=== PATIENT | female | born 1950 | race Caucasian/White ===

== ENCOUNTER 2016-07-14 16:04 | Inpatient (IN) | payer MEDICARE, OTHER ==
[~2016-07-14] VITALS: Ht 152.4 cm; Wt 84.4 kg
--- NOTE | ~2016-07-14 | PR ---
[place], [place] PROGRESS NOTE NAME: DESMOND GRIFFIN UNIT #: [id number] ROOM: [facility] DOCTOR: AVELINO ORTIZ MD,ANGEL BIRTHDATE: [birth year] DOS: 07/17/2016 SUBJECTIVE: The patient was seen and examined on 07/17/2016. She has been sitting on the bed at this time complaining of shortness of breath, intermittent nonproductive cough with minimal sputum expectoration. Denies symptoms of chest pain. She stated that she has been noted yesterday without any further improvement. OBJECTIVE: VITAL SIGNS: Showed normal temperature, respiratory rate 18, heart rate of 90, blood pressure 142/69. Pulse oxygen saturation of the patient recorded on 4 liters nasal cannula 96% saturation. HEENT: Shows moderate obesity. NECK: Supple. CARDIOVASCULAR SYSTEM: S1, S2 audible. LUNGS: For the patient without any wheeze or crackles. ABDOMEN: Soft, nontender. LABORATORY DATA: Culture of the sputum for the patient noted light growth of yeast from the patient . CBC this morning, WBC count 21.1, hemoglobin 9.4, hematocrit 30.4, platelet count 66,000. CMP of the patient this morning, glucose 294, BUN 41, creatinine 1.87. Albumin 2.5. IMPRESSION: The patient with ongoing acute exacerbation of chronic obstructive pulmonary disease with acute tracheobronchitis, acute on chronic hypoxic respiratory failure, improving leukopenia for the patient as well. Anemia, thrombocytopenia, the patient has been resolving. PLAN OF TREATMENT: Continuation of the bronchodilators, oxygen supplementation, corticosteroids. Medical management of hyperglycemia with the steroids that has been noted increased with use of the corticosteroids. Fibrobronchoscopy was suggested and planned to be done in the morning. The patient accepted the procedure. This should help find out more accurate pulmonary infection and to help resolve the coughing. Other symptoms of the patient which has been present with maximum medical therapy. NPO past midnight status will be achieved for tomorrow morning since the patient was agreeable for the procedure. Other supportive treatment in the meantime continued. Continue with the other treatment plan of management. BiPAP for this patient if tolerated could be used. [place], [place] PROGRESS NOTE NAME: DESMOND GRIFFIN UNIT #: [id number] ROOM: [facility] DOCTOR: ANGEL PRETTY MD BIRTHDATE: [birth year] ANGEL YOU MD CM:PNTRANS [phone] ANGEL ORTIZ MD 07/17/16 1444 interface
--- NOTE | ~2016-07-14 | PR ---
[place], [place] PROGRESS NOTE NAME: [id number] UNIT #: [id number] ROOM: [facility] DOCTOR: AVELINO ORTIZ MD,ANGEL BIRTHDATE: [birth year] DOS: 07/18/2016 SUBJECTIVE: She has been kept n.p.o. past midnight and bronchoscopy done today. Noted severe coughing and shortness of breath intermittently which was noted worse at rest. The wheezing was also described intermittently. There were no symptoms of chest pain. She was continued on oxygen supplementation. OBJECTIVE: VITAL SIGNS: Normal temperature, respiratory rate 16, heart rate 99, blood pressure 139/57. Pulse oxygen saturation of the patient on 3 liters nasal cannula 94% saturation recorded. HEENT AND NECK: Neck with chronic obesity. Neck was supple. Head was atraumatic. CARDIOVASCULAR: S1, S2 audible. LUNGS: Noted without any crackles. Scattered wheezing. ABDOMEN: Soft, nontender. LABORATORY DATA: CBC this morning: WBC count increased to 28.9. Hemoglobin 9.2, hematocrit 30.0, and platelet count 90,000. CMP this morning, BUN 51, creatinine 1.45. Glucose was noted as 258. Albumin 2.8, total protein 5.8. Blood glucose yesterday noted 153. IMPRESSION: Ongoing acute exacerbation of chronic obstructive pulmonary disease in the patient with acute bacterial pneumonia, acute on chronic hypoxic respiratory failure, leukocytosis, history of metastatic lung cancer, and other problems. PLAN OF TREATMENT: Proceed with bronchoscopy. At this time, no immediate change in treatment needs to be done. The patient would be assessed. If any changes in the treatment, that should be done after the bronchoscopy. Continue other supportive therapy, plan of management, usual care and management. Usual medical management of therapies. ANGEL YOU MD CM:EDILIA [id number] ANGEL ORTIZ MD 07/18/16 1147 interface
--- NOTE | ~2016-07-14 | PR ---
[place], [place] PROGRESS NOTE NAME: DESMOND GRIFFIN UNIT #: [id number] ROOM: [facility] DOCTOR: ANGEL PRETTY MD BIRTHDATE: [birth year] DOS: 07/16/2016 SUBJECTIVE: She has reported reduction in symptoms of shortness of breath and cough. The coughing has been noted with intermittent sputum expectoration. Denies any chest pain, the edema of lower extremities noted somewhat decreased. OBJECTIVE: VITAL SIGNS: Normal temperature, respiratory rate 18, heart rate 94, blood pressure 141/70. This morning, pulse oxygen saturation on 4 liters nasal cannula 94% saturation. HEENT: Chronic obesity. NECK: Supple. CARDIOVASCULAR: S1, S2 audible. LUNGS: Moderately reduced breath sounds with questionable crackles without any wheezing. ABDOMEN: Soft and obese. EXTREMITIES: Remains unchanged from yesterday. LABORATORY DATA: The patient's CMP today, BUN 29, creatinine 1.77, glucose of 256. The culture of the sputum preliminary showing normal laila, final culture results were pending. The cultures were taken on 07/15/2016. CBC of this morning, WBC count 13.5, hemoglobin 9.3, hematocrit 38.3, platelet count 41,000. IMPRESSION: 1. The patient with resolution of the leukopenia with persistent anemia and thrombocytopenia with history of metastatic lung cancer. 2. Acute pneumonia for this patient with acute on chronic hypoxic respiratory failure as well. 3. Chronic obesity. 4. Congestive heart failure, possibility with diastolic dysfunction. PLAN OF TREATMENT: Continue antibiotics, monitoring leukocytosis. Continue oxygen supplementation shows that the BiPAP and IV Solu-Medrol for acute exacerbation of chronic obstructive pulmonary disease. Continue current plan of management with oxygen supplementation, bronchodilators, antibiotics, and other medical treatment as in progress. Supportive plan of management. [place], [place] PROGRESS NOTE NAME: DESMOND GRIFFIN UNIT #: [id number] ROOM: [facility] DOCTOR: ANGEL PRETTY MD BIRTHDATE: [birth year] ANGEL YOU MD CM:PNTRANS [id number] ANGEL ORTIZ MD 07/16/16 2154 interface
--- NOTE | ~2016-07-14 | PR ---
[place], [place] PROGRESS NOTE NAME: DESMOND GRIFFIN UNIT #: [id number] ROOM: 529 DOCTOR: SATYA MATTSON MD BIRTHDATE: [birth year] DOS: 07/23/2016 SUBJECTIVE: The patient is still short of breath though feels better. She is awake, alert and responsive. REVIEW OF SYSTEMS HEENT: No trouble swallowing. No double vision. No loss of vision. No pain. ENT AND RESPIRATORY: No wheeze. No change in voice. No cough. No shortness of breath. No coughing up blood. No epistaxis. CARDIOLOGIC: No chest pain. No dizziness. No irregular heartbeat. No leg edema. No palpitations. No shortness of breath. HEMATOLOGIC AND LYMPH: No past transfusion. No fatigue. No loss of appetite. No easy bruising. GASTROENTEROLOGIC: No change in bowel habits. No vomiting blood. No abdominal cramping. No nausea. No vomiting. No diarrhea. No constipation. No blood in stool. FEMALE REPRODUCTIVE: No dyspareunia. No pelvic pain. MUSCULOSKELETAL: No back pain. No muscle pain or weakness. No tingling/numbness. UROLOGIC: No pain with urination. No difficulty urinating. No frequent urination. NEUROLOGIC: No burning pain in feet. No trouble with coordination. No loss of consciousness. No headache. No tingling/numbness. No memory loss. PHYSICAL EXAMINATION: GENERAL: She is a pleasant woman, in no apparent distress. VITAL SIGNS: Blood pressure 166/72, respirations 20, pulse 85 and temperature 97.7. HEENT: Normocephalic, atraumatic NECK AND THYROID: Supple. No JVD, thyromegaly, or lymphadenopathy. HEART: Normal S1, S2. Regular rate and rhythm. LUNGS: Show bilateral expiratory wheeze. ABDOMEN: Soft. Nontender, nondistended. Bowel sounds present. EXTREMITIES: Normal ROM. No clubbing. No edema. LABORATORY DATA: Sodium 136, potassium 4.4, chloride 94, bicarbonate 31 and EGFR is 36. White count 12.9, hemoglobin 10.0, hematocrit 31.9, platelet count 233. Peripheral smear shows nucleated cells, myelocytes and metamyelocytes. ASSESSMENT: 1. Leukocytosis, reactive. 2. Anemia of neoplastic disorder. 3. Abnormal peripheral smear. 4. Exacerbation of chronic obstructive pulmonary disease. 5. Possible sepsis. PLAN: She will continue antibiotics and her breathing is being treated accordingly. She has got abnormal peripheral smear and we will just keep a close watch, this is probably stress-induced. I will follow the counts on outpatient; if she continues abnormal peripheral smear, then further [place], [place] PROGRESS NOTE NAME: DESMOND GRIFFIN UNIT #: [id number] ROOM: 529 DOCTOR: SATYA MATTSON MD BIRTHDATE: [birth year] intervention. In the meantime, chemo is on hold. If her hemoglobin and hematocrit drops, then further intervention. Discussed with the patient in detail. Ample time was given for the patient to ask me questions. VQ scan has been ordered. SATYA MATTSON MD CM:PNTRANS [id number] SATYA MATTSON MD 07/23/16 231 interface
--- NOTE | ~2016-07-14 | PR ---
[place], [place] PROGRESS NOTE NAME: DESMOND GRIFFIN UNIT #: [id number] ROOM: 529 DOCTOR: ANGEL PRETTY MD BIRTHDATE: [birth year] DOS: 07/22/2016 SUBJECTIVE: The patient was still complaining of symptoms of shortness of breath with exertion. The cough has been noted mild for this patient at this time. The wheezing has been noted intermittently. Denies symptoms of chest pain or any abdominal pain. OBJECTIVE: VITAL SIGNS: Shows normal temperature, respiratory rate 20, heart rate 77, and blood pressure 146/74. Pulse oxygen saturation on 4 liters nasal cannula 99% saturation recorded. HEENT: Shows no acute change. NECK: Supple. CARDIOVASCULAR SYSTEM: S1, S2 audible. LUNGS: Noted moderate decreased breath sounds without any wheezing or crackles. ABDOMEN: Noted soft, nontender. EXTREMITIES: Shows no edema. IMPRESSION: 1. The patient who has been currently noted with gradual reduction in resolution of acute exacerbation of chronic obstructive pulmonary disease, acute tracheobronchitis. 2. History of metastatic lung cancer. PLAN OF TREATMENT: No changes in the plan of management. Continue current therapy plan as in progress. Other supportive therapy, plan of care. Usual treatment. Supportive plan of management. ANGEL YOU MD CM:PNTRANS [id number] ANGEL ORTIZ MD 07/22/16 1527 interface
--- NOTE | ~2016-07-14 | PROC NOTE ---
[place], [place] PROCEDURE NOTE NAME: DESMOND GRIFFIN UNIT #: [id number] ROOM: 529 DOCTOR: AVELINO ORTIZ MD,ANGEL BIRTHDATE: [birth year] DOS: 07/18/2016 PROCEDURE: Bronchoscopy. PREOPERATIVE DIAGNOSES: The patient with coughing and wheezing, not resolving with current treatment with exacerbation of chronic obstructive pulmonary disease. POSTOPERATIVE DIAGNOSES: Removal of multiple plugs and mucus in endobronchial tree bilaterally without any finding of endobronchial lesions. PROCEDURE DESCRIPTION: Informed consent obtained for the patient. The patient was brought to the OR and placed in supine position. Conscious sedation was administered by the Anesthesia Department. After achieving appropriate sedation, airway introduced into the mouth. Bronchoscope advanced into the airway into laryngeal area. Epiglottis and vocal cord were seen. The vocal cord for the patient was seen moving symmetrically with movements. Bronchoscope advanced through the vocal cord. The patient's tracheal lumen showed moderate amount of thick mucus secretion with small purulent secretion suctioned out with the help of normal saline wash and sent for cultures. The sofía was noted sharp. Right upper, right middle, left upper, lingula, lower lobe bronchi were all examined bilaterally. All the secretions of the patient suctioned out with the help of normal saline wash for this patient causing impaction of the endobronchial mucus plugs of the patient bilaterally, sent for culture. Procedure was well tolerated by the patient without any complications. Postoperative findings will be discussed with the patient once the patient recovers the effects of acute sedation. Based on the current bronchoscopy, no change in treatment needs to be done. ANGEL YOU MD CM:PROCNOTE:PROCEDURE NOTE [id number] ANGEL ORTIZ MD
--- NOTE | ~2016-07-14 | PR ---
[place], [place] PROGRESS NOTE NAME: DESMOND GRIFFIN UNIT #: [id number] ROOM: 529 DOCTOR: SATYA MATTSON MD BIRTHDATE: [birth year] DOS: 07/21/2016 SUBJECTIVE: The patient is doing better, though still having difficulty breathing. REVIEW OF SYSTEMS: HEENT: No trouble swallowing. No double vision. No loss of vision. No pain. ENT AND RESPIRATORY: No wheeze. No change in voice. No cough. No shortness of breath. No coughing up blood. No epistaxis. CARDIOLOGIC: No chest pain. No dizziness. No irregular heartbeat. No leg edema. No palpitations. No shortness of breath. HEMATOLOGIC AND LYMPH: No past transfusion. No fatigue. No loss of appetite. No easy bruising. GASTROENTEROLOGIC: No change in bowel habits. No vomiting blood. No abdominal cramping. No nausea. No vomiting. No diarrhea. No constipation. No blood in stool. FEMALE REPRODUCTIVE: No dyspareunia. No pelvic pain. MUSCULOSKELETAL: No back pain. No muscle pain or weakness. No tingling/numbness. UROLOGIC: No pain with urination. No difficulty urinating. No frequent urination. NEUROLOGIC: No burning pain in feet. No trouble with coordination. No loss of consciousness. No headache. No tingling/numbness. No memory loss. PHYSICAL EXAMINATION: GENERAL: She is a pleasant woman in no apparent disorders. VITAL SIGNS: Stable. She is afebrile. HEENT: Normocephalic, atraumatic. NECK AND THYROID: Supple. No JVD, thyromegaly, or lymphadenopathy. HEART: Normal S1, S2. Regular rate and rhythm. LUNGS: Bilateral expiratory wheeze. ABDOMEN: Soft. Nontender, nondistended. Bowel sounds present. EXTREMITIES: Normal ROM. No clubbing. No edema. ASSESSMENT: 1. Exacerbation of chronic obstructive pulmonary disease. 2. Metastatic lung cancer. 3. Leukocytosis, reactive. 4. Anemia of neoplastic disorder. PLAN: We will wait for overall condition to improve. Continue the broad-spectrum antibiotics and the treatment exacerbation of chronic obstructive pulmonary disease. We will hold the chemo for now. We will keep a close watch on her hemoglobin and hematocrit. If it drops further, then further intervention. Discussed with the patient. [place], [place] PROGRESS NOTE NAME: DESMOND GRIFFIN UNIT #: [id number] ROOM: 529 DOCTOR: SATYA MATTSON MD BIRTHDATE: [birth year] SATYA MATTSON MD CM:PNVIVIANE 4 3 SATYA MATTSON MD 07/21/16944 interface
--- NOTE | ~2016-07-14 | PR ---
[place], [place] PROGRESS NOTE NAME: DESMOND GRIFFIN UNIT #: [id number] ROOM: 529 DOCTOR: ANGEL PRETTY MD BIRTHDATE: [birth year] DOS: 07/19/2016 PULMONARY FOLLOWUP NOTE SUBJECTIVE: The patient was seen and examined on 07/19/2016. She has bronchoscopy done yesterday with reduction in symptoms of cough, shortness of breath. The patient was still describing. There were no symptoms of chest pain. The wheezing has been described intermittently. She was transferred to medical floor. OBJECTIVE: VITAL SIGNS: Normal temperature, respiratory rate 20, heart rate 98, blood pressure 160/70. Pulse oxygen saturation of the patient noted on 4 liters nasal cannula 97% saturation. HEENT: Chronic obesity. NECK: Supple. CARDIOVASCULAR: S1, S2 audible. LUNGS: The patient was noted without any crackles. Scattered expiratory wheezing. ABDOMEN: Soft, obese, nontender. EXTREMITIES: Chronic obesity. LABORATORY DATA: CBC that was done this morning: The patient showed WBC count 22.8, hemoglobin 9.6, hematocrit 30.9, platelet count 124,000. The Gram stain of the bronchial washing on the patient, many white blood cells, moderate epithelial cells, few gram-positive cocci in pairs and a few gram-negative bacilli. IMPRESSION: 1. The patient with acute on chronic hypoxic respiratory failure with acute exacerbation of chronic obstructive pulmonary disease as well as suspected acute pneumonia. 2. Leukocytosis, which has been noted at this time with previous leukopenia. 3. Resolving thrombocytopenia, progressive. 4. 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 PLAN OF TREATMENT: Monitoring culture results. Continue bronchodilators and oxygen supplementation. The dose of Solu-Medrol will be decreased for the patient to b.i.d. dosing today. Other supportive therapy, plan and management to be continued as well. Usual care. Further treatment changes will be done based on the progression of the illness and the culture results. [place], [place] PROGRESS NOTE NAME: DESMOND GRIFFIN UNIT #: [id number] ROOM: 529 DOCTOR: ANGEL PRETTY MD BIRTHDATE: [birth year] ANGEL YOU MD CM:PNTRANS [id number] ANGEL ORTIZ MD 07/19/16 1542 interface
--- NOTE | ~2016-07-14 | PR ---
[place], [place] PROGRESS NOTE NAME: DESMOND GRIFFIN UNIT #: [id number] ROOM: 529 DOCTOR: ANGEL PRETTY MD BIRTHDATE: [birth year] DOS: 07/21/2016 SUBJECTIVE: She has been noted comfortable at this time, resting and sitting on the chair. Shortness of breath of the patient was still described for the patient as the main complaint for the patient with partial reduction. Coughing has been improving. There are no symptoms of chest pain, wheezing described by the patient. She has bronchoscopy done last week. OBJECTIVE: VITAL SIGNS: Showed normal temperature, respiratory rate 20, heart rate of 94, blood pressure 172/81. Pulse oxygen saturation for the patient recorded on 4 L nasal cannula 96%-97% saturation. HEENT: Examination shows no acute change. NECK: Supple. CARDIOVASCULAR: S1, S2 audible. LUNGS: Without any wheezing or crackles at the present time. ABDOMEN: Soft, nontender. EXTREMITIES: Show some mild edema. LABORATORY DATA: BMP today, BUN 52, creatinine 1.49, glucose 267, remaining electrolytes normal. CBC today, WBC count 11,000, hemoglobin 9.6, hematocrit 29.8, platelet count 159,000. IMPRESSION: 1. The patient with slow gradual reduction and improvement in the respiratory symptom noted with acute on chronic hypoxic respiratory failure, exacerbation of chronic obstructive pulmonary disease. 2. History of metastatic lung cancer as a squamous cell cancer. PLAN OF TREATMENT: No changes from the pulmonary standpoint at this time need to be done. Continue Solu-Medrol for this patient b.i.d. dosing, bronchodilators, oxygen supplementation, other plan of management. Leukocytosis has been resolving. [place], [place] PROGRESS NOTE NAME: DESMOND GRIFFIN UNIT #: [id number] ROOM: 529 DOCTOR: ANGEL PRETTY MD BIRTHDATE: [birth year] ANGEL YOU MD CM:PNTRANS [id number] ANGEL ORTIZ MD 07/21/16 1442 interface
--- NOTE | ~2016-07-14 | CON ---
[place], [place] REPORT OF CONSULTATION NAME: DESMOND GRIFFIN UNIT #: [id number] ROOM: [facility] DOCTOR: SATYA MATTSON MD BIRTHDATE: [birth year] DOS: 07/15/2016 HISTORY OF PRESENT ILLNESS: The patient is a pleasant woman with a history of metastatic lung cancer who called me yesterday that she is very short of breath ____ came to my office for blood work when she was noticed to have increasing short of breath with productive cough. Subsequently, she was advised to go to the Emergency Room for further evaluation. PAST MEDICAL HISTORY: Significant for metastatic lung cancer, chronic kidney disease, tsatk-[id number]-nayhtps respiratory failure, diabetes mellitus, diastolic CHF, essential hypertension, hypothyroidism, as well as O2 dependent COPD. PAST SURGICAL HISTORY: Appendectomy, oophorectomy, history of dilatation and curretage, history of tubal ligation. SOCIAL HISTORY: No drinking or drug use, stopped smoking recently. FAMILY HISTORY: Mother had [place] at 56. Father had bladder cancer and COPD. ALLERGIES: IVP DYE, IODINE, BACTRIM. MEDICATIONS: She is on albuterol, Xanax, Norvasc, aspirin, Wellbutrin, BuSpar, fish oil, Breo Ellipta, furosemide, gabapentin, insulin, levothyroxine sodium, lovastatin, oxygen 4 liters per minute, potassium chloride, Januvia, and sodium chloride. REVIEW OF SYSTEMS: CONSTITUTIONAL: No chills. No fatigue. No fever. No loss of appetite. No night sweats. No weakness. No weight loss. HEENT: No trouble swallowing. No loss of smell. No loss of hearing. No double vision. No pain. No discharge. ENT AND RESPIRATORY: She has been having increasing shortness of breath and wheezing. No sore throat. No change in voice. No hearing loss. No nose bleed. No cough. No trouble breathing through nose. No coughing up blood. No epistaxis. CARDIOVASCULAR: No chest pain. No dizziness. No irregular heartbeat. No leg edema. No pain in legs while walking. No palpitations. No shortness of breath. DERMATOLOGIC: No acne. No hives. No laceration. No mole. No rash. ENDOCRINE: No cold intolerance. No diabetes. No fatigue. No hot flashes. No polydipsia. No polyuria. No urinating frequently. No weight loss. HEMATOLOGIC AND LYMPH: No fatigue. No easy bruising. GASTROENTEROLOGIC: No change in bowel habits. No indigestion. No frequent bloating. No vomiting blood. No abdominal cramping. No nausea. No heartburn. No vomiting. No abdominal pain. No dysphagia. No diarrhea. No constipation. No blood in stool. FEMALE REPRODUCTIVE: No vaginal itching. No difficulty urinating. No heavy periods. No dyspareunia. No sexually active. No dysmenorrhea. No pelvic pain. No breast pain. No nipple discharge. No abnormal vaginal discharge. No hot flashes. [place], [place] REPORT OF CONSULTATION NAME: DESMOND GRIFFIN UNIT #: [id number] ROOM: [facility] DOCTOR: SATYA MATTSON MD BIRTHDATE: [birth year] MUSCULOSKELETAL: No back pain. No muscle pain or weakness. No neck pain. No tingling/numbness. No swelling/bruising. No osteoporosis treatment. OPHTHALMOLOGIC: No double vision. No diminished vision. No loss of vision. UROLOGIC: No dysuria. No frequent nighttime urination. No irregular periods. No pain with urination. No difficulty urinating. No blood in urine. No frequent urination. No urinary incontinence. NEUROLOGIC: No loss of sensation in specific body area. No vertigo. No burning pain in feet. No trouble with balance. No trouble with coordination. No loss of consciousness. No loss of feeling/power. No confusion. No headache. No tingling/numbness. PSYCHOLOGIC: No tinnitus. No headaches. No shortness of breath. No weight decrease. No nausea. No vomiting. No abdominal discomfort. No constipation. No diarrhea. No depression. No anxiety. PHYSICAL EXAMINATION: GENERAL: Pleasant woman, in no apparent distress, short of breath. VITAL SIGNS: Stable. She is afebrile. HEENT: Oral mucosa appears intact. The external ears are normal in appearance. Nares are patent without lesions, exudates, erythema, or inflammation. Tongue is symmetrical. Uvula is midline. NECK AND THYROID: Neck supple without palpable masses. Trachea is midline. No thyromegaly. No carotid bruit or JVD. BREASTS: Normal. Nipples unremarkable. No drainage. No lumps felt on either side. HEART: Normal S1, S2, without significant murmur, rub, or gallop. LUNGS: Bilateral expiratory wheeze and decrease air sounds bilaterally. ABDOMEN: No costovertebral angle tenderness. Soft. No organomegaly or masses. Nontender. No hernias present. Liver and spleen are not palpable. LYMPHATIC: No adenopathy noted in the cervical, supraclavicular, axillary, or inguinal regions. NEUROLOGIC: Nonfocal. Oriented to person, place, and time. MENTAL STATUS: Appropriate for mood and affect. PERIPHERAL PULSES: No varicosities. Femoral and pedal pulses are palpable. EXTREMITIES: Without cyanosis, clubbing, or edema. No gross anomalies. LABORATORY DATA: Sodium of 140, potassium 3.9, chloride 102, bicarbonate 28, EGFR is 30, AST is 26, ALT 51. White count of 4.7, hemoglobin 10.4, hematocrit 33.3, platelet count of 34,000. ASSESSMENT: 1. Metastatic lung cancer, undergoing chemotherapy. 2. Pancytopenia secondary to chemotherapy. 3. Anemia of neoplastic disorder. 4. Exacerbation of chronic obstructive pulmonary disease. PLAN: We will keep a close watch at this time. The patient is not bleeding or bruising but if the hemoglobin or platelet drop, then further intervention. Her white count is low ____. Thanks for consulting and letting me participate in the care of this interesting [place], [place] REPORT OF CONSULTATION NAME: DESMOND GRIFFIN UNIT #: [id number] ROOM: [facility] DOCTOR: SATYA MATTSON MD BIRTHDATE: [birth year] patient. SATYA MATTSON MD CM:CONSTR:REPORT OF CONSULTATION 07/15/16 1245 interface
--- NOTE | ~2016-07-14 | CON ---
[place], [place] REPORT OF CONSULTATION NAME: DESMOND GRIFFIN UNIT #: [id number] ROOM: [facility] DOCTOR: ANGEL PRETTY MD BIRTHDATE: [birth year] DOS: 07/15/2016 PULMONARY CONSULTATION EVALUATION AND MANAGEMENT REQUESTING PHYSICIAN: Hospitalist Services. REASON FOR CONSULTATION: Assess the patient for symptoms of acute shortness of breath and current abnormal respiratory symptom. 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 She was seen by Dr. Pinto in office yesterday, noted with increased hypoxia with usual oxygen supplementation with symptoms of increased shortness of breath. She was sent to the Emergency Room for further assessment. Shortness of breath has been occurring for the patient for the last few days as per the patient with minimal exertion. She was also noted with coughing, which has been noted productive with yellowish sputum expectoration. She denies any symptoms of acute chest pain. Denies symptoms of hemoptysis. The patient has been currently admitted to the hospital for the medical management of current problem. REVIEW OF SYSTEMS: CONSTITUTIONAL: She does complain of symptoms of fatigue and tiredness. Denies symptoms of fever or chills. EYES: Denies any burning, redness, or tenderness. EARS, NOSE, AND THROAT: No sore throat, hoarseness, otalgia, postnasal drainage. CARDIOVASCULAR: Denies anginal pain noted with increased edema of the lower extremities recently as well without any pain. EYES: Denies any burning, redness, or tenderness. EARS, NOSE, THROAT SYMPTOMS: No sore throat, hoarseness, otalgia, postnasal drainage or epistaxis. CARDIOVASCULAR: Edema of the lower extremities was noted gradually increased without any pain. There were no symptoms of palpitations or angina. GASTROINTESTINAL SYMPTOMS: Denies dysphagia, nausea, vomiting, diarrhea, abdominal pain, hematemesis, melena, or hematochezia. SKIN: Denies any abnormal lesions or rashes. MUSCULOSKELETAL: The patient denies acute joint pain, redness or tenderness, joint deformities. CENTRAL NERVOUS SYSTEM: The patient was noted without any dizziness, headache, or diplopia. Remaining systems were reviewed with the patient, they were noted all negative. Past medical history, past surgical history, social history, family history have been reviewed with the patient and remains unchanged after review with the patient since the consultation of 06/21/2016. Please review the documentation which is [facility] the [facility] for reference. [place], [place] REPORT OF CONSULTATION NAME: DESMOND GRIFFIN UNIT #: [id number] ROOM: [facility] DOCTOR: ANGEL PRETTY MD BIRTHDATE: [birth year] MEDICATIONS: Current administered medications for the patient, which has been noted as use of Wellbutrin, levothyroxine, Levemir insulin, simvastatin, IV Solu-Medrol 40 mg q.8 hours, sliding scale insulin coverage, Neurontin, Norvasc, aspirin, Neupogen shots, Levaquin, vancomycin, meropenem, BuSpar, Xanax, Vicodin and other p.r.n. medications administration. DRUG ALLERGY HISTORY: The patient was noted as allergy to: 1. IVP DYE. 2. BACTRIM. PHYSICAL EXAMINATION: GENERAL: This is a 65-year-old female who has been currently sitting on the chair without any distress at this time of assessment. Height of 5 feet, weight of 186 pounds, BMI of 36.3. VITAL SIGNS: Temperature 99.9 degrees Fahrenheit, normal temperature, respiratory rate 20-18, heart rate of 102-69, blood pressure 164/80-142/65. Pulse oxygen saturation of the patient recorded on 6 L nasal cannula 97% saturation, 84% noted on admission on usual oxygen supplementation 4 liters nasal cannula. HEENT: Moderate obesity. Head was atraumatic. Eyes nonicterus. NECK: Supple. CARDIOVASCULAR: S1, S2 audible. LUNGS: Shows crackles were noted in the right lower portion of the lungs for this patient with scattered in the left lung. ABDOMEN: Soft. Moderate obesity. EXTREMITIES: Shows [id number] edema of bilateral lower extremities. CENTRAL NERVOUS SYSTEM: Cranial nerves 2-12 intact. No focal deficits. SKIN: No lesions or rashes. MUSCULOSKELETAL: No acute deformities. LABORATORY DATA: CBC of the patient that was done yesterday on admission, WBC count 1.7, hemoglobin 10.4, hematocrit 33.3, platelet count was 34,000. Influenza A and B nasal washing antigen of the patient yesterday were noted negative. PT/PTT yesterday was noted as negative. CMP of the patient of 07/14/2016 on admission in the Emergency Room, glucose 242, BUN 23, creatinine 1.71. The chest x-ray of the patient that was done on 07/14/2016 shows bilateral pulmonary infiltration without any acute visible infiltration, which is new. CMP this morning was noted BUN 61, creatinine 1.65. Troponin of patient and CKMB of the patient in the last 24 hours 3 sets for the patient noted as normal. CBC of this morning, WBC count of 7.0, hemoglobin 10.0, hematocrit 32.4, platelet count 40,000. CT scan of the chest was done for this patient yesterday without any contrast shows evidence of consolidation, infiltration noted in the left lower lobe with areas of pulmonary nodular opacity was noted with past known history of metastatic cancer with lymphadenopathy. The lymph node enlargement noted to be partially decreased. IMPRESSION: 1. The patient who has been currently admitted to the hospital noted with acute on chronic hypoxic respiratory failure with acute exacerbation of chronic obstructive pulmonary disease. [place], [place] REPORT OF CONSULTATION NAME: DESMOND GRIFFIN UNIT #: [id number] ROOM: [facility] DOCTOR: AVELINO ORTIZ [facility] BIRTH[facility]: [birth year] 2. Immunosuppression secondary to chemotherapy with history of metastatic lung cancer, which has been treated recently with chemotherapy. 3. Previous history of nicotine abuse. 4. 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 5. Mild acute kidney injury secondary to the intravascular volume depletion. 6. Edema of the lower extremities, most likely related to congestive heart failure, possibly to diastolic dysfunction. 7. Chronic obesity as well. PLAN OF TREATMENT: Continue current antibiotics, immunosuppression, monitor culture results. Obtain sputum for Gram stain and culture. Monitor culture results of the blood. Growth factor for the patient for the leukopenia as well. The patient will be given the platelet if the platelet count noted less than 10,000. At this time, platelet count was noted partially improved for the patient from yesterday. Reduction of the antibiotic spectrum based on the culture results. Acute pneumonia, which has been noted to be currently treated for gram-positive and gram-negative organism because of recurrent hospitalization that could result in gram-positive, gram-negative pneumonia. Continue bronchodilators. Reduction of the corticosteroids based on depression of symptoms. DVT prophylaxis for the patient with the GIANNA diaz because of recurrent thrombocytopenia. Other supportive therapy, plan of management and other care. Further change in treatment will be done based on progression of illness. Thanks for allowing me to participate in the care of this patient. ANGEL YOU MD CM:CONSTR:REPORT OF CONSULTATION 1338 07/15/16 2349 interface
--- NOTE | ~2016-07-14 | PR ---
[place], [place] PROGRESS NOTE NAME: DESMOND GRIFFIN UNIT #: [id number] ROOM: 529 DOCTOR: CARLI MORGAN MD BIRTHDATE: [birth year] DOS: 07/19/2016 REASON FOR FOLLOWUP: Pneumonia, on immunocompromised host. SUBJECTIVE: The patient is feeling better, had a bronchoscopy yesterday, worried that her Lasix is discontinued. No fever, no chills. Occasional shortness of breath and cough. PHYSICAL EXAMINATION: VITAL SIGNS: Showed temperature of 98.3, heart rate of 103, blood pressure of 153/82, respiratory rate of 20, pulse ox of 97 on oxygen supplementation. GENERAL APPEARANCE: Awake, alert, oriented, sitting up in the chair, no acute distress. HEENT: Oral cavity moist and intact. NECK: Supple, no JVD, no lymphadenopathy. HEART: Regular rate and rhythm. S1, S2 normal. No murmurs, gallops or rubs. LUNGS: Clear to auscultation except for occasional crackles, right base. ABDOMEN: Soft, nontender, nondistended, good bowel sounds. EXTREMITIES: Bilateral lower extremity edema. LABORATORY DATA: Reviewed. WBC of 22.8, hemoglobin 9.6, platelets of 124. Microbiology reviewed. Gram stain of the BAL shows few Gram-negative bacilli and Gram-positive cocci in pairs and moderate epithelial cells with many WBCs. ASSESSMENT AND PLAN: 1. Healthcare-associated pneumonia in an immunocompromised host with right basal consolidation, currently on IV cefepime 2 grams q.12 hours. Continue the same. Upon discharge can be safely switched to levofloxacin 750 mg p.o. once daily for 7 more days. Follow up BAL culture results and adjust antibiotics accordingly. I believe she is covered with cefepime for now since it is only showing Gram-negative bacilli and Gram-positive cocci in pairs. 2. Lung cancer, currently undergoing chemotherapy from Dr. Pinto. 3. Leukocytosis, likely secondary to profound bone marrow response from colony simulating factors, administered by Hematology-Oncology. [place], [place] PROGRESS NOTE NAME: DESMOND GRIFFIN UNIT #: [id number] ROOM: 529 DOCTOR: CARLI MORGAN MD BIRTHDATE: [birth year] CARLI MORGAN MD CM:EDILIA [id number] CARLI MORGAN MD 07/19/162230 interface
--- NOTE | ~2016-07-14 | PR ---
[place], [place] PROGRESS NOTE NAME: DESMOND GRIFFIN UNIT #: [id number] ROOM: 529 DOCTOR: AVELINO ORTIZ MD,ANGEL BIRTHDATE: [birth year] DOS: 07/23/2016 SUBJECTIVE: She has been noted without any change in respiratory status, still complained of symptoms of shortness of breath and inability to ambulate because of shortness of breath, sitting on the chair this morning. She denies any symptoms of chest pain. Cough has been improving. OBJECTIVE: VITAL SIGNS: Normal temperature, respiratory rate 20, heart rate 80, blood pressure 166/72. Intake for the patient 1930, output 6600 mL. Pulse oxygen saturation on 4 liters nasal cannula 96% saturation. HEENT: Moderate obesity. NECK: Supple. CARDIOVASCULAR: S1, S2 audible. LUNGS: The patient was noted without any wheeze or crackles at the present time. ABDOMEN: Soft, nontender. IMPRESSION: Stable respiratory status with exacerbation of chronic obstructive pulmonary disease, acute tracheobronchitis, history of metastatic lung cancer, and muscle deconditioning. PLAN OF TREATMENT: No changes from the pulmonary standpoint. Continue the patient on current therapy, plan of care. Usual care. Other supportive plan of management. Usual medical therapies. ANGEL YOU MD CM:PNTRANS [id number] ANGEL ORTIZ MD 07/23/16 2327 interface
--- NOTE | ~2016-07-14 | PR ---
[place], [place] PROGRESS NOTE NAME: DESMOND GRIFFIN UNIT #: [id number] ROOM: 529 DOCTOR: SATYA MATTSON MD BIRTHDATE: [birth year] DOS: 07/22/2016 SUBJECTIVE: The patient is doing better, sitting in the chair. REVIEW OF SYSTEMS HEENT: No trouble swallowing. No double vision. No loss of vision. No pain. ENT AND RESPIRATORY: No wheeze. No change in voice. No cough. No shortness of breath. No coughing up blood. No epistaxis. CARDIOLOGIC: No chest pain. No dizziness. No irregular heartbeat. No leg edema. No palpitations. No shortness of breath. HEMATOLOGIC AND LYMPH: No past transfusion. No fatigue. No loss of appetite. No easy bruising. GASTROENEROLOGIC: No change in bowel habits. No vomiting blood. No abdominal cramping. No nausea. No vomiting. No diarrhea. No constipation. No blood in stool. FEMALE REPRODUCTIVE: No dyspareunia. No pelvic pain. MUSCULOSKELETAL: No back pain. No muscle pain or weakness. No tingling/numbness. UROLOGIC: No pain with urination. No difficulty urinating. No frequent urination. NEUROLOGIC: No burning pain in feet. No trouble with coordination. No loss of consciousness. No headache. No tingling/numbness. No memory loss. PHYSICAL EXAMINATION GENERAL: Pleasant woman, in no apparent distress. VITAL SIGNS: Stable. She is afebrile. HEENT: Normocephalic, atraumatic NECK AND THYROID: Supple. No JVD, thyromegaly, or lymphadenopathy. HEART: Normal S1, S2. Regular rate and rhythm. LUNGS: Clear to auscultation and percussion. ABDOMEN: Soft. Nontender, nondistended. Bowel sounds present. EXTREMITIES: Normal ROM. No clubbing. No edema. LABORATORY DATA: Sodium 137, potassium 4.4, chloride 99, bicarb 52. EGFR is 35. White count 11.0, hemoglobin 9.6, hematocrit 29.8, platelet count of 459,000. ASSESSMENT: 1. Lung cancer stage 4. 2. Leukocytosis, reactive. 3. Anemia of neoplastic disorder. PLAN: Overall, she is doing better. Her breathing is getting much better. Her hemoglobin and hematocrit are stable. Chemo is on hold. We will reevaluate him next week depending on that, further intervention. Discussed with the patient. [place], [place] PROGRESS NOTE NAME: GRIFFINKELLEYDESMOND A UNIT #: [id number] ROOM: [facility] DOCTOR: SATYA MATTSON MD BIRTHDATE: [birth year] SATYA MATTSON MD CM:PNTRANS [id number] SATYA MATTSON MD 07/23/16 0033 interface
--- NOTE | ~2016-07-14 | PR ---
[place], [place] PROGRESS NOTE NAME: DESMOND GRIFFIN UNIT #: [id number] ROOM: [facility] DOCTOR: SATYA MATTSON MD BIRTHDATE: [birth year] DOS: 07/16/2016 SUBJECTIVE: She is more comfortable today, lying in the bed. REVIEW OF SYSTEMS HEENT: No trouble swallowing. No double vision. No loss of vision. No pain. ENT AND RESPIRATORY: No wheeze. No change in voice. No cough. No shortness of breath. No coughing up blood. No epistaxis. CARDIOLOGIC: No chest pain. No dizziness. No irregular heartbeat. No leg edema. No palpitations. No shortness of breath. HEMATOLOGIC AND LYMPH: No past transfusion. No fatigue. No loss of appetite. No easy bruising. GASTROENEROLOGIC: No change in bowel habits. No vomiting blood. No abdominal cramping. No nausea. No vomiting. No diarrhea. No constipation. No blood in stool. FEMALE REPRODUCTIVE: No dyspareunia. No pelvic pain. MUSCULOSKELETAL: No back pain. No muscle pain or weakness. No tingling/numbness. UROLOGIC: No pain with urination. No difficulty urinating. No frequent urination. NEUROLOGIC: No burning pain in feet. No trouble with coordination. No loss of consciousness. No headache. No tingling/numbness. No memory loss. PHYSICAL EXAMINATION GENERAL: Pleasant woman in no apparent distress. VITAL SIGNS: Stable. She is afebrile. HEENT: Normocephalic, atraumatic NECK AND THYROID: Supple. No JVD, thyromegaly, or lymphadenopathy. HEART: Normal S1, S2. Regular rate and rhythm. LUNGS: expiratory wheeze with decreased breath sounds bilaterally. ABDOMEN: Soft. Nontender, nondistended. Bowel sounds present. EXTREMITIES: Normal ROM. No clubbing. No edema. LABORATORY DATA: White count of 13.5, hemoglobin of 9.3, hematocrit 30.3, platelet count of 41,000. Peripheral smear shows mild metamyelocytes. Glucose of 256, BUN 29. EGFR 29. Sodium 139, potassium 4.3, chloride 102, calcium 8.1. SGOT is 12, SGPT 36. ASSESSMENT: 1. Stage 4 nonsmall cell lung cancer. 2. Anemia of neoplastic disorder. 3. Leukocytosis, probably reactive. 4. Exacerbation of chronic obstructive pulmonary disease. 5. Chronic kidney disease. PLAN: The patient will continue broad spectrum antibiotics and respiratory treatment. Her hemoglobin and hematocrit is stable, if it drops, then further intervention. In the meantime, we will keep a close watch on the white count. There is abnormal cells in the peripheral smear, expected to improve once her overall improves. I had detailed discussion with the patient about it, [place], [place] PROGRESS NOTE NAME: ELIASDESMOND A UNIT #: [id number] ROOM: [facility] DOCTOR: SRINIVASAN GE,SATYA BIRTHDATE: [birth year] seemed to understand it. Ample time was given to the patient to ask me questions. SATYA MATTSON MD CM:PNTRANS [id number] SATYA MATTSON MD 07/16/162317 interface
--- NOTE | ~2016-07-14 | PR ---
[place], [place] PROGRESS NOTE NAME: DESMOND GRIFFIN UNIT #: [id number] ROOM: 529 DOCTOR: AVELINO ORTIZ MD,ANGEL BIRTHDATE: [birth year] DOS: 07/20/2016 SUBJECTIVE: She has been noted the same at this time, still complaining of shortness of breath, coughing has been subsiding. There were no symptoms of chest pain. Wheezing of the patient was described to be mild. OBJECTIVE: VITAL SIGNS: Normal temperature, respiratory rate 20, heart rate 94, blood pressure 168/83. Intake was 2100 mL, output 3500 mL. Pulse oxygen saturation 4 liters nasal cannula 96% saturation. HEENT: Chronic obesity. NECK: Supple. CARDIOVASCULAR: S1, S2 audible. LUNGS: The patient was noted with moderate decreased breath sounds, mild expiratory wheezing, no crackles. ABDOMEN: Soft, nontender. IMPRESSION: The patient with acute on chronic hypoxic respiratory failure, exacerbation of chronic obstructive pulmonary disease, history of lung cancer and other problems, slowly responding to the treatment. PLAN OF TREATMENT: No change in plan of management. Continue the patient on current therapy and plan of care. Usual care, other supportive plan of care. ANGEL YOU MD CM:PNTRANS [id number] ANGEL ORTIZ MD 07/21/16 0034 interface
--- NOTE | ~2016-07-14 | PR ---
[place], [place] PROGRESS NOTE NAME: DESMOND GRIFFIN UNIT #: [id number] ROOM: 529 DOCTOR: ANGEL PRETTY MD BIRTHDATE: [birth year] DOS: 07/24/2016 PULMONARY FOLLOWUP SUBJECTIVE: She stated persistent symptoms of shortness of breath. The cough has been noted sometime with intermittent sputum expectoration. She was continued on diuretic therapy and remains ____ in the last several days. She has been sitting on the chair. PHYSICAL EXAMINATION: VITAL SIGNS: The patient normal temperature, respiratory rate 19, heart rate 95, blood pressure 150/60 and 137/70. The pulse oxygen saturation of the patient recorded as 98% on 4 L nasal cannula. HEENT: No acute change. NECK: Supple and obese. CARDIOVASCULAR: S1, S2 is audible. LUNGS: The patient noted without any wheezing or crackles. Breaths are noted mild to moderately decreased bilaterally. ABDOMEN: Soft, nontender. LABORATORY DATA: CBC of the patient that was done this morning was noted as WBC count 12.6, hemoglobin 10.2, hematocrit 33.4, platelet count was normal. The patient had a V/Q scan, which was ordered by the primary care attending as the patient was noted low probability of pulmonary embolism. IMPRESSION: Acute congestive heart failure, acute on chronic hypoxic respiratory failure, exacerbation of chronic obstructive pulmonary disease. PLAN OF TREATMENT: No changes in plan of management. Continue the patient's current therapy, plan of management as previously in progress. She is already getting IV Solu-Medrol b.i.d. antibiotics based on the culture results and had bronchoscopy done. At this time stating that she has not been feeling any improvement in symptoms; however, in physical examination the patient was consistent with resolution of edema, wheezing and other symptoms. The patient was refusing to be placed in another facility. The patient further continued therapy and continue to be treated at this time in the hospital for acute care. [place], [place] PROGRESS NOTE NAME: DESMOND GRIFFIN UNIT #: [id number] ROOM: 529 DOCTOR: ANGEL PRETTY MD BIRTHDATE: [birth year] ANGEL YOU MD CM:PNVIVIANE [id number] ANGEL ORTIZ MD 07/25/16 0442 interface
--- NOTE | ~2016-07-14 | PR ---
[place], [place] PROGRESS NOTE NAME: DESMOND GRIFFIN UNIT #: [id number] ROOM: 529 DOCTOR: SATYA MATTSON MD BIRTHDATE: [birth year] DOS: 07/24/2016 SUBJECTIVE: The patient is still complaining of short of breath. She is not much changed from the day she was admitted. She appears to be more comfortable than before. REVIEW OF SYSTEMS HEENT: No trouble swallowing. No double vision. No loss of vision. No pain. ENT AND RESPIRATORY: No wheeze. No change in voice. No cough. No shortness of breath. No coughing up blood. No epistaxis. CARDIOLOGIC: No chest pain. No dizziness. No irregular heartbeat. No leg edema. No palpitations. No shortness of breath. HEMATOLOGIC AND LYMPH: No past transfusion. No fatigue. No loss of appetite. No easy bruising. GASTROENEROLOGIC: No change in bowel habits. No vomiting blood. No abdominal cramping. No nausea. No vomiting. No diarrhea. No constipation. No blood in stool. FEMALE REPRODUCTIVE: No dyspareunia. No pelvic pain. MUSCULOSKELETAL: No back pain. No muscle pain or weakness. No tingling/numbness. UROLOGIC: No pain with urination. No difficulty urinating. No frequent urination. NEUROLOGIC: No burning pain in feet. No trouble with coordination. No loss of consciousness. No headache. No tingling/numbness. No memory loss. PHYSICAL EXAMINATION: GENERAL: Pleasant woman. VITAL SIGNS: Stable. She is afebrile. HEENT: Normocephalic, atraumatic NECK AND THYROID: Supple. No JVD, thyromegaly, or lymphadenopathy. HEART: Normal S1, S2. Regular rate and rhythm. LUNGS: Show bilateral rhonchi with expiratory wheeze. ABDOMEN: Soft. Nontender, nondistended. Bowel sounds present. EXTREMITIES: Normal ROM. No clubbing. No edema. LABORATORY DATA: White count of 12.6, hemoglobin 10.2, hematocrit 33.4, platelet count of 55. ASSESSMENT: 1. Lung cancer, undergoing treatment. 2. Leukocytosis, reactive, though getting better. 3. Anemia of neoplastic disorder. 4. Abnormal peripheral smear. 5. Exacerbation of chronic obstructive pulmonary disease. PLAN: The patient underwent treatment for her breathing. We will keep a close watch on the counts. If they start dropping further, then intervention. In the meantime, hold on chemo for now. I had a detailed discussion with the patient about it, seemed to understand it. Ample time was given to the patient to ask me questions. [place], [place] PROGRESS NOTE NAME: DESMOND GRIFFIN UNIT #: [id number] ROOM: 529 DOCTOR: SATYA MATTSON MD BIRTHDATE: [birth year] SATYA MATTSON MD CM:PNTRANS 9 2 SATYA MATTSON MD 07/24/16952 interface
--- NOTE | ~2016-07-14 | PR ---
[place], [place] PROGRESS NOTE NAME: DESMOND GRIFFIN UNIT #: [id number] ROOM: [facility] DOCTOR: CARLI MORGAN MD BIRTHDATE: [birth year] DOS: 07/17/2016 REASON FOR FOLLOWUP: Pneumonia. SUBJECTIVE: The patient is doing somewhat better, still has significant shortness of breath, has severe dyspnea on exertion while walking in the hallway. No fever overnight. Still on steroids, plans for bronchoscopy tomorrow. Subjectively had no fever, chills, nausea, vomiting, headache, or diarrhea, just shortness of breath and occasional cough. PHYSICAL EXAMINATION: VITAL SIGNS: Showed temperature of 98.3, heart rate of 91, blood pressure 169/85, respiration rate of 16, pulse ox of 95% on 4 liters of oxygen through nasal cannula. GENERAL APPEARANCE: Awake, alert, sitting up in the chair, no distress. HEENT: Oral cavity moist and intact. NECK: Supple, no JVD, no lymphadenopathy. HEART: Regular rate and rhythm. S1, S2 normal. Distant heart sounds. LUNGS: Bilateral expiratory wheezing, right more than left. Occasional crackles, right base. ABDOMEN: Soft, obese, nontender, no distention. Bowel sounds heard. EXTREMITIES: Warm to touch. Mild edema bilateral lower extremities. LABORATORY DATA: Reviewed. WBC of 21.1, hemoglobin of 9.4, platelets were 66. Chemistry showing BUN of 41, creatinine 1.87. ASSESSMENT AND PLAN: 1. Sepsis secondary to right lower lobe pneumonia in an immunocompromised host, currently on cefepime 2 grams q. 12 hours. Plan is for bronchoscopy tomorrow, recommend obtaining BAL with Gram stain and cultures. We will follow up the results of that. Repeat chest x-ray. Wean off steroids. 2. Lung cancer, currently undergoing chemotherapy per Dr. Pinto. 3. Leukocytosis secondary to infection plus reactive secondary to Solu-Medrol, wean off steroids. 4. Chronic obstructive pulmonary disease exacerbation. Continue bronchodilators. Wean off steroids. Thank you for this consult. I will continue to follow. [place], [place] PROGRESS NOTE NAME: DESMOND GRIFFIN UNIT #: [id number] ROOM: [facility] DOCTOR: CARLI MORGAN MD BIRTHDATE: [birth year] CARLI MORGAN MD CM:EDILIA [id number] 1 CARLI MORGAN MD 07/18/16 0243 interface
[~2016-07-14 16:04] MED LIST: ALBUTEROL0.09 MG/A1 INH; ALBUTEROL2.5 MG/0.5 INH; AMLODIPINE BESY1 TAB PO; ASPIRIN325 MG PO; AUGMENTIN 875 M1 TAB PO; BD ULTRA-FINE1 EACH MC; BREO ELLIPTA 21 EACH IH; BUDEPRION XL150 MG PO; BUSPAR5 MG PO; CAPOTEN50 MG PO; COZAAR100 MG PO; COZAAR25 M1 PO; DOXYCYCLINE100 M3 PO; DULCOLAX10 M1 RC; DUONEB 3 MG/3 ML3 M1 INH; HUMALOG100 U/ML SC; HYDRODIURIL25 MG PO; INCRUSE EL62.5 MCG/A PO; JANUVIA50 MG PO; K-TAB20 MEQ PO; LASIX40 MG PO; LEVAQUIN750 M1 PO; LEVEMIR FLEX100 U/ML SC; LEVEMIR10 ML SC; LEVOFLOXACIN500 MG PO; LEVOTHYROXIN0.125 MG PO; LOVASTATIN20 MG PO; LOVASTATIN40 MG PO; MAGIC MOUTHWASH PO; MEDROL DOSEPAK4 MG PO; METFOMIN HYDRO850 MG PO; METFORMIN500 MG PO; METFORMIN850 MG PO; MOM30 M1 PO; MOTRIN800 MG PO; MUCINEX ER600 MG PO; NEURONTIN300 MG PO; NORVASC10 MG PO; NORVASC5 MG PO; NOVOLOG FLEX100 U/ML SC; OMEGA 31000 MG PO; OXYGEN NAS; PREDNISONE10 MG PO; PREDNISONE20 M1 PO; PREDNISONE50 MG PO; RIBASPHERE600 MG PO; RIBAVIRIN200 M1 PO; SALINE NOSE SPR45 ML NAS; SEA-OMEGA 50 C1 EACH PO; SPIRIVA18 MCG INH; SYNTHROID,LEV100 MCG PO; VENTOLIN H0.09 MG/AC PO; VICODIN 5-3001 EACH PO; VICODIN ES 7501 TAB PO; Ventolin 02.5 MG/3 M INH; WELLBUTRIN SR150 MG PO; WELLBUTRIN XL150 MG PO; WELLBUTRIN75 MG PO; XANAX0.5 MG PO; ZITHROMAX500 MG PO
[2016-07-14 16:08] VITALS: BP 136/63
[2016-07-14 16:42] LABS: HEMATOCRIT 33.3 % (37.0-47.0); HEMOGLOBIN 10.4 g/dl (12.0-16.0); MEAN CORPUSCULAR HGB CONC 31.2 g/dl (33.0-37.0); MEAN PLATELET VOLUME 9.1 fl (9.6-12.3); NUCLEATED RED BLOOD CELL 1.2 % (0.0-0.0); PLATELET COUNT AUTOMATED 34 10*3/uL (130-400); RED BLOOD COUNT 3.47 10*6/uL (4.10-5.10)
[2016-07-14 16:50] LABS: WHITE BLOOD COUNT 1.7 10*3/uL (4.8-10.8)
[2016-07-14 16:52] LABS: PROTHROMBIN TIME 10.1 SECONDS (9.0-12.4)
[2016-07-14 17:00] VITALS: BP 148/65
[2016-07-14 17:00] LABS: ALBUMIN 2.5 gm/dl (3.1-4.5); BILIRUBIN, TOTAL 0.3 mg/dl (0.2-1.0); C-REACTIVE PROTEIN 3.52 MG/DL (0-0.3); CKMB 1.5 ng/ml (0.5-3.6); MAGNESIUM 1.6 mg/dL (1.5-2.1); POTASSIUM 3.9 mmol/L (3.5-5.1); TOTAL PROTEIN 5.6 gm/dL (6.4-8.2); TROPONIN I 0.037 ng/ml (<0.045)
[2016-07-14 17:25] LABS: EOSINOPHILS 2 % (1-4); LYMPHOCYTE # 0.3 10*3/uL (1.3-4.4); METAMYELOCYTES 1 % (0-0); MONOCYTE # 0.1 10*3/uL (0.1-1.0); NEUTROPHIL # 1.3 10*3/uL (2.3-7.9); NEUTROPHILS 75 % (47-73); TOTAL CELLS COUNTED 100 #CELLS
[2016-07-14 17:30] LABS: PLATELET SUFFICIENCY LOW (NORMAL)
[2016-07-14 18:00] VITALS: BP 144/72
[2016-07-14 18:45] VITALS: BP 143/68
[2016-07-14 19:30] VITALS: BP 155/72
[2016-07-14 19:35] VITALS: BP 155/72
[2016-07-15] VITALS: BP 164/80
[2016-07-15 00:29] LABS: CKMB 1.5 ng/ml (0.5-3.6)
[2016-07-15 00:33] LABS: TROPONIN I 0.046 ng/ml (<0.045)
[2016-07-15 04:00] VITALS: BP 143/64
[2016-07-15 06:03] LABS: ALBUMIN 2.3 gm/dl (3.1-4.5); BILIRUBIN, TOTAL 0.2 mg/dl (0.2-1.0); MAGNESIUM 1.9 mg/dL (1.5-2.1); PHOSPHOROUS 3.7 mg/dL (2.5-4.9); POTASSIUM 4.2 mmol/L (3.5-5.1); TOTAL PROTEIN 5.7 gm/dL (6.4-8.2); TROPONIN I 0.017 ng/ml (<0.045)
[2016-07-15 06:06] LABS: HEMATOCRIT 32.4 % (37.0-47.0); MEAN CORPUSCULAR HGB CONC 30.9 g/dl (33.0-37.0)
[2016-07-15 06:08] LABS: MEAN CELL VOLUME 96.4 fl (81.0-99.0); MEAN CORPUSCULAR HGB 29.8 pg (27.0-31.0); MEAN PLATELET VOLUME 10.7 fl (9.6-12.3); NUCLEATED RED BLOOD CELL 0.3 % (0.0-0.0); PLATELET COUNT AUTOMATED 40 10*3/uL (130-400); RED BLOOD COUNT 3.36 10*6/uL (4.10-5.10); RED CELL DISTRI WIDTH 14.8 % (0-14.5)
[2016-07-15 07:02] LABS: PROTHROMBIN TIME 10.7 SECONDS (9.0-12.4)
[2016-07-15 07:20] LABS: LYMPHOCYTE # 0.1 10*3/uL (1.3-4.4); METAMYELOCYTES 1 % (0-0); MONOCYTE # 0.2 10*3/uL (0.1-1.0); NEUTROPHIL # 6.7 10*3/uL (2.3-7.9); NEUTROPHILS 95 % (47-73); PLATELET SUFFICIENCY LOW (NORMAL); TOTAL CELLS COUNTED 100 #CELLS
[2016-07-15 08:00] VITALS: BP 142/65
[2016-07-15 12:00] VITALS: BP 165/79
[2016-07-15 16:00] VITALS: BP 147/61
[2016-07-15 20:00] VITALS: BP 138/86
[2016-07-16] VITALS: BP 151/70
[2016-07-16 03:55] VITALS: BP 150/79
[2016-07-16 06:08] LABS: RED CELL DISTRI WIDTH 15.1 % (0-14.5)
[2016-07-16 06:09] LABS: ALBUMIN 2.4 gm/dl (3.1-4.5); BILIRUBIN, TOTAL 0.3 mg/dl (0.2-1.0); POTASSIUM 4.3 mmol/L (3.5-5.1); TOTAL PROTEIN 5.7 gm/dL (6.4-8.2)
[2016-07-16 06:10] LABS: HEMATOCRIT 30.3 % (37.0-47.0); HEMOGLOBIN 9.3 g/dl (12.0-16.0); MEAN CELL VOLUME 97.7 fl (81.0-99.0); MEAN CORPUSCULAR HGB CONC 30.7 g/dl (33.0-37.0); MEAN PLATELET VOLUME 10.3 fl (9.6-12.3); NUCLEATED RED BLOOD CELL 0.1 % (0.0-0.0); PLATELET COUNT AUTOMATED 41 10*3/uL (130-400); WHITE BLOOD COUNT 13.5 10*3/uL (4.8-10.8)
[2016-07-16 07:39] LABS: LYMPHOCYTE # 0.3 10*3/uL (1.3-4.4); METAMYELOCYTES 2 % (0-0); MONOCYTE # 0.4 10*3/uL (0.1-1.0); NEUTROPHIL # 12.6 10*3/uL (2.3-7.9); NEUTROPHILS 93 % (47-73); PLATELET SUFFICIENCY LOW (NORMAL); TOTAL CELLS COUNTED 100 #CELLS; TOXIC GRANULATION SLIGHT
[2016-07-16 08:00] VITALS: BP 133/60; BP 141/70
[2016-07-16 12:00] VITALS: BP 150/76
[2016-07-16 16:00] VITALS: BP 136/60
[2016-07-16 20:00] VITALS: BP 136/68
[2016-07-17] VITALS: BP 142/70
[2016-07-17 04:00] VITALS: BP 143/69
[2016-07-17 06:03] LABS: ALBUMIN 2.5 gm/dl (3.1-4.5); POTASSIUM 4.8 mmol/L (3.5-5.1)
[2016-07-17 06:04] LABS: BILIRUBIN, TOTAL 0.2 mg/dl (0.2-1.0); TOTAL PROTEIN 5.8 gm/dL (6.4-8.2)
[2016-07-17 06:17] LABS: HEMATOCRIT 30.9 % (37.0-47.0); HEMOGLOBIN 9.4 g/dl (12.0-16.0); MEAN CELL VOLUME 98.4 fl (81.0-99.0); MEAN CORPUSCULAR HGB 29.9 pg (27.0-31.0); MEAN CORPUSCULAR HGB CONC 30.4 g/dl (33.0-37.0); MEAN PLATELET VOLUME 10.7 fl (9.6-12.3); NUCLEATED RED BLOOD CELL 0.1 10*3/uL (0.0-0.0); NUCLEATED RED BLOOD CELL 0.5 % (0.0-0.0); RED BLOOD COUNT 3.14 10*6/uL (4.10-5.10); RED CELL DISTRI WIDTH 15.7 % (0-14.5); WHITE BLOOD COUNT 21.1 10*3/uL (4.8-10.8)
[2016-07-17 06:37] LABS: PLATELET COUNT AUTOMATED 66 10*3/uL (130-400)
[2016-07-17 07:15] LABS: LYMPHOCYTE # 1.1 10*3/uL (1.3-4.4); MONOCYTE # 0.8 10*3/uL (0.1-1.0); NEUTROPHIL # 19.2 10*3/uL (2.3-7.9); NEUTROPHILS 91 % (47-73); PLATELET SUFFICIENCY LOW (NORMAL); TOTAL CELLS COUNTED 100 #CELLS; TOXIC GRANULATION SLIGHT
[2016-07-17 12:00] VITALS: BP 169/85
[2016-07-17 16:00] VITALS: BP 140/74
[2016-07-17 20:00] VITALS: BP 153/89
[2016-07-18] VITALS (9 sets, daily range): BP systolic 139–184; BP diastolic 61–97
[2016-07-18 05:57] LABS: HEMOGLOBIN 9.3 g/dl (12.0-16.0); MEAN CELL VOLUME 97.1 fl (81.0-99.0); MEAN CORPUSCULAR HGB 30.1 pg (27.0-31.0); MEAN PLATELET VOLUME 10.9 fl (9.6-12.3); NUCLEATED RED BLOOD CELL 0.4 10*3/uL (0.0-0.0); NUCLEATED RED BLOOD CELL 1.2 % (0.0-0.0); RED BLOOD COUNT 3.09 10*6/uL (4.10-5.10); RED CELL DISTRI WIDTH 15.9 % (0-14.5); WHITE BLOOD COUNT 28.9 10*3/uL (4.8-10.8)
[2016-07-18 06:05] LABS: PLATELET COUNT AUTOMATED 90 10*3/uL (130-400)
[2016-07-18 06:15] LABS: ALBUMIN 2.6 gm/dl (3.1-4.5); BILIRUBIN, TOTAL 0.2 mg/dl (0.2-1.0); POTASSIUM 4.7 mmol/L (3.5-5.1); TOTAL PROTEIN 5.8 gm/dL (6.4-8.2)
[2016-07-18 06:24] LABS: LYMPHOCYTE # 1.7 10*3/uL (1.3-4.4); METAMYELOCYTES 3 % (0-0); MONOCYTE # 1.2 10*3/uL (0.1-1.0); MYELOCYTES 4 % (0-0); NEUTROPHIL # 23.7 10*3/uL (2.3-7.9); NEUTROPHILS 82 % (47-73); PLATELET SUFFICIENCY LOW (NORMAL); POLYCHROMASIA SLIGHT; PROMYELOCYTES 1 % (0-0); TOTAL CELLS COUNTED 100 #CELLS
[2016-07-19] VITALS: BP 157/69
[2016-07-19 05:57] LABS: HEMATOCRIT 30.9 % (37.0-47.0); HEMOGLOBIN 9.6 g/dl (12.0-16.0); MEAN CELL VOLUME 96.6 fl (81.0-99.0); MEAN CORPUSCULAR HGB CONC 31.1 g/dl (33.0-37.0); MEAN PLATELET VOLUME 10.5 fl (9.6-12.3); NUCLEATED RED BLOOD CELL 0.6 10*3/uL (0.0-0.0); NUCLEATED RED BLOOD CELL 2.5 % (0.0-0.0); RED CELL DISTRI WIDTH 16.2 % (0-14.5); WHITE BLOOD COUNT 22.8 10*3/uL (4.8-10.8)
[2016-07-19 06:03] LABS: PLATELET COUNT AUTOMATED 124 10*3/uL (130-400)
[2016-07-19 06:36] LABS: LYMPHOCYTE # 0.9 10*3/uL (1.3-4.4); METAMYELOCYTES 3 % (0-0); MONOCYTE # 1.1 10*3/uL (0.1-1.0); MYELOCYTES 5 % (0-0); NEUTROPHIL # 18.5 10*3/uL (2.3-7.9); NEUTROPHILS 81 % (47-73); PLATELET SUFFICIENCY LOW (NORMAL); POLYCHROMASIA SLIGHT; PROMYELOCYTES 2 % (0-0); TOTAL CELLS COUNTED 100 #CELLS; TOXIC GRANULATION SLIGHT
[2016-07-19 08:00] VITALS: BP 160/70
[2016-07-19 12:00] VITALS: BP 153/82
[2016-07-19 12:09] LABS: ACID FAST SPEC PROCESSING Concentration (.)
[2016-07-19 16:44] VITALS: BP 152/63
[2016-07-19 20:00] VITALS: BP 153/76
[2016-07-20] VITALS: BP 148/72
[2016-07-20 06:46] LABS: HEMOGLOBIN 9.2 g/dl (12.0-16.0); MEAN CELL VOLUME 95.1 fl (81.0-99.0); MEAN CORPUSCULAR HGB 30.2 pg (27.0-31.0); MEAN CORPUSCULAR HGB CONC 31.7 g/dl (33.0-37.0); MEAN PLATELET VOLUME 10.8 fl (9.6-12.3); NUCLEATED RED BLOOD CELL 0.4 10*3/uL (0.0-0.0); PLATELET COUNT AUTOMATED 133 10*3/uL (130-400); RED BLOOD COUNT 3.05 10*6/uL (4.10-5.10); RED CELL DISTRI WIDTH 16.3 % (0-14.5); WHITE BLOOD COUNT 14.4 10*3/uL (4.8-10.8)
[2016-07-20 07:04] LABS: ATYPICAL LYMPHS 1 % (0-0); LYMPHOCYTE # 1.3 10*3/uL (1.3-4.4); METAMYELOCYTES 7 % (0-0); MYELOCYTES 7 % (0-0); NEUTROPHIL # 9.8 10*3/uL (2.3-7.9); NEUTROPHILS 68 % (47-73); POTASSIUM 4.9 mmol/L (3.5-5.1); PROMYELOCYTES 2 % (0-0); TOTAL CELLS COUNTED 100 #CELLS
[2016-07-20 07:06] LABS: PLATELET SUFFICIENCY NORMAL (NORMAL); POLYCHROMASIA SLIGHT
[2016-07-20 08:00] VITALS: BP 168/83
[2016-07-20 16:00] VITALS: BP 156/72
[2016-07-20 20:00] VITALS: BP 177/83
[2016-07-21] VITALS: BP 149/81
[2016-07-21 07:06] LABS: HEMATOCRIT 29.8 % (37.0-47.0); HEMOGLOBIN 9.6 g/dl (12.0-16.0); MEAN CELL VOLUME 95.5 fl (81.0-99.0); MEAN CORPUSCULAR HGB 30.8 pg (27.0-31.0); MEAN CORPUSCULAR HGB CONC 32.2 g/dl (33.0-37.0); NUCLEATED RED BLOOD CELL 0.3 10*3/uL (0.0-0.0); NUCLEATED RED BLOOD CELL 2.3 % (0.0-0.0); PLATELET COUNT AUTOMATED 159 10*3/uL (130-400); RED BLOOD COUNT 3.12 10*6/uL (4.10-5.10); RED CELL DISTRI WIDTH 16.5 % (0-14.5)
[2016-07-21 07:26] LABS: EOSINOPHIL # 0.1 10*3/uL (0-0.4); EOSINOPHILS 1 % (1-4); LYMPHOCYTE # 0.6 10*3/uL (1.3-4.4); METAMYELOCYTES 6 % (0-0); MYELOCYTES 13 % (0-0); NEUTROPHIL # 7.3 10*3/uL (2.3-7.9); NEUTROPHILS 66 % (47-73); PLATELET SUFFICIENCY NORMAL (NORMAL); TOTAL CELLS COUNTED 100 #CELLS
[2016-07-21 07:42] LABS: POTASSIUM 4.4 mmol/L (3.5-5.1)
[2016-07-21 08:00] VITALS: BP 172/81
[2016-07-21 12:00] VITALS: BP 169/66
[2016-07-21 16:32] VITALS: BP 185/77
[2016-07-21 20:00] VITALS: BP 160/76
[2016-07-22] VITALS: BP 153/70
[2016-07-22 08:00] VITALS: BP 146/74
[2016-07-22 16:00] VITALS: BP 126/83
[2016-07-23] VITALS: BP 158/77
[2016-07-23 06:25] LABS: HEMATOCRIT 31.9 % (37.0-47.0); MEAN CELL VOLUME 96.1 fl (81.0-99.0); MEAN CORPUSCULAR HGB 30.1 pg (27.0-31.0); MEAN CORPUSCULAR HGB CONC 31.3 g/dl (33.0-37.0); MEAN PLATELET VOLUME 10.3 fl (9.6-12.3); NUCLEATED RED BLOOD CELL 0.2 10*3/uL (0.0-0.0); NUCLEATED RED BLOOD CELL 1.2 % (0.0-0.0); RED BLOOD COUNT 3.32 10*6/uL (4.10-5.10); WHITE BLOOD COUNT 12.9 10*3/uL (4.8-10.8)
[2016-07-23 06:28] LABS: ALBUMIN 2.6 gm/dl (3.1-4.5); BILIRUBIN, TOTAL 0.2 mg/dl (0.2-1.0); POTASSIUM 4.4 mmol/L (3.5-5.1); TOTAL PROTEIN 5.5 gm/dL (6.4-8.2)
[2016-07-23 06:30] LABS: PLATELET COUNT AUTOMATED 233 10*3/uL (130-400)
[2016-07-23 07:29] LABS: LYMPHOCYTE # 0.3 10*3/uL (1.3-4.4); METAMYELOCYTES 3 % (0-0); MYELOCYTES 4 % (0-0); NEUTROPHIL # 10.7 10*3/uL (2.3-7.9); NEUTROPHILS 83 % (47-73); TEAR DROP CELLS FEW; TOTAL CELLS COUNTED 100 #CELLS
[2016-07-23 07:30] LABS: PLATELET SUFFICIENCY NORMAL (NORMAL)
[2016-07-23 08:00] VITALS: BP 166/72
[2016-07-23 16:00] VITALS: BP 142/66
[2016-07-23 20:00] VITALS: BP 139/73
[2016-07-24] VITALS: BP 137/70
[2016-07-24 06:01] LABS: HEMATOCRIT 33.4 % (37.0-47.0); HEMOGLOBIN 10.2 g/dl (12.0-16.0); MEAN CELL VOLUME 97.7 fl (81.0-99.0); MEAN CORPUSCULAR HGB 29.8 pg (27.0-31.0); MEAN CORPUSCULAR HGB CONC 30.5 g/dl (33.0-37.0); MEAN PLATELET VOLUME 9.4 fl (9.6-12.3); NUCLEATED RED BLOOD CELL 0.1 10*3/uL (0.0-0.0); NUCLEATED RED BLOOD CELL 0.6 % (0.0-0.0); PLATELET COUNT AUTOMATED 255 10*3/uL (130-400); RED BLOOD COUNT 3.42 10*6/uL (4.10-5.10); RED CELL DISTRI WIDTH 17.1 % (0-14.5); WHITE BLOOD COUNT 12.6 10*3/uL (4.8-10.8)
[2016-07-24 06:39] LABS: LYMPHOCYTE # 0.8 10*3/uL (1.3-4.4); METAMYELOCYTES 3 % (0-0); MYELOCYTES 2 % (0-0); NEUTROPHIL # 11.2 10*3/uL (2.3-7.9); NEUTROPHILS 89 % (47-73); TOTAL CELLS COUNTED 100 #CELLS; TOXIC GRANULATION SLIGHT
[2016-07-24 06:40] LABS: PLATELET SUFFICIENCY NORMAL (NORMAL); TEAR DROP CELLS FEW
[2016-07-24 08:00] VITALS: BP 158/60; BP 166/87
[2016-07-24] MEDS ORDERED: PREDNISONE10 MG PO (11:20)
[2016-07-24] MEDS ORDERED: D-1000 185 MG-11 TAB PO (11:20)
[2016-07-24] MEDS ORDERED: LEVAQUIN750 M1 PO (14:59)
[2016-07-24 16:00] VITALS: BP 130/64
== END 2016-07-24 17:35 | disposition home or self-care (01) | DRG 871 ==
LOC: ED 16:04 → 5E 17:46 → EDHOLD 17:46 → ICCU 17:46 → 5E 07-18 12:52
PROVIDERS: Emergency Medicine; Hospitalist; Internal Medicine; Internal Medicine Critical Care Medicine; Internal Medicine Hematology & Oncology; Student in an Organized Health Care Education/Training Program
PROC: 0BC48ZZ Extirpation of Matter from Right Upper Lobe Bronchus, Via Natural or Artificial Opening Endoscopic (ICD-10-PCS; principal; 2016-07-18)
PROC: 0BC98ZZ Extirpation of Matter from Lingula Bronchus, Via Natural or Artificial Opening Endoscopic (ICD-10-PCS; principal; 2016-07-18)
PROC: 0BC58ZZ Extirpation of Matter from Right Middle Lobe Bronchus, Via Natural or Artificial Opening Endoscopic (ICD-10-PCS; principal; 2016-07-18)
PROC: 0BC18ZZ Extirpation of Matter from Trachea, Via Natural or Artificial Opening Endoscopic (ICD-10-PCS; principal; 2016-07-18)
PROC: 0BCB8ZZ Extirpation of Matter from Left Lower Lobe Bronchus, Via Natural or Artificial Opening Endoscopic (ICD-10-PCS; principal; 2016-07-18)
PROC: 0BC68ZZ Extirpation of Matter from Right Lower Lobe Bronchus, Via Natural or Artificial Opening Endoscopic (ICD-10-PCS; principal; 2016-07-18)
PROC: 0BC88ZZ Extirpation of Matter from Left Upper Lobe Bronchus, Via Natural or Artificial Opening Endoscopic (ICD-10-PCS; principal; 2016-07-18)
DX: A41.9 Sepsis, unspecified organism (principal); J15.9 Unspecified bacterial pneumonia; N17.0 Acute kidney failure with tubular necrosis; J96.21 Acute and chronic respiratory failure with hypoxia; I50.31 Acute diastolic (congestive) heart failure; D61.810 Antineoplastic chemotherapy induced pancytopenia; E11.22 Type 2 diabetes mellitus with diabetic chronic kidney disease; D69.6 Thrombocytopenia, unspecified; I13.0 Hypertensive heart and chronic kidney disease with heart failure and stage 1 through stage 4 chronic kidney disease, or unspecified chronic kidney disease; E44.0 Moderate protein-calorie malnutrition; C79.89 Secondary malignant neoplasm of other specified sites; J44.1 Chronic obstructive pulmonary disease with (acute) exacerbation; J44.0 Chronic obstructive pulmonary disease with (acute) lower respiratory infection; C34.90 Malignant neoplasm of unspecified part of unspecified bronchus or lung; R65.20 Severe sepsis without septic shock; N18.3 Chronic kidney disease, stage 3 (moderate); E03.9 Hypothyroidism, unspecified; D63.0 Anemia in neoplastic disease; J20.9 Acute bronchitis, unspecified; D63.8 Anemia in other chronic diseases classified elsewhere; E66.9 Obesity, unspecified; T38.0X5A Adverse effect of glucocorticoids and synthetic analogues, initial encounter; Y92.89 Other specified places as the place of occurrence of the external cause; Z68.36 Body mass index [BMI] 36.0-36.9, adult; Z79.82 Long term (current) use of aspirin; Z79.4 Long term (current) use of insulin; Z79.899 Other long term (current) drug therapy; Z99.81 Dependence on supplemental oxygen; Z90.721 Acquired absence of ovaries, unilateral; Z90.49 Acquired absence of other specified parts of digestive tract; Z98.51 Tubal ligation status; Z87.891 Personal history of nicotine dependence; Z91.041 Radiographic dye allergy status; Z88.1 Allergy status to other antibiotic agents; Z88.2 Allergy status to sulfonamides; Z88.8 Allergy status to other drugs, medicaments and biological substances; Z82.49 Family history of ischemic heart disease and other diseases of the circulatory system; Z82.5 Family history of asthma and other chronic lower respiratory diseases; Z80.0 Family history of malignant neoplasm of digestive organs

== ENCOUNTER → 2016-11-14 | Outpatient (CLI) | payer MEDICARE, OTHER ==
[~2016-11-14] MED LIST changes: +D-1000 185 MG-11 TAB PO
[2016-11-14 15:06] LABS: BASO # 0.1 10*3/uL (0.0-0.1); BASO % 0.5 % (0.0-1.0); EOS # 0.2 10*3/uL (0.0-0.4); EOS % 2.3 % (1.0-4.0); HEMATOCRIT 40.6 % (37.0-47.0); HEMOGLOBIN 12.8 g/dl (12.0-16.0); LYMPH # 1.5 10*3/uL (1.3-4.4); LYMPH % 16.1 % (27.0-41.0); MEAN CELL VOLUME 88.6 fl (81.0-99.0); MEAN CORPUSCULAR HGB 27.9 pg (27.0-31.0); MEAN CORPUSCULAR HGB CONC 31.5 g/dl (33.0-37.0); MEAN PLATELET VOLUME 9.2 fl (9.6-12.3); MONO # 0.6 10*3/uL (0.1-1.0); MONO % 6.4 % (3.0-9.0); NEUT # 6.9 10*3/uL (2.3-7.9); NEUT % 74.3 % (47.0-73.0); PLATELET COUNT AUTOMATED 246 10*3/uL (130-400); RED BLOOD COUNT 4.58 10*6/uL (4.10-5.10); RED CELL DISTRI WIDTH 13.5 % (0-14.5); WHITE BLOOD COUNT 9.2 10*3/uL (4.8-10.8)
[2016-11-14 15:36] LABS: ALBUMIN 3.2 gm/dl (3.1-4.5); BILIRUBIN, TOTAL 0.3 mg/dl (0.2-1.0); HEMOGLOBIN A1c 6.4 % (4.8-5.6); POTASSIUM 3.8 mmol/L (3.5-5.1)
[2016-11-14 15:42] LABS: THYROID STIM HORMONE (HS) 1.3 uIU/ml (0.358-4.75)
== END ==
LOC: LAB 14:48
PROVIDERS: Nurse Practitioner Family
DX: I10 Essential (primary) hypertension (principal); E11.9 Type 2 diabetes mellitus without complications; E78.4 Other hyperlipidemia

== ENCOUNTER → 2017-03-13 | Outpatient (CLI) | payer MEDICARE, OTHER ==
[2017-03-13 15:15] LABS: BILIRUBIN NEGATIVE (NEGATIVE); BLOOD NEGATIVE (NEGATIVE); CLARITY CLEAR (CLEAR); COLOR YELLOW (YELLOW); GLUCOSE NEGATIVE (NEGATIVE); KETONE NEGATIVE (NEGATIVE); LEUKO ESTERASE NEGATIVE (NEGATIVE); NITRITE NEGATIVE (NEGATIVE); PH 5.5 (5.0-9.0); SPECIFIC GRAVITY <= 1.005 (1.005-1.030); UROBILINOGEN 0.2 E.U./dl (0.2-1.0)
[2017-03-13 15:16] LABS: BASO # 0.1 10*3/uL (0.0-0.1); BASO % 0.5 % (0.0-1.0); EOS # 0.3 10*3/uL (0.0-0.4); EOS % 2.8 % (1.0-4.0); HEMATOCRIT 41.7 % (37.0-47.0); HEMOGLOBIN 13.2 g/dl (12.0-16.0); LYMPH % 18.9 % (27.0-41.0); MEAN CELL VOLUME 89.3 fl (81.0-99.0); MEAN CORPUSCULAR HGB 28.3 pg (27.0-31.0); MEAN CORPUSCULAR HGB CONC 31.7 g/dl (33.0-37.0); MEAN PLATELET VOLUME 9.9 fl (9.6-12.3); MONO # 0.7 10*3/uL (0.1-1.0); MONO % 6.4 % (3.0-9.0); NEUT # 7.4 10*3/uL (2.3-7.9); NEUT % 70.7 % (47.0-73.0); PLATELET COUNT AUTOMATED 310 10*3/uL (130-400); RED BLOOD COUNT 4.67 10*6/uL (4.10-5.10); RED CELL DISTRI WIDTH 13.1 % (0-14.5); WHITE BLOOD COUNT 10.4 10*3/uL (4.8-10.8)
[2017-03-13 15:25] LABS: BACTERIA 1+
[2017-03-13 15:30] LABS: ALBUMIN 3.5 gm/dl (3.1-4.5); CREATININE 1.58 mg/dL (0.55-1.02); POTASSIUM 4.2 mmol/L (3.5-5.1); TOTAL PROTEIN 8.4 gm/dL (6.4-8.2)
== END | disposition home or self-care (01) ==
LOC: LAB 14:37
PROVIDERS: Nurse Practitioner Family
DX: E78.4 Other hyperlipidemia (principal); E11.9 Type 2 diabetes mellitus without complications; I10 Essential (primary) hypertension

== ENCOUNTER 2017-05-19 21:15 | Inpatient (IN) | payer MEDICARE, OTHER ==
[~2017-05-19] VITALS: Ht 152.4 cm; Wt 80.5 kg
--- NOTE | ~2017-05-19 | PR ---
[place], [place] PROGRESS NOTE NAME[id number] UN[facility] #: [id number] ROOM: 518 DOCTOR: SATYA MATTSON MD BIRTHDATE: [birth year] DOS: 05/24/2017 SUBJECTIVE: The patient is doing much better. She is awake, alert, and responsive. PHYSICAL EXAMINATION: GENERAL: She is a pleasant woman, in no apparent distress. VITAL SIGNS: Stable. She is afebrile. HEENT: Normocephalic, atraumatic. NECK AND THYROID: Supple. No JVD, thyromegaly, or lymphadenopathy. HEART: Normal S1, S2. Regular rate and rhythm. LUNGS: Clear to auscultation and percussion. ABDOMEN: Soft. Nontender, nondistended. Bowel sounds present. EXTREMITIES: Normal ROM. No clubbing. No edema. LABORATORY DATA: Sodium 138, potassium 4.5, chloride 104, bicarbonate 28. White count of 13.3, hemoglobin 10.4, hematocrit 32.9, platelet count of 348. ASSESSMENT: 1. Progressive lung mass. 2. Anemia of neoplastic disorder. 3. Chronic obstructive pulmonary disease exacerbation. 4. Leukocytosis, reactive. PLAN: We will wait for her overall condition improves including breathing. She will be getting a PET scan as outpatient, we will restage her. Depending on the further intervention. I discussed with the patient in detail. SATYA MATTSON MD CM:PNTRANS [id number] SATYA MATTSON MD 05/24/17 1159 interface
--- NOTE | ~2017-05-19 | PR ---
[place], [place] PROGRESS NOTE NAME: DESMOND GRIFFIN UNIT #: [id number] ROOM: 518 DOCTOR: SATYA MATTSON MD BIRTHDATE: [birth year] DOS: 05/21/2017 SUBJECTIVE: The patient is doing better. Her breathing is better. REVIEW OF SYSTEMS HEENT: No trouble swallowing. No double vision. No loss of vision. No pain. ENT AND RESPIRATORY: No wheeze. No change in voice. No cough. No shortness of breath. No coughing up blood. No epistaxis. CARDIOLOGIC: No chest pain. No dizziness. No irregular heartbeat. No leg edema. No palpitations. No shortness of breath. HEMATOLOGIC AND LYMPH: No past transfusion. No fatigue. No loss of appetite. No easy bruising. GASTROENEROLOGIC: No change in bowel habits. No vomiting blood. No abdominal cramping. No nausea. No vomiting. No diarrhea. No constipation. No blood in stool. FEMALE REPRODUCTIVE: No dyspareunia. No pelvic pain. MUSCULOSKELETAL: No back pain. No muscle pain or weakness. No tingling/numbness. UROLOGIC: No pain with urination. No difficulty urinating. No frequent urination. NEUROLOGIC: No burning pain in feet. No trouble with coordination. No loss of consciousness. No headache. No tingling/numbness. No memory loss. PHYSICAL EXAMINATION GENERAL: She is a pleasant woman, in no apparent distress. VITAL SIGNS: Stable. She is afebrile. HEENT: Normocephalic, atraumatic NECK AND THYROID: Supple. No JVD, thyromegaly, or lymphadenopathy. HEART: Normal S1, S2. Regular rate and rhythm. LUNGS: Clear to auscultation and percussion. ABDOMEN: Soft. Nontender, nondistended. Bowel sounds present. EXTREMITIES: Normal ROM. No clubbing. No edema. LABORATORY DATA: White count of 8.6, hemoglobin 10.7, hematocrit 33.5, platelet count of 306. ASSESSMENT: 1. Progressive lung mass. 2. Anemia of neoplastic disorder. 3. Severe sepsis. 4. Leukocytosis, reactive. PLAN: Overall, she is doing better. She will be getting a PET scan as outpatient. In the meantime, continue broad spectrum antibiotics as well as treatment for her breathing. I discussed with the patient in detail. [place], [place] PROGRESS NOTE NAME: DESMOND GRIFFIN [place] UNIT #: [id number] ROOM: 518 DOCTOR: SATYA MATTSON MD BIRTHDATE: [birth year] SATYA MATTSON MD CM:EDILIA [id number] SATYA MATTSON MD 05/21/17 1738 interface
--- NOTE | ~2017-05-19 | PR ---
[place], [place] PROGRESS NOTE NAME: DESMOND GRIFFIN UNIT #: [id number] ROOM: 518 DOCTOR: SATYA MATTSON MD BIRTHDATE: [birth year] DOS: 05/25/2017 SUBJECTIVE: The patient is doing better, though she is on oxygen. She is awake, alert and responsive. PHYSICAL EXAMINATION: GENERAL: Pleasant woman in no acute distress. VITAL SIGNS: Stable, afebrile. HEENT: Normocephalic, atraumatic NECK AND THYROID: Supple. No JVD, thyromegaly, or lymphadenopathy. HEART: Normal S1, S2. Regular rate and rhythm. LUNGS: Clear to auscultation and percussion. ABDOMEN: Soft. Nontender, nondistended. Bowel sounds present. EXTREMITIES: Normal ROM. No clubbing. No edema. REVIEW OF SYSTEMS HEENT: No trouble swallowing. No double vision. No loss of vision. No pain. ENT AND RESPIRATORY: No wheeze. No change in voice. No cough. No shortness of breath. No coughing up blood. No epistaxis. CARDIOLOGIC: No chest pain. No dizziness. No irregular heartbeat. No leg edema. No palpitations. No shortness of breath. HEMATOLOGIC AND LYMPH: No past transfusion. No fatigue. No loss of appetite. No easy bruising. GASTROENEROLOGIC: No change in bowel habits. No vomiting blood. No abdominal cramping. No nausea. No vomiting. No diarrhea. No constipation. No blood in stool. FEMALE REPRODUCTIVE: No dyspareunia. No pelvic pain. MUSCULOSKELETAL: No back pain. No muscle pain or weakness. No tingling/numbness. UROLOGIC: No pain with urination. No difficulty urinating. No frequent urination. NEUROLOGIC: No burning pain in feet. No trouble with coordination. No loss of consciousness. No headache. No tingling/numbness. No memory loss. LABORATORY DATA: White count 15.5, hemoglobin 10.8, hematocrit 34.2 and platelet count of 363. ASSESSMENT: 1. Progressive lung mass. 2. Anemia of neoplastic disorder. 3. Leukocytosis, probably reactive. 4. Acute on chronic respiratory failure. PLAN: We will be scheduling her for a PET scan as outpatient. In addition, we will keep a close watch on her hemoglobin and hematocrit at this time if it starts dropping, then further intervention. I discussed this with the patient in detail. [place], [place] PROGRESS NOTE NAME: DESMOND GRIFFIN UNIT #: [id number] ROOM: 518 DOCTOR: SATYA MATTSON MD BIRTHDATE: [birth year] SATYA MATTSON MD CM:PNTRANS 1322 SATYA MATTSON MD 05/26/17 003 interface
--- NOTE | ~2017-05-19 | CON ---
[place], [place] REPORT OF CONSULTATION NAME[id number] #: [id number] ROOM: 518 DOCTOR: SATYA MATTSNO MD BIRTHDATE: [birth year] DOS: 05/20/2017 HISTORY OF PRESENT ILLNESS: The patient is a pleasant 66-year-old Euro-[place] woman, admitted with a history of lung cancer, admitted because of increasing shortness of breath over the last 2 days with yellow and green sputum. She had been also having a persistent cough and shortness of breath got worse. Subsequently, she was admitted. She had a CAT scan that showed progression of her lung mass and consulted for further evaluation and management. RADIOLOGY: Chest x-ray showed progressive mass lesion, right upper lobe. PAST MEDICAL HISTORY: Chronic kidney disease, COPD, lung cancer, diabetes mellitus, diastolic CHF, essential hypertension, hypothyroidism, and O2 dependent COPD. PAST SURGICAL HISTORY: Oophorectomy, appendectomy, dilatation and curettage and tubal ligation. SOCIAL HISTORY: Former smoker, quit 5 months ago. Denies any drug or alcohol use. FAMILY HISTORY: Mother NH at 56. Father with COPD and bladder cancer. ALLERGIES: IVP DYE, IODINE, AND BACTRIM. MEDICATIONS: Albuterol sulfate, alprazolam, Norvasc, aspirin, Wellbutrin, BuSpar, [place], Lasix, Neurontin, NovoLog insulin, Levemir, levothyroxine, oxygen, potassium chloride, and Januvia. REVIEW OF SYSTEMS: CONSTITUTIONAL: No chills. No fatigue. No fever. No loss of appetite. No night sweats. No weakness. No weight loss. HEENT: No trouble swallowing. No loss of smell. No loss of hearing. No double vision. No pain. No discharge. ENT AND RESPIRATORY: No wheeze. No sore throat. No change in voice. No hearing loss. No nose bleed. No cough. No trouble breathing through nose. No shortness of breath. No coughing up blood. No epistaxis. CARDIOVASCULAR: No chest pain. No dizziness. No irregular heartbeat. No leg edema. No pain in legs while walking. No palpitations. No shortness of breath. DERMATOLOGIC: No acne. No hives. No laceration. No mole. No rash. ENDOCRINE: No cold intolerance. No diabetes. No fatigue. No hot flashes. No polydipsia. No polyuria. No urinating frequently. No weight loss. HEMATOLOGIC AND LYMPH: No fatigue. No easy bruising. GASTROENTEROLOGIC: No change in bowel habits. No indigestion. No frequent bloating. No vomiting blood. No abdominal cramping. No nausea. No heartburn. No vomiting. No abdominal pain. No dysphagia. No diarrhea. No constipation. No blood in stool. FEMALE REPRODUCTIVE: No vaginal itching. No difficulty urinating. No heavy periods. No dyspareunia. No sexually active. No dysmenorrhea. No pelvic pain. [place], [place] REPORT OF CONSULTATION NAME: DESMOND GRIFFIN UNIT #: [id number] ROOM: [facility] DOCTOR: SATYA MATTSON MD BIRTHDATE: [birth year] No breast pain. No nipple discharge. No abnormal vaginal discharge. No hot flashes. MUSCULOSKELETAL: No back pain. No muscle pain or weakness. No neck pain. No tingling/numbness. No swelling/bruising. No osteoporosis treatment. OPTHALMOLOGIC: No double vision. No diminished vision. No loss of vision. UROLOGIC: No dysuria. No frequent nighttime urination. No irregular periods. No pain with urination. No difficulty urinating. No blood in urine. No frequent urination. No urinary incontinence. NEUROLOGIC: No loss of sensation in specific body area. No vertigo. No burning pain in feet. No trouble with balance. No trouble with coordination. No loss of consciousness. No loss of feeling/power. No confusion. No headache. No tingling/numbness. PSYCHOLOGIC: No tinnitus. No headaches. No shortness of breath. No weight decrease. No nausea. No vomiting. No abdominal discomfort. No constipation. No diarrhea. No depression. No anxiety. PHYSICAL EXAMINATION: GENERAL: Pleasant woman in no apparent distress. Short of breath. VITAL SIGNS: Stable. She is afebrile. Blood pressure 150/57, respirations 20, pulse 96, and temperature 98.2. HEENT: Oral mucosa appears intact. The external ears are normal in appearance. Nares are patent without lesions, exudates, erythema, or inflammation. Tongue is symmetrical. Uvula is midline. NECK AND THYROID: Neck supple without palpable masses. Trachea is midline. No thyromegaly. No carotid bruit or JVD. BREASTS: Normal. Nipples unremarkable. No drainage. No lumps felt on either side. HEART: Normal S1, S2, without significant murmur, rub, or gallop. LUNGS: Showed bilateral rhonchi with expiratory wheeze. ABDOMEN: No costovertebral angle tenderness. Soft. No organomegaly or masses. Nontender. No hernias present. Liver and spleen are not palpable. LYMPHATIC: No adenopathy noted in the cervical, supraclavicular, axillary, or inguinal regions. NEUROLGIC: Nonfocal. Oriented to person, place, and time. MENTAL STATUS: Appropriate for mood and affect. PERIPHERAL PULSES: No varicosities. Femoral and pedal pulses are palpable. EXTREMITIES: Without cyanosis, clubbing, or edema. No gross anomalies. LABORATORY DATA: Sodium 135, potassium 3.8, chloride 98, and bicarbonate 27. EGFR is 29. White count of 11.5, hemoglobin 11.9, hematocrit 37.1, and platelet count of 353. ASSESSMENT: 1. Progression of mass in the lung. 2. History of lung cancer. 3. Severe sepsis. 4. Respiratory failure. 5. Anemia of neoplastic disorder. 6. Leukocytosis, reactive. [place], [place] REPORT OF CONSULTATION NAME: DESMOND GRIFFIN UNIT #: [id number] ROOM: [facility] DOCTOR: SATYA MATTSON MD BIRTHDATE: [birth year] PLAN: I will wait her overall condition to improve, then we will be getting a PET scan for restaging. Depending upon that, plan will be done. In the meantime, follow the white count and hemoglobin. Ample time was given to the patient to ask me questions. We will follow. Thanks for consulting and letting me participate in the care of this interesting patient. SATYA MATTSON MD CM:CONSTR:REPORT OF CONSULTATION 1129 05/20/17 1747 interface
[2017-05-19 21:20] VITALS: BP 146/68
[2017-05-19 21:43] LABS: BASO % 0.3 % (0.0-1.0); EOS # 0.7 10*3/uL (0.0-0.4); EOS % 5.7 % (1.0-4.0); HEMATOCRIT 37.1 % (37.0-47.0); HEMOGLOBIN 11.9 g/dl (12.0-16.0); LYMPH # 1.6 10*3/uL (1.3-4.4); LYMPH % 14.2 % (27.0-41.0); MEAN CELL VOLUME 86.1 fl (81.0-99.0); MEAN CORPUSCULAR HGB 27.6 pg (27.0-31.0); MEAN CORPUSCULAR HGB CONC 32.1 g/dl (33.0-37.0); MEAN PLATELET VOLUME 9.3 fl (9.6-12.3); MONO # 0.7 10*3/uL (0.1-1.0); MONO % 5.9 % (3.0-9.0); NEUT # 8.4 10*3/uL (2.3-7.9); NEUT % 73.4 % (47.0-73.0); PLATELET COUNT AUTOMATED 353 10*3/uL (130-400); RED BLOOD COUNT 4.31 10*6/uL (4.10-5.10); RED CELL DISTRI WIDTH 13.5 % (0-14.5); WHITE BLOOD COUNT 11.5 10*3/uL (4.8-10.8)
[2017-05-19 21:54] LABS: ACT PARTIAL THROMBO TIME 27.5 SECONDS (20.8-31.5)
[2017-05-19 21:59] LABS: ALKALINE PHOSPHATASE 81 U/L (45-117); BUN 26 mg/dl (7-24); CHLORIDE 98 mmol/L (98-107); CREATININE 1.73 mg/dL (0.55-1.02); POTASSIUM 3.8 mmol/L (3.5-5.1); SGOT/AST 15 IU/L (3-35); SGPT/ALT 23 U/L (12-78); SODIUM 135 mmol/L (136-145); TOTAL PROTEIN 7.9 gm/dL (6.4-8.2)
[2017-05-19 22:05] LABS: TROPONIN I < 0.015 ng/ml (<0.045)
[2017-05-19 22:36] VITALS: BP 134/58
[2017-05-20] VITALS (7 sets, daily range): BP systolic 128–152; BP diastolic 56–80
[2017-05-20] MEDS ORDERED: LASIX20 MG PO (01:22)
[2017-05-20 04:32] LABS: BASO % 0.4 % (0.0-1.0); EOS # 0.6 10*3/uL (0.0-0.4); EOS % 6.1 % (1.0-4.0); HEMATOCRIT 33.8 % (37.0-47.0); HEMOGLOBIN 10.7 g/dl (12.0-16.0); LYMPH # 1.4 10*3/uL (1.3-4.4); LYMPH % 14.7 % (27.0-41.0); MEAN CELL VOLUME 87.3 fl (81.0-99.0); MEAN CORPUSCULAR HGB 27.6 pg (27.0-31.0); MEAN CORPUSCULAR HGB CONC 31.7 g/dl (33.0-37.0); MEAN PLATELET VOLUME 8.6 fl (9.6-12.3); MONO # 0.7 10*3/uL (0.1-1.0); MONO % 7.4 % (3.0-9.0); NEUT # 6.7 10*3/uL (2.3-7.9); NEUT % 70.6 % (47.0-73.0); PLATELET COUNT AUTOMATED 318 10*3/uL (130-400); RED BLOOD COUNT 3.87 10*6/uL (4.10-5.10); RED CELL DISTRI WIDTH 13.6 % (0-14.5); WHITE BLOOD COUNT 9.5 10*3/uL (4.8-10.8)
[2017-05-20 04:48] LABS: ALBUMIN 2.8 gm/dl (3.1-4.5); CREATININE 1.46 mg/dL (0.55-1.02); PHOSPHOROUS 3.6 mg/dL (2.5-4.9); POTASSIUM 4.1 mmol/L (3.5-5.1); TOTAL PROTEIN 7.2 gm/dL (6.4-8.2)
[2017-05-20 04:55] LABS: THYROID STIM HORMONE (HS) 0.682 uIU/ml (0.358-4.75)
[2017-05-20 09:52] LABS: VITAMIN D, 25-HYDROXY 26.7 ng/mL (30-100)
[2017-05-21 01:02] VITALS: BP 143/55
[2017-05-21 03:11] LABS: BASO % 0.2 % (0.0-1.0); EOS % 0.1 % (1.0-4.0); HEMATOCRIT 33.5 % (37.0-47.0); HEMOGLOBIN 10.7 g/dl (12.0-16.0); LYMPH # 0.6 10*3/uL (1.3-4.4); MEAN CELL VOLUME 86.8 fl (81.0-99.0); MEAN CORPUSCULAR HGB 27.7 pg (27.0-31.0); MEAN CORPUSCULAR HGB CONC 31.9 g/dl (33.0-37.0); MEAN PLATELET VOLUME 9.3 fl (9.6-12.3); MONO # 0.2 10*3/uL (0.1-1.0); MONO % 2.7 % (3.0-9.0); NEUT # 7.6 10*3/uL (2.3-7.9); NEUT % 89.2 % (47.0-73.0); PLATELET COUNT AUTOMATED 306 10*3/uL (130-400); RED BLOOD COUNT 3.86 10*6/uL (4.10-5.10); RED CELL DISTRI WIDTH 13.6 % (0-14.5); WHITE BLOOD COUNT 8.6 10*3/uL (4.8-10.8)
[2017-05-21 03:22] LABS: CREATININE 1.21 mg/dL (0.55-1.02); POTASSIUM 4.8 mmol/L (3.5-5.1)
[2017-05-21 06:56] LABS: BILIRUBIN NEGATIVE (NEGATIVE); BLOOD NEGATIVE (NEGATIVE); CLARITY CLEAR (CLEAR); COLOR YELLOW (YELLOW); GLUCOSE 3+ (NEGATIVE); KETONE NEGATIVE (NEGATIVE); LEUKO ESTERASE NEGATIVE (NEGATIVE); NITRITE NEGATIVE (NEGATIVE); PH 6.5 (5.0-9.0); SPECIFIC GRAVITY 1.015 (1.005-1.030); UROBILINOGEN 0.2 E.U./dl (0.2-1.0)
[2017-05-21 07:03] LABS: BACTERIA TRACE
[2017-05-21 08:00] VITALS: BP 141/49
[2017-05-21 12:00] VITALS: BP 144/52
[2017-05-21 20:00] VITALS: BP 133/93
[2017-05-22] VITALS: BP 147/70
[2017-05-22 07:05] LABS: HEMATOCRIT 32.3 % (37.0-47.0); HEMOGLOBIN 10.1 g/dl (12.0-16.0); MEAN CELL VOLUME 88.3 fl (81.0-99.0); MEAN CORPUSCULAR HGB 27.6 pg (27.0-31.0); MEAN CORPUSCULAR HGB CONC 31.3 g/dl (33.0-37.0); MEAN PLATELET VOLUME 9.5 fl (9.6-12.3); PLATELET COUNT AUTOMATED 340 10*3/uL (130-400); RED BLOOD COUNT 3.66 10*6/uL (4.10-5.10); RED CELL DISTRI WIDTH 13.8 % (0-14.5); WHITE BLOOD COUNT 13.9 10*3/uL (4.8-10.8)
[2017-05-22 07:17] VITALS: BP 137/54
[2017-05-22 07:36] LABS: CREATININE 1.28 mg/dL (0.55-1.02)
[2017-05-22 07:44] LABS: TOTAL CELLS COUNTED 100 #CELLS
[2017-05-22 07:45] LABS: PLATELET SUFFICIENCY NORMAL (NORMAL)
[2017-05-22 12:04] VITALS: BP 135/58
[2017-05-22 16:08] VITALS: BP 133/90
[2017-05-22 20:00] VITALS: BP 154/63
[2017-05-23] VITALS: BP 143/63; BP 89/65
[2017-05-23 06:20] LABS: HEMATOCRIT 32.9 % (37.0-47.0); HEMOGLOBIN 10.4 g/dl (12.0-16.0); MEAN CELL VOLUME 88.4 fl (81.0-99.0); MEAN CORPUSCULAR HGB CONC 31.6 g/dl (33.0-37.0); MEAN PLATELET VOLUME 9.2 fl (9.6-12.3); PLATELET COUNT AUTOMATED 348 10*3/uL (130-400); RED BLOOD COUNT 3.72 10*6/uL (4.10-5.10); WHITE BLOOD COUNT 13.3 10*3/uL (4.8-10.8)
[2017-05-23 06:33] LABS: ALBUMIN 2.8 gm/dl (3.1-4.5); CREATININE 1.3 mg/dL (0.55-1.02); POTASSIUM 4.5 mmol/L (3.5-5.1); TOTAL PROTEIN 6.8 gm/dL (6.4-8.2)
[2017-05-23 06:46] LABS: PLATELET SUFFICIENCY NORMAL (NORMAL); TOTAL CELLS COUNTED 100 #CELLS
[2017-05-23 07:54] VITALS: BP 143/62
[2017-05-23 11:55] VITALS: BP 146/64
[2017-05-23 16:03] VITALS: BP 150/62
[2017-05-23 20:00] VITALS: BP 162/72
[2017-05-24] VITALS: BP 160/70
[2017-05-24 06:01] LABS: HEMATOCRIT 34.2 % (37.0-47.0); HEMOGLOBIN 10.8 g/dl (12.0-16.0); MEAN CELL VOLUME 87.5 fl (81.0-99.0); MEAN CORPUSCULAR HGB 27.6 pg (27.0-31.0); MEAN CORPUSCULAR HGB CONC 31.6 g/dl (33.0-37.0); MEAN PLATELET VOLUME 9.3 fl (9.6-12.3); NUCLEATED RED BLOOD CELL 0.2 % (0.0-0.0); PLATELET COUNT AUTOMATED 363 10*3/uL (130-400); RED BLOOD COUNT 3.91 10*6/uL (4.10-5.10); RED CELL DISTRI WIDTH 14.1 % (0-14.5); WHITE BLOOD COUNT 15.5 10*3/uL (4.8-10.8)
[2017-05-24 06:24] LABS: CREATININE 1.28 mg/dL (0.55-1.02); POTASSIUM 4.6 mmol/L (3.5-5.1)
[2017-05-24 06:40] LABS: PLATELET SUFFICIENCY NORMAL (NORMAL); TOTAL CELLS COUNTED 100 #CELLS
[2017-05-24 08:00] VITALS: BP 156/76
[2017-05-24 12:00] VITALS: BP 162/71
[2017-05-24 16:00] VITALS: BP 158/64
[2017-05-24 19:54] VITALS: BP 159/70
[2017-05-24 23:50] VITALS: BP 173/78
[2017-05-25 07:54] LABS: HEMATOCRIT 35.6 % (37.0-47.0); HEMOGLOBIN 11.2 g/dl (12.0-16.0); MEAN CELL VOLUME 86.6 fl (81.0-99.0); MEAN CORPUSCULAR HGB 27.3 pg (27.0-31.0); MEAN CORPUSCULAR HGB CONC 31.5 g/dl (33.0-37.0); MEAN PLATELET VOLUME 9.5 fl (9.6-12.3); NUCLEATED RED BLOOD CELL 0.1 10*3/uL (0.0-0.0); NUCLEATED RED BLOOD CELL 0.7 % (0.0-0.0); PLATELET COUNT AUTOMATED 404 10*3/uL (130-400); RED BLOOD COUNT 4.11 10*6/uL (4.10-5.10); RED CELL DISTRI WIDTH 14.3 % (0-14.5); WHITE BLOOD COUNT 18.9 10*3/uL (4.8-10.8)
[2017-05-25 08:00] VITALS: BP 146/60
[2017-05-25 08:10] LABS: POTASSIUM 5.1 mmol/L (3.5-5.1)
[2017-05-25 08:13] LABS: CREATININE 1.36 mg/dL (0.55-1.02)
[2017-05-25 08:15] LABS: PLATELET SUFFICIENCY NORMAL (NORMAL); TOTAL CELLS COUNTED 100 #CELLS
[2017-05-25 12:00] VITALS: BP 150/61
[2017-05-25] MEDS ORDERED: XARE15TA PO (13:57)
[2017-05-25] MEDS ORDERED: LEVAQUIN750 M1 PO (13:58)
[2017-05-25] MEDS ORDERED: PREDNISONE10 MG PO (13:58)
[2017-05-25 16:00] VITALS: BP 160/68
== END 2017-05-25 19:02 | disposition home or self-care (01) | DRG 871 ==
LOC: ED 21:15 → 5E 23:18 → EDHOLD 23:18 → 5E 23:39
PROVIDERS: Emergency Medicine Emergency Medical Services; Family Medicine; Hospitalist; Internal Medicine
DX: A41.9 Sepsis, unspecified organism (principal); N17.0 Acute kidney failure with tubular necrosis; J96.21 Acute and chronic respiratory failure with hypoxia; I26.99 Other pulmonary embolism without acute cor pulmonale; E44.0 Moderate protein-calorie malnutrition; J18.1 Lobar pneumonia, unspecified organism; E11.22 Type 2 diabetes mellitus with diabetic chronic kidney disease; C34.91 Malignant neoplasm of unspecified part of right bronchus or lung; D63.0 Anemia in neoplastic disease; I13.0 Hypertensive heart and chronic kidney disease with heart failure and stage 1 through stage 4 chronic kidney disease, or unspecified chronic kidney disease; I50.32 Chronic diastolic (congestive) heart failure; J44.0 Chronic obstructive pulmonary disease with (acute) lower respiratory infection; J44.1 Chronic obstructive pulmonary disease with (acute) exacerbation; E87.1 Hypo-osmolality and hyponatremia; R65.20 Severe sepsis without septic shock; D63.8 Anemia in other chronic diseases classified elsewhere; N18.3 Chronic kidney disease, stage 3 (moderate); E11.65 Type 2 diabetes mellitus with hyperglycemia; E03.9 Hypothyroidism, unspecified; E66.9 Obesity, unspecified; Z68.34 Body mass index [BMI] 34.0-34.9, adult; Z99.81 Dependence on supplemental oxygen; Z92.21 Personal history of antineoplastic chemotherapy; Z90.710 Acquired absence of both cervix and uterus; Z87.891 Personal history of nicotine dependence; Z79.4 Long term (current) use of insulin; Z79.82 Long term (current) use of aspirin; Z79.899 Other long term (current) drug therapy; Z90.49 Acquired absence of other specified parts of digestive tract; Z90.721 Acquired absence of ovaries, unilateral; Z98.51 Tubal ligation status; Z88.2 Allergy status to sulfonamides; Z88.1 Allergy status to other antibiotic agents; Z88.8 Allergy status to other drugs, medicaments and biological substances; Z91.041 Radiographic dye allergy status; Z82.49 Family history of ischemic heart disease and other diseases of the circulatory system; Z80.52 Family history of malignant neoplasm of bladder; Z82.5 Family history of asthma and other chronic lower respiratory diseases

== ENCOUNTER → 2017-09-25 | Outpatient (CLI) | payer MEDICARE, OTHER ==
[~2017-09-25] MED LIST changes: +LASIX20 MG PO; +XARE15TA PO
[2017-09-25 13:37] LABS: ALBUMIN 3.8 gm/dl (3.1-4.5); CREATININE 1.45 mg/dL (0.55-1.02); POTASSIUM 4.2 mmol/L (3.5-5.1); TOTAL PROTEIN 8.3 gm/dL (6.4-8.2)
[2017-09-25 13:46] LABS: BASO # 0.1 10*3/uL (0.0-0.1); BASO % 0.5 % (0.0-1.0); EOS # 0.3 10*3/uL (0.0-0.4); EOS % 3.2 % (1.0-4.0); HEMATOCRIT 43.5 % (37.0-47.0); HEMOGLOBIN 13.5 g/dl (12.0-16.0); LYMPH # 1.9 10*3/uL (1.3-4.4); LYMPH % 17.6 % (27.0-41.0); MEAN CELL VOLUME 87.9 fl (81.0-99.0); MEAN CORPUSCULAR HGB 27.3 pg (27.0-31.0); MEAN PLATELET VOLUME 10.7 fl (9.6-12.3); MONO # 0.7 10*3/uL (0.1-1.0); MONO % 6.6 % (3.0-9.0); NEUT # 7.5 10*3/uL (2.3-7.9); NEUT % 71.5 % (47.0-73.0); PLATELET COUNT AUTOMATED 292 10*3/uL (130-400); RED BLOOD COUNT 4.95 10*6/uL (4.10-5.10); RED CELL DISTRI WIDTH 14.6 % (0-14.5); THYROID STIM HORMONE (HS) 0.163 uIU/ml (0.358-4.75); WHITE BLOOD COUNT 10.6 10*3/uL (4.8-10.8)
== END ==
LOC: LAB 11:59
PROVIDERS: Nurse Practitioner Family
DX: E78.00 Pure hypercholesterolemia, unspecified (principal); E03.9 Hypothyroidism, unspecified; E11.9 Type 2 diabetes mellitus without complications; R00.0 Tachycardia, unspecified; D64.9 Anemia, unspecified

== ENCOUNTER → 2017-10-08 | Outpatient (CLI) | payer MEDICARE, OTHER | END | disposition home or self-care (01) | LOC: RAD 15:13 | DX: Z51.81 Encounter for therapeutic drug level monitoring (principal); R05 Cough; R07.89 Other chest pain; M79.89 Other specified soft tissue disorders; R06.02 Shortness of breath; Z79.899 Other long term (current) drug therapy ==

== ENCOUNTER → 2017-12-03 | Outpatient (CLI) | payer MEDICARE, OTHER | END | disposition home or self-care (01) | LOC: LAB 14:13 | DX: E87.8 Other disorders of electrolyte and fluid balance, not elsewhere classified (principal) ==

== ENCOUNTER 2018-01-12 17:06 | Inpatient (IN) | payer MEDICARE, OTHER ==
[2018-01-12] VITALS (7 sets, daily range): BP systolic 101–146; BP diastolic 43–83
[~2018-01-12] VITALS: Ht 149.9 cm; Wt 73.9 kg
--- NOTE | ~2018-01-12 | PR ---
[place], [place] PROGRESS NOTE NAME: DESMOND GRIFFIN UNIT #: [id number] ROOM: 428 DOCTOR: ANTHONY SARAVIA DO BIRTHDATE: [birth year] DOS: 01/21/2018 SUBJECTIVE: The patient was seen and examined while she was sitting in her chair near the bedside. She denies fevers, chest pain, nausea, vomiting, abdominal pain or any changes to her bowel or bladder habits. She does admit to continuing intolerance to the cold as well as her continuing cough, productive for pink sputum. The patient feels that her breathing status is stable. OBJECTIVE: VITAL SIGNS: Showed temperature at 97.5 degrees Fahrenheit, heart rate at 68, respiratory rate at 20, blood pressure at 122/70, pulse oximetry at 93% on 5 liters via nasal cannula. GENERAL APPEARANCE: The patient was alert, awake, responsive, cooperative and in no acute distress. HEENT: Head was normocephalic and atraumatic. No lesions or ulcerations were noted to the eyes. NECK: Trachea appeared midline. CARDIOVASCULAR: Positive S1 and S2 sounds were heard. Regular rate and rhythm were noted. No murmurs, rubs or gallops were appreciated. Both lower extremities were without edema. PULMONARY: Decreased breath sounds were auscultated. No rhonchi, rales or wheezing were heard. ABDOMEN: Soft, nondistended and nontender to palpation. Bowel sounds were auscultated. EXTREMITIES: Bilateral lower extremities were without edema. No clubbing, cyanosis or erythema was present. LABORATORY DATA: Most recent CBC from 01/19/2018 showed white count at 16.9, hemoglobin at 11.4, hematocrit at 37.6, platelets at 248. Most recent chemistries from 01/19/2018 showed sodium at 139, potassium at 4.5, chloride at 103, bicarbonate at 30, BUN at 33, creatinine at 1.38, glucose at 146, calcium at 7.7, total bilirubin at 0.2, AST at 10, ALT at 23, alkaline phosphatase at 46, albumin at 2.5. Serologies for urine legionella antigen and strep pneumo urinary antigen were both negative. MICROBIOLOGY: Preliminary cultures from the removal of the patient's MediPort are negative thus far. Blood cultures drawn on 01/19/2018 show no bacterial growth thus far as well. Prior blood cultures from 01/16/2018 as well as earlier starting on 01/12/2018 were positive for growth of Staphylococcus epidermidis. IMPRESSION: 1. Acute exacerbation of chronic obstructive pulmonary disease. 2. Staphylococcus epidermidis bacteremia. 3. Chronic hypoxic respiratory failure. 4. Squamous cell lung cancer. 5. Obesity. PLAN OF MANAGEMENT: The patient remains stable on Solu-Medrol 40 mg daily, Mucinex, and bronchodilator therapy. Infectious disease is following the [place], [place] PROGRESS NOTE NAME: DESMOND GRIFFIN UNIT #: [id number] ROOM: [facility] DOCTOR: ANTHONY SARAVIA DO BIRTHDATE: [birth year] patient for her bacteremia and the patient is on Teflaro. Pulmonary Medicine will continue to follow along. Anthony Saravia DO ANGEL YOU MD CM:PNTRANS 1136 1218 ANTHONY SARAVIA DO 01/21/18 1257 interface
--- NOTE | ~2018-01-12 | PR ---
[place], [place] PROGRESS NOTE NAME: DESMOND GRIFFIN UNIT #: [id number] ROOM: 428 DOCTOR: AVELINO ORTIZ MD,ANGEL BIRTHDATE: [birth year] DOS: 01/22/2018 SUBJECTIVE: The patient has been seen and examined in [id number] encounter, history was confirmed. Physical examination performed. All the labs were personally reviewed. Assessment for this patient today's note was personally completed and management recommendations were made. Note done by the medical recruiter approved. The patient has been noted comfortable at this time, resting, sitting on the chair, reduction of cough reported symptoms of chest pain, coughing or symptoms of chest pain or acute shortness of breath. PHYSICAL EXAMINATION: VITAL SIGNS: Reviewed for the patient noted as normal. Pulse ox saturation maintained as 93% on 5 liters nasal canula. LUNGS: Noted decreased breath sounds on the patient without any wheezing. ABDOMEN: Soft, nontender and obese. EXTREMITIES: Noted without any acute edema. LABORATORY DATA: CBC, WBC count of 14.9. The blood culture from 01/19/2018 showed no bacterial growth. IMPRESSION: 1. Resolving epidermidis bacteremia, status post removal of the MediPort as the source of the bacteremia likelihood. 2. The patient with a history of lung cancer. 3. Respiratory failure with acute exacerbation of chronic obstructive pulmonary disease, all stable. PLAN OF MANAGEMENT: Continuation of the current plan of management, antibiotics, bronchodilators, corticosteroids and other therapies previously without any changes. ANGEL YOU MD CM:PNTRANS 1105 1408 ANGEL ORTIZ MD 01/22/18 1406 interface
--- NOTE | ~2018-01-12 | PR ---
[place], [place] PROGRESS NOTE NAME: DESMOND GRIFFIN UNIT #: [id number] ROOM: 428 DOCTOR: ANGEL PRETTY MD BIRTHDATE: [birth year] DOS: 01/18/2018 SUBJECTIVE: The patient was noted without any acute distress at this time. She has been noted comfortable at this time, resting on the bed. The patient was not noted any symptoms of chest pain or other symptom. Continue intravenous antibiotics. OBJECTIVE: VITAL SIGNS: Normal temperature, respiratory rate 22, heart rate 80, blood pressure 130/50. Pulse oxygen saturation of the patient was noted 5 liters nasal cannula 94% saturation. HEENT: Moderate obesity. Head was atraumatic. Eyes nonicterus. NECK: Supple. CARDIOVASCULAR: S1, S2 audible. LUNGS: Mild scattered expiratory wheezing with decreased breath sounds of the right lung. ABDOMEN: Soft, nontender. Bowel sounds present. EXTREMITIES: No edema. LABORATORY DATA: CBC today: WBC count 16.8, hemoglobin 11.7, platelet count were normal. One out of two blood culture sets which were done on the does not show any bacterial growth. The blood culture 01/15/2018, patient noted with Staphylococcus epidermidis. IMPRESSION: 1. The patient Staphylococcus epidermidis bacteremia and acute history of known lung cancer, which has been treated at the present time. Previously treated with traditional chemotherapy. 2. Resolving acute exacerbation of chronic obstructive pulmonary disease and bronchitis. PLAN OF THERAPY: No changes in the plan of care for patient at this time. Continue the patient's current therapy, plan of management and care. [place], [place] PROGRESS NOTE NAME: DESMOND GRIFFIN UNIT #: [id number] ROOM: [facility] DOCTOR: ANGEL PRETTY MD BIRTHDATE: [birth year] ANGEL YOU MD CM:PNTRANS [id number] ANGEL ORTIZ MD 01/18/18 3084 interface
--- NOTE | ~2018-01-12 | PR ---
[place], [place] PROGRESS NOTE NAME: DESMOND GRIFFIN UNIT #: [id number] ROOM: 428 DOCTOR: ANTHONY SARAVIA DO BIRTHDATE: [birth year] DOS: 01/20/2018 SUBJECTIVE: The patient was seen and examined at the bedside. The patient denies fevers, chills, chest pain, nausea, abdominal pain or changes in bowel or bladder habits. She again states that her breathing remains stable and she is having occasional cough productive for pink sputum. OBJECTIVE: VITAL SIGNS: Temperature at 98.2 degrees Fahrenheit, heart rate at 74, respiratory rate at 20. Blood pressure at 132/64, pulse oximetry at 94% on 5 liters via nasal cannula. GENERAL APPEARANCE: The patient was arousable, responsive, cooperative and in no acute distress. HEENT: Head was normocephalic and atraumatic. No lesions or ulcerations were noted to the eyes. NECK: Trachea appeared midline. CARDIOVASCULAR: Positive S1 and S2 sounds were heard. Regular rate and rhythm were noted. No murmurs, rubs or gallops were appreciated. Both lower extremities were without edema. PULMONARY: Decreased breath sounds were auscultated. Occasional rhonchi were heard. ABDOMEN: Soft, nondistended and nontender to palpation. Bowel sounds were auscultated. EXTREMITIES: Bilateral lower extremities were without edema. No clubbing, cyanosis or erythema was present. LABORATORY DATA: Most recent CBC from yesterday 01/19/2018 show white count at 16.9, hemoglobin at 11.4, hematocrit at 37.6 and platelets at 248. Most recent chemistries from 01/19/2018 shows sodium at 139, potassium at 4.5, chloride at 103, bicarbonate at 30, BUN at 33, creatinine at 1.38, glucose at 146, calcium at 7.7, total bilirubin at 0.2, AST at 10, ALT at 23, alkaline phosphatase at 46, albumin at 2.5. In terms of microbiology, blood cultures are still pending for the culture drawn on 01/19/2018. Final cultures from the MediPort, which was removed on 01/18/2018 are still pending. Prior blood cultures from 01/12/2018, 01/13/2018 01/15/2018 and 01/16/2018 showed growth of Staphylococcus epidermidis. IMPRESSION: 1. Acute exacerbation of chronic obstructive pulmonary disease, improving. 2. Staphylococcus epidermidis bacteremia. 3. Lung cancer. 4. Obesity. PLAN OF MANAGEMENT: Pulmonary Medicine continues to follow along. The patient remains on Solu-Medrol 40 mg daily, bronchodilator therapy and guaifenesin. In addition, the Infectious Disease Service is continuing to follow the patient for her bacteremia and they recommend IV ceftaroline for a total of 7 days after her line removal. [place], [place] PROGRESS NOTE NAME: DESMOND GRIFFIN UNIT #: [id number] ROOM: [facility] DOCTOR: ANTHONY SARAVIA DO BIRTHDATE: [birth year] Anthony Saravia DO ANGEL YOU MD CM:PNTRANS [id number] ANTHONY SARAVIA DO 01/20/18 1347 interface
--- NOTE | ~2018-01-12 | PR ---
[place], [place] PROGRESS NOTE NAME: DESMOND GRIFFIN UNIT #: [id number] ROOM: 428 DOCTOR: AVELINO ORTIZ MD,ANGEL BIRTHDATE: [birth year] DOS: 01/19/2018 PULMONARY ADDENDUM NOTE SUBJECTIVE: The patient was independently seen and examined, [id number]-[id number] encounter, history was confirmed. Medical records of the patient were reviewed personally. The note done by the medical language specialist was approved. The patient's assessment and management personally completed. The MediPort was removed yesterday successfully, sent for cultures. The patient has been getting intravenous antibiotic for Staph epidermidis bacteremia. PHYSICAL EXAMINATION: VITAL SIGNS: Normal temperature, respiratory rate 20, heart rate 73, blood pressure 130/64. Pulse oxygen saturation 5 liters canula 92% saturation. LUNGS: Moderate decreased breath sounds, scattered expiratory wheezing. ABDOMEN: Soft and obese. EXTREMITIES: No acute edema. IMPRESSION: Persistent cough, acute exacerbation of chronic obstructive pulmonary disease, retained secretion of the airway, overwhelming bacteremia, Staph epidermidis related to the Mediport, which was extracted yesterday. PLAN OF MANAGEMENT. Continue occupational therapy. Antibiotics, bronchodilators and the medical treatment for acute exacerbation of chronic obstructive pulmonary disease without any changes. Continue conservative therapy. ANGEL YOU MD CM:PNTRANS [id number] ANGEL ORTIZ MD 01/19/18 1324 interface
--- NOTE | ~2018-01-12 | PR ---
[place], [place] PROGRESS NOTE NAME: DESMOND GRIFFIN UNIT #: [id number] ROOM: 411 DOCTOR: ANTHONY SARAVIA DO BIRTHDATE: [birth year] DOS: 01/15/2018 SUBJECTIVE: The patient was seen and examined. She was noted to be sitting up in her chair at the bedside. The patient still admits to experiencing occasional cough productive for pink sputum. She does admit to some wheezing, but overall feels that her breathing is stable compared to yesterday. She denies fevers, chills, chest pain, nausea, abdominal pain or any changes in bowel or bladder habits. She does complain of some swelling to her lower extremities. OBJECTIVE: VITAL SIGNS: Show temperature at 97.8 degrees Fahrenheit, heart rate at 78, respiratory rate at 20, blood pressure at 136/65 and pulse oximetry at 93% on 5 liters via nasal cannula. GENERAL APPEARANCE: The patient was awake, alert, responsive, cooperative and in no acute distress. HEENT: The head was normocephalic and atraumatic. No lesions or ulcerations were noted to the eyes. NECK: The trachea appeared to be midline. CARDIOVASCULAR: Regular rate and rhythm were noted. No murmurs, rubs or gallops were appreciated. Positive S1 and S2 sounds were heard. Both lower extremities were with trace edema. PULMONARY: Wheezing and rhonchi were appreciated on examination. ABDOMEN: The abdomen was soft, nondistended and nontender to palpation. Bowel sounds were auscultated. EXTREMITIES: The bilateral lower extremities were with trace edema. No clubbing, cyanosis or erythema was present. LABORATORY DATA: CBC from today shows white count at 14.3, hemoglobin at 10.8, hematocrit at 35.7, platelet count at 297. Chemistries from today shows sodium at 139, potassium at 4.7, chloride at 107, bicarbonate at 27, BUN at 32, creatinine at 1.18, glucose at 230 and calcium at 7.9. MICROBIOLOGY: The patient's initial blood cultures from 01/12/2018 were positive in all 4 bottles and showed growth of Staphylococcus epidermidis was noted sensitivities. The patient's repeat set of blood culture drawn on 01/13/2018 were similarly positive in all 4 bottles with preliminary growth of gram-positive cocci in pairs and clusters. Another set of blood cultures were obtained today, 01/15/2018. Sputum culture is also pending and urinary Legionella antigen and strep pneumo urinary antigen studies as well. IMPRESSION: 1. Acute exacerbation of chronic obstructive pulmonary disease with gradual improvement. 2. Staphylococcus epidermidis bacteremia. 3. Metastatic lung cancer, recently started on immunotherapy with Opdivo. 4. Leukocytosis. 5. Normocytic anemia. 6. Hyperglycemia. 7. Insulin-dependent diabetes. [place], [place] PROGRESS NOTE NAME: DESMOND GRIFFIN UNIT #: [id number] ROOM: [facility] DOCTOR: ANTHONY SARAVIA DO BIRTHDATE: [birth year] 8. Diastolic heart failure. 9. Essential hypertension. 10. Hypothyroidism. 11. Pulmonary embolism. 12. Anxiety. 13. Depression. 14. Hyperlipidemia. 15. Obesity. PLAN OF MANAGEMENT: The patient is improving symptomatically. She remains on IV Solu-Medrol 40 mg b.i.d., guaifenesin, bronchodilator therapy. Sputum cultures showed growth of normal laila. In terms of the patient's bacteremia, we are pending repeat blood cultures. The initial blood cultures showed growth of Staphylococcus epidermidis that is sensitive to the vancomycin that the patient is currently on. There may need for removal of the patient's MediPort. Infectious Disease recommendations are pending. Anthony Saravia DO ANGEL YOU MD CM:PNTRANS 1125 1200 ANTHONY SARAVIA DO 01/15/18 1158 interface
--- NOTE | ~2018-01-12 | PR ---
[place], [place] PROGRESS NOTE NAME: [id number] UNIT #: [id number] ROOM: 428 DOCTOR: ANTHONY SARAVIA DO BIRTHDATE: [birth year] DOS: 01/19/2018 SUBJECTIVE: The patient was seen and examined in her chair at the bedside. She states that she is feeling subjectively cold at times, but denies any fevers. She denies any chest pain, any nausea, abdominal pain or changes in bowel or bladder function. She is still experiencing some shortness of breath and coughing productive for pink sputum yesterday, she underwent surgery per the General Surgery Service and her MediPort was successfully removed. OBJECTIVE: VITAL SIGNS: Show temperature at 98.0, heart rate at 73, respiratory rate at 20, blood pressure at 130/64, pulse oximetry at 90% on 5 liters via nasal cannula. LABORATORY DATA: CBC obtained today, white count is 16.9, hemoglobin is 11.4, hematocrit is 37.6, platelets are at 248. Chemistries obtained today shows sodium at 139, potassium at 4.5, chloride at 103, bicarbonate at 30, BUN at 33, creatinine at 1.38, glucose at 146, calcium at 7.7 with the corrected calcium at 8.9, total bilirubin at 0.2, AST at 10, ALT at 23, alkaline phosphatase at 46 and albumin at 2.5. Urine Legionella antigen and strep pneumo urinary antigen are both noted to be negative for microbiology. It is noted that prior blood culture showed growth for Staphylococcus epidermidis. Cultures, status post patient's removal of MediPort yesterday on 01/18/2018 are still pending as are repeat blood cultures drawn this morning. IMPRESSION: 1. Exacerbation of chronic obstructive pulmonary disease and this is improving. 2. Staphylococcus epidermidis bacteremia. 3. Lung cancer. 4. Leukocytosis. 5. Normocytic anemia. 6. Hyperglycemia. 7. Obesity. PLAN OF MANAGEMENT: The patient remains on Solu-Medrol 40 mg daily as well as bronchodilator therapy and guaifenesin. From a pulmonary standpoint, no changes will be made. Currently, Infectious Disease is following the patient for her bacteremia as she is currently on IV ceftaroline and the patient successfully underwent removal of her MediPort per the General Surgery Service yesterday. Repeat cultures are pending. Anthony Saravia DO [place], [place] PROGRESS NOTE NAME: DESMOND GRIFFIN UNIT #: [id number] ROOM: [facility] DOCTOR: ANTHONY SARAVIA DO BIRTHDATE: [birth year] ANGEL YOU MD CM:PNVIVIANE [phone] ANHTONY SARAVIA DO 01/19/18 1125 interface
--- NOTE | ~2018-01-12 | PR ---
[place], [place] PROGRESS NOTE NAME: DESMOND GRIFFIN UNIT #: [id number] ROOM: 411 DOCTOR: ANGEL PRETTY MD BIRTHDATE: [birth year] DOS: 01/13/2018 PULMONARY ADDENDUM NOTE SUBJECTIVE: The patient was seen and examined in [id number] encounter. History was confirmed. Physical examination performed. The labs were reviewed. Assessment and management recommendation patient personally made for today's visit. Note done by the vice president medical affairs, was approved. The patient noted comfortable at this time without any acute distress, resting comfortably on the bed. She does have some wheezing with nonproductive cough. The patient has been noted blood culture was isolated Staph epidermidis, sensitive to vancomycin received by the patient. OBJECTIVE: VITAL SIGNS: Normal temperature, respiratory rate 20, heart rate 76, blood pressure 136/65 to 130/89. Pulse oxygen saturation on 5 liters canula 90-93% saturation. HEENT: Head was atraumatic. Eyes nonicterus. NECK: Supple. CARDIOVASCULAR: S1, S2 is audible. LUNGS: Noted with wheezing which are noted mild at this time. There were no crackles. ABDOMEN: Soft and nontender. EXTREMITIES: No new changes. LABORATORY DATA: Blood culture from the 01/12/2018 was noted as gram-positive cocci bacteremia, Staph epidermidis. The repeat culture on 01/13/2018 shows similar organisms. CBC today: WBC count 14.3, hemoglobin 10.8, platelet count was normal. IMPRESSION: 1. Overwhelming bacteremia. The patient most likely infected MediPort likely the cause. 2. History of known metastatic cancer of the lung, which is currently treated with first treatment with Opdivo, previous chemotherapy management. 3. Acute exacerbation of chronic obstructive pulmonary disease, which is improving. PLAN OF TREATMENT: Await for the Infectious Disease Services consultation and recommendations. The patient will be continued in the meantime, vancomycin and other therapies as previously with continued use of Solu-Medrol. [place], [place] PROGRESS NOTE NAME: DESMOND GRIFFIN UNIT #: [id number] ROOM: 411 DOCTOR: ANGEL PRETTY MD BIRTHDATE: [birth year] ANGEL YOU MD CM:PNTRANS 1120 1303 ANGEL ORTIZ MD 01/15/18 1301 interface
--- NOTE | ~2018-01-12 | PR ---
[place], [place] PROGRESS NOTE NAME: [facility]: [id number] UNIT #: [id number] ROOM: 411 DOCTOR: ANTHONY SARAVIA DO BIRTHDATE: [birth year] DOS: 01/14/2018 SUBJECTIVE: The patient was seen and examined at the bedside. She denies fevers, chills, chest pain, nausea or any abdominal pain currently. She does admit to wheezing as well as a cough productive for pink sputum. She feels improved in terms of her breathing status today. OBJECTIVE: VITAL SIGNS: Show temperature at 98.8 degrees Fahrenheit, heart rate at 71, respiratory rate at 18, blood pressure at 120/55 and pulse oximetry at 95% on 6 liters nasal cannula. GENERAL APPEARANCE: The patient was awake, alert, responsive, cooperative and in no acute distress. HEENT: Head was normocephalic and atraumatic. No lesions or ulcerations were noted to the eyes. NECK: The trachea appeared midline. CARDIOVASCULAR: Regular rate and rhythm were noted. No murmurs, gallops or rubs were appreciated. Both lower extremities were without edema. PULMONARY: Wheezing and rhonchi were both auscultated throughout the lungs. ABDOMEN: Soft, it was nontender to palpation and bowel sounds were auscultated. The abdomen was nondistended. EXTREMITIES: The bilateral lower extremities were without edema, clubbing, cyanosis or erythema. LABORATORY DATA: Today's CBC shows white count at 14.2, hemoglobin at 11.8, hematocrit at 37.8, platelets at 247. Today's chemistry shows sodium at 139, potassium at 4.6, chloride at 106, bicarbonate at 28, BUN at 29, creatinine at 1.26, glucose at 334, calcium at 8.0. It was noted that blood cultures obtained on admission returned positive for growth of gram-positive cocci in pairs and clusters in all 4 bottles and repeat blood cultures are pending. In addition, sputum culture with Gram stain is also pending. IMPRESSION: 1. Acute exacerbation of chronic obstructive pulmonary disease. 2. Acute on chronic hypoxic respiratory failure. 3. Acute kidney injury superimposed on chronic kidney disease stage 3. 4. History of metastatic lung cancer, recently started on immunotherapy with Opdivo. 5. Insulin-dependent diabetes. 6. Diastolic heart failure. 7. Essential hypertension. 8. Hypothyroidism. 9. Pulmonary embolism. 10. Anxiety. 11. Depression. 12. Obesity. 13. Hyperlipidemia. 14. Gram-positive cocci in pairs and clusters, pending repeat blood cultures, now on vancomycin and with a consult to Infectious Disease. [place], [place] PROGRESS NOTE NAME: DESMOND GRIFFIN UNIT #: [id number] ROOM: 411 DOCTOR: ANTHONY SARAVIA DO BIRTHDATE: [birth year] PLAN OF MANAGEMENT: From a pulmonary standpoint, it is advised that the patient's current treatment be continued. She is responding to current use of IV azithromycin, IV Rocephin, IV Solu-Medrol 40 mg every 8 hours, bronchodilator therapy and Mucinex. Infectious Disease is now following and vancomycin has been added to the patient's antibiotic regimen due to her positive blood cultures. The patient's renal function is improving. We will await results of the sputum culture and it is advisable that the patient's oxygen saturation be maintained at 92% or greater. Anthony Saravia DO ANGEL YOU MD CM:PNTRANS 1219 1315 ANTHONY SARAVIA DO 01/14/18 1313 interface
--- NOTE | ~2018-01-12 | PR ---
[place], [place] PROGRESS NOTE NAME: DESMOND GRIFFIN UNIT #: [id number] ROOM: 428 DOCTOR: ANTHONY SARAVIA DO BIRTHDATE: [birth year] DOS: 01/22/2018 SUBJECTIVE: The patient was seen and examined while she was in her chair near the bedside. She denies fevers, chills, chest pain, nausea, vomiting, abdominal pain or any changes in bowel or bladder habits. She continues to experience coughing productive for pink sputum. OBJECTIVE: VITAL SIGNS: Show temperature at 97.8 degrees Fahrenheit, heart rate at 88, respiratory rate at 20, blood pressure at 130/60, pulse oximetry at 88% on 5 liters nasal cannula. GENERAL APPEARANCE: The patient was awake, alert, responsive, cooperative and in no acute distress. HEENT: Head was normocephalic and atraumatic. No lesions or ulcerations were noted to eyes. NECK: Trachea appeared midline. CARDIOVASCULAR: Positive S1 and S2 sounds were heard. Regular rate and rhythm were noted. No murmurs, rubs or gallops were appreciated. Both lower extremities were without edema. PULMONARY: Decreased breath sounds were heard. Occasional rales were also auscultated. ABDOMEN: Soft, nondistended and nontender to palpation. Bowel sounds were auscultated. EXTREMITIES: Bilateral lower extremities were without edema. No clubbing, cyanosis or erythema was present. LABORATORY DATA: CBC from today shows white count at 14.9, hemoglobin at 11.2, hematocrit at 36.1, platelets at 239. Chemistries from today show creatinine at 1.25. MICROBIOLOGY: Blood cultures obtained on 01/19/2018 show no growth for bacteria. Cultures obtained on 01/18/2018 following removal of the patient's MediPort and also do not show any growth at this time. IMPRESSION: 1. Acute exacerbation of chronic obstructive pulmonary disease, this is resolving. 2. Staphylococcus epidermidis bacteremia. 3. Chronic hypoxic respiratory failure. 4. Lung cancer, squamous cell type. 5. Obesity. PLAN OF MANAGEMENT: The patient remains on IV Solu-Medrol 40 mg daily, Mucinex, and bronchodilator therapy. Infectious Disease Service continues to follow the patient for her bacteremia and she remains on IV Teflaro. Pulmonary Medicine will continue to follow along. [place], [place] PROGRESS NOTE NAME: DESMOND GRIFFIN [place] UNIT #: [id number] ROOM: [facility] DOCTOR: ANTHONY SARAVIA DO BIRTHDATE: [birth year] Anthony Saravia DO ANGEL YOU MD CM:EDILIA [id number] 1151 ANTHONY SARAVIA DO 01/22/18 1148 interface
--- NOTE | ~2018-01-12 | PR ---
[place], [place] PROGRESS NOTE NAME: DESMOND GRIFFIN UNIT #: [id number] ROOM: 428 DOCTOR: AVELINO ORTIZ MD,ANGEL BIRTHDATE: [birth year] DOS: 01/20/2018 SUBJECTIVE: The patient independently seen and examined, [id number] encounter, history was confirmed. Physical exam performed. Labs were reviewed. Assessment and management was completed. Note done by the medical biller coder, was approved. The patient has been noted comfortable at this time, resting in the bed, but not noted any acute new symptoms except the cough has been noted intermittent and symptoms of shortness of breath at rest. MediPort was already removed yesterday. PHYSICAL EXAMINATION: VITAL SIGNS: Normal temperature, respiratory rate 20, heart rate 74, blood pressure 132/64. LUNGS: Noted moderate decreased breath sounds, scattered wheezing, no crackles. ABDOMEN: Soft, nontender, obese. EXTREMITIES: No new changes. IMPRESSION: 1. Bacteremia with Staphylococcus epidermidis, removal of the MediPort. 2. Acute exacerbation of chronic obstructive pulmonary disease with nonproductive cough. 3. The patient with chronic hypoxic respiratory failure as well. 4. History of recurrent lung cancer. The patient with metastatic cancer, squamous cell cancer. PLAN OF MANAGEMENT: No changes in the plan of care at this time. Continue the patient's current therapy as in progress. Usual care. Supportive plan of management and care. ANGEL YOU MD CM:PNTRANS 1250 1333 ANGEL ORTIZ MD 01/20/18 1331 interface
--- NOTE | ~2018-01-12 | PR ---
[place], [place] PROGRESS NOTE NAME: DESMOND GRIFFIN UNIT #: [id number] ROOM: 428 DOCTOR: ANGEL PRETTY MD BIRTHDATE: [birth year] DOS: 01/17/2018 SUBJECTIVE: The patient was noted comfortable at this time, resting on the bed. Not noted with any ongoing acute complaints at this time. The patient denies symptoms of nausea, vomiting. The cough has been noted [id number] with small amount of sputum expectoration at times. OBJECTIVE: VITAL SIGNS: Temperature noted normal, respiratory rate 18, heart rate 88, blood pressure 152/61. Pulse oxygen saturation 5 liters 91% saturation. HEENT: Examination shows chronic obesity. NECK: Supple. CARDIOVASCULAR: S1, S2 audible. LUNGS: The patient noted mild scattered expiratory wheezing, no crackles. ABDOMEN: Soft, nontender. Bowel sounds present. EXTREMITIES: No new acute edema. LABORATORY DATA: One out of the 2 sets for this patient of the blood culture was noted positive for gram-positive cocci in clusters, pending identification sensitivities from the 01/15/2018. CBC of the patient this morning, WBC count 17.6, hemoglobin and hematocrit normal, platelet count normal. BMP: BUN 32, creatinine 1.20. Chest x-ray of patient shows persistent mass lesion in the right upper lung. IMPRESSION: The patient who has been currently known with metastatic cancer, squamous cell, treated with the currently treated with ____ Currently treated for acute exacerbation of COPD, also noted bacteremic. The patient most likely related to the MediPort for this patient Staphylococcus epidermidis. PLAN OF MANAGEMENT: No changes in the plan of care for the patient at this time. Continue antibiotic. Recommendation bacteremia, infectious disease specialist. Other supportive therapy, plan of management and care plan with additional treatment changes will be made based on progression of her illness. Solu-Medrol has been already changed to 40 mg daily. [place], [place] PROGRESS NOTE NAME: DESMOND GRIFFIN UNIT #: [id number] ROOM: 428 DOCTOR: ANGEL PRETTY MD BIRTHDATE: [birth year] ANGEL YOU MD CM:PNTRANS 1249 1628 ANGEL ROTIZ MD 01/17/18 1626 interface
--- NOTE | ~2018-01-12 | PR ---
[place], [place] PROGRESS NOTE [id number] UNIT #: [id number] ROOM: 428 DOCTOR: AVELINO ORTIZ MDANGEL BIRTHDATE: [birth year] DOS: 01/14/2018 SUBJECTIVE: She has been noted with gradual reduction of cough. Shortness of breath for the patient was still noted with exertion, but not at rest at this time. She does have symptoms of wheezing at times intermittently. Denies symptoms of chest pain or hemoptysis. Denies symptoms of abdominal pain, nausea, vomiting, or diarrhea. Mild edema of the lower extremities were reported. Remaining systems reviewed. They were noted all negative. The blood cultures of the patient, which were taken on admission of 07/29 blood cultures noted positive for gram-positive cocci in clusters. Remaining systems reviewed. They were noted all negative. OBJECTIVE: VITAL SIGNS: For the patient, temperature noted as normal in the last 24 hours, respiratory rate 18-20, heart rate 74-86, blood pressure 126/53 to 137/62. Pulse ox saturation on 5 L nasal cannula 92% saturation. HEENT: Examination shows head was atraumatic. Eyes nonicterus. NECK: Supple. Chronic obesity. CARDIOVASCULAR: S1, S2 audible. LUNGS: The patient was noted without any crackles. The wheezing was noted mild to moderate. ABDOMEN: Soft, nontender. Bowel sounds are present. EXTREMITIES: Show chronic obesity. SKIN: Visible skin, no lesions or rashes. CENTRAL NERVOUS SYSTEM: Nonfocal. LABORATORY DATA: BMP today: BUN 29, creatinine 1.26, glucose 334. The CBC of the patient this morning, WBC count 14.2, hemoglobin 11.8, platelet count normal. Culture of the sputum Gram stain from yesterday, many white blood cells, few epithelial cells, few gram-positive cocci in pairs, few gram-positive bacilli, pending culture results. The blood culture 4/4 sets were noted positive gram-positive cocci bacteremia. IMPRESSION: 1. The bacteremia, most likely would be considered related to the MediPort. 2. The patient with area of consolidation and a mass-like lesion noted in the right mid lung as well. 3. Advanced lung cancer, noted metastatic. The patient with squamous cell cancer, which has been currently started treatment with Opdivo. 4. The patient with acute exacerbation of chronic obstructive pulmonary disease that has been gradually resolving. PLAN OF MANAGEMENT: The patient has been started on vancomycin that will be continued. Infectious Disease consultation has been already ordered by the primary care attending. The MediPort most likely need to be removed. Continuation of other plan of therapy. The dose of Solu-Medrol will be gradually decreased because the improvement in wheezing. Follow up the cultures of the blood for this patient and the sputum. Other additional changes in the treatment recommended based on the progression of the illness. Based on the current culture results of the patient, the Rocephin and the Zithromax will be [place], [place] PROGRESS NOTE NAME: DESMOND GRIFFIN UNIT #: [id number] ROOM: [facility] DOCTOR: AVELINO ORTIZ MD,ANGEL BIRTHDATE: [birth year] discontinued. The patient was independently seen and examined, [id number] encounter. History was performed. Labs were reviewed. The assessment and management was personally completed for today's visit. Note done by the medical review coordinator was approved as well. ANGEL YOU MD CM:PNTRANS [id number] ANGEL ORTIZ MD 02/11/18 0900 interface
--- NOTE | ~2018-01-12 | CON ---
[place], [place] REPORT OF CONSULTATION NAME: DESMOND GRIFFIN UNIT #: [id number] ROOM: 428 DOCTOR: ANGEL PRETTY MD BIRTHDATE: [birth year] DOS: 01/13/2018 PULMONARY ADDENDUM NOTE SUBJECTIVE: The patient was independently seen and examined for today's encounter. History was confirmed. Physical examination performed. All the labs were reviewed. Assessment and management today's note were personally completed for today's visit as well note done by the medical office receptionist assistant, was approved. HISTORY OF PRESENT ILLNESS: This is a 67-year-old white female patient with known history of advanced COPD with chronic severe hypoxic respiratory failure with history of known metastatic lung cancer, squamous cell cancer over the past few years. The patient has been treated in the office last week with the corticosteroids, bronchodilators, and other treatment and has been treated by another physician prior to that with antibiotics and corticosteroids. The patient has outpatient sputum culture performed, which was noted no bacterial growth, came in for office visit followup, noted with progressive severe hypoxia as well as a persistent respiratory symptoms and no response to the treatment and failed outpatient treatment. She was sent to the Emergency Room for further assessment. The patient was seen in the Emergency Room and was admitted to the hospital because of the failed treatment for acute exacerbation of COPD as an outpatient. She has been started on corticosteroids, antibiotics and bronchodilators and other medical management. She has been reporting reduction of the respiratory symptoms of shortness of breath, chest congestion and gurgling sensation, which has been reported in the chest and was not able to expectorate sputum previously. REVIEW OF SYSTEMS: CONSTITUTIONAL SYMPTOMS: Fatigue and tiredness noted without any symptoms of fever or chills. EYES: Denies any burning, redness, or tenderness. EARS, NOSE, THROAT SYMPTOMS: Denies sore throat, hoarseness, otalgia drainage, and epistaxis. CARDIOVASCULAR SYSTEM: Denies anginal pain, edema, and pain of the lower extremities. GASTROINTESTINAL: Denies dysphagia, nausea, vomiting, diarrhea, abdominal pain, hematemesis, melena, hematochezia, or abnormal weight loss recently. GENITOURINARY SYMPTOMS: No dysuria, suprapubic pain, hematuria. MUSCULOSKELETAL SYMPTOMS: No acute joint pain, redness, or tenderness. SKIN: Denies abnormal lesions or rashes. CENTRAL NERVOUS SYSTEM: Denies dizziness, headache, diplopia, syncopal episodes. MUSCULOSKELETAL SYMPTOMS: There were no acute joint pain. Remaining systems were reviewed, they were noted all negative. PAST MEDICAL HISTORY: 1. Known history of end-stage COPD. 2. Chronic hypoxic respiratory failure, use of oxygen supplementation up to 5 [place], [place] REPORT OF CONSULTATION NAME: DESMOND GRIFFIN UNIT #: [id number] ROOM: [facility] DOCTOR: SHANELL PRETTY MDM BIRTHDATE: [birth year] liters nasal cannula as well. 3. History of known metastatic adenocarcinoma of the lung that had been diagnosed for the past few years, treated previously with chemotherapy and currently started on Opdivo, first dose was given on Thursday of this week. 4. Chronic hypoxic respiratory failure, use of oxygen supplementation 4-5 liters nasal cannula. 5. Type 2 diabetes mellitus. 6. Recurrent anemia requiring blood transfusions. 7. Hypothyroidism. 8. Anxiety disorder. 9. Essential hypertension. PAST SURGICAL HISTORY: 1. Tubal ligation. 2. Cystocele, rectocele repair. 3. Therapeutic bronchoscopy, last one done in June 2016. 4. CT-guided needle aspiration biopsy of right upper lung pulmonary nodule diagnosed squamous cell established previously. 5. MediPort insertion. SOCIAL HISTORY: The patient is , has 2 children, lives at home. Denies history of alcohol use or illicit drug use. Tobacco use noted since teenager, 1.5 pack of cigarettes per day and currently not smoking any cigarettes. Denies history of alcohol use or illicit drugs. FAMILY HISTORY: The patient's father with complication of COPD. Mother complication of myocardial infarction, one other brother with complication advanced emphysema and other sister has been noted history of rheumatoid arthritis and bronchial asthma. MEDICATIONS: The current medications administered today were noted as use of Xarelto, amlodipine, levothyroxine, Wellbutrin, aspirin, simvastatin, gabapentin, Solu-Medrol 40 mg every 8 hours, DuoNeb every 4 hours, BuSpar, Rocephin, Xanax, Zithromax, and other p.r.n. medication for different symptoms. DRUG ALLERGY HISTORY: THE PATIENT WAS NOTED ALLERGY TO: 1. IVP DYE. 2. BACTRIM. PHYSICAL EXAMINATION: GENERAL: A 67-year-old female patient who has been currently noted awake and alert at this time of assessment without any acute distress. Height of 4 feet 11 inches, weight of 163 pounds. Sitting on the side of the bed. VITAL SIGNS: Shows normal temperature. The respiratory rate recorded as 18-20, heart rate of 98-96, blood pressure 123/52-140/58. The pulse oxygen saturation was noted as 92% saturation on 5 liters nasal cannula and this morning, previous noted 6 liters canula Emergency Room only 74% saturation, in my office pulse ox saturation recorded on 5 liter nasal cannula about 89%. HEAD, EYES, EARS, NOSE, AND THROAT: Examination shows head was atraumatic. Eyes nonicterus. [place], [place] REPORT OF CONSULTATION NAME: DESMOND GRIFFIN UNIT #: [id number] ROOM: [facility] DOCTOR: SHANELL PRETTY MDM BIRTHDATE: [birth year] NECK: Supple. CARDIOVASCULAR SYSTEM: S1, S2 was audible. LUNGS: Noted with diffuse reduction of the breath sounds with expiratory wheezing which were noted partially decreased from previously. There were no crackles. ABDOMEN: Soft, nontender. Bowel sounds present. EXTREMITIES: Noted without any acute edema, clubbing or cyanosis. MUSCULOSKELETAL: Noted without any acute deformities. VISIBLE SKIN: No lesions or rashes. LABORATORY AND DIAGNOSTIC DATA: Culture from 01/10/2018 was noted no bacterial growth, normal laila. CMP that was done yesterday in the Emergency Room, BUN 27, creatinine 2.07, glucose 168. Remaining CMP was normal. The arterial blood gas 50% Venturi mask, pH of 7.39, pCO2 of 49, pO2 of 61.9. Lactic acid 0.9 yesterday as well. CBC yesterday, WBC count of 13.3, hemoglobin and hematocrit normal, platelet count were normal. CMP of the patient that was done this morning, noted BUN 32, creatinine 1.79. Glucose of 422. PT/PTT done this morning was normal. CBC this morning was noted as WBC count normal. Platelet count was normal. Chest x-ray that was done 1 view in the Emergency Room noted bilateral pulmonary nodular opacities noted in the lungs without any acute superimposed cross pulmonary infiltration or consolidation areas. IMPRESSION: 1. The patient who had been currently admitted to the hospital noted with failed outpatient treatment for acute exacerbation of COPD with severe acute on chronic hypoxic respiratory failure as well. 2. History of known metastatic lung cancer previously chemotherapy, recently started on immunologic treatment, the first dose received on Thursday. 3. History of type 2 diabetes mellitus, noted uncontrolled hyperglycemia use of corticosteroids. 4. Chronic [id number] obesity. 5. History of general anxiety disorder and other problems. PLAN OF THERAPY: The patient has responded to the treatment current dose of corticosteroids that will be continued at least for the next 24 hours with adequate monitoring and management the medication to improve the hyperglycemia. Repeat sputum, Gram stain culture was ordered as well. Titrate oxygen supplementation, maintain pulse ox saturation 92% or greater. Use of the BiPAP in case of worsening of respiratory status. The patient does not have any side effects related to the Opdivo from the pulmonary standpoint at this time. Monitoring to be continued. Continue DVT prophylaxis in the form of Xarelto, which could be used to chronic anticoagulant for this patient. Other additional treatment changes will be ordered based on the progression of the illness. Antibiotic essentially remains the same based on the previous sputum culture, as Rocephin and Zithromax. [place], [place] REPORT OF CONSULTATION NAME: GRIFFINDESMOND UNIT #: [id number] ROOM: [facility] DOCTOR: ANGEL PRETTY MD BIRTHDATE: [birth year] ANGEL YOU MD CM:CONSTR:REPORT OF CONSULTATION 1018 02/10/18 1713 interface
--- NOTE | ~2018-01-12 | CON ---
[place], [place] REPORT OF CON[facility]ULTATION [id number] UN[facility] #: [id number] ROOM: 411 DOCTOR: ANTHONY SARAVIA DO BIRTHDATE: [birth year] DOS: 01/12/2018 REQUESTING PHYSICIAN: Hospitalist Service. REASON FOR CONSULTATION: Evaluation of shortness of breath. HISTORY OF PRESENT ILLNESS: The patient is a 67-year-old female who presented to the ED due to shortness of breath. She reports a history of squamous cell carcinoma of the lung, recently diagnosed within the past few months as well as a more longstanding history of what she reportedly says as another non-small cell lung cancer of the lung for which she has been treated for 3 years. She follows with oncologist, Dr. Del Toro and says 2 days ago, received chemotherapy for her squamous cell carcinoma and she was started on nivolumab, trade name is Opdivo and that was the first time she had received Opdivo and she says afterwards, she has been experiencing chills, coughing and shortness of breath along with wheezing. She says that normally at home, she uses 4.5 liters supplemental oxygen continuously and her pulse ox usually ranges between 85-90%. The patient presented to the office of her test desk trouble locator, Dr. You yesterday due to her continuing shortness of breath despite use of breathing treatments at home and she was advised to present to hospital for possible inpatient treatment. In the ED, it was noted that the patient's pulse oximetry was 74% on 6 liters nasal cannula and a Venturi mask was applied at that time. A chest x-ray obtained in the ED showed a right upper lobe opacity that was similar to another film on 10/08/2017. She was diagnosed with an acute exacerbation of COPD and was admitted to the medical floor for further care. The Pulmonary Medicine Service was consulted for further treatment of her shortness of breath. PAST MEDICAL HISTORY: List includes COPD, chronic kidney disease that appears to be stage 3, insulin-dependent diabetes, diastolic heart failure, essential hypertension, hypothyroidism, dependence on supplemental oxygen, pulmonary embolism, obesity, lung cancer which includes squamous cell carcinoma as well as reportedly another form of a non-small cell lung cancer. Bladder cancer. PAST SURGICAL HISTORY: Includes a history of an appendectomy, a history of a tubal ligation, a history of a dilatation and curettage, a history of an oophorectomy. SOCIAL HISTORY: The patient denies use of any illicit drugs. She consumes alcohol socially and she is a former smoker. She quit in 2016 and reportedly had a history of extensive tobacco abuse. FAMILY HISTORY: The patient's mother passed from a myocardial infarction at age 56. The patient's father from COPD. ALLERGIES: Include allergy to BACTRIM, TO IODINE WELL IVP DYE. CURRENT MEDICATIONS: These include IV Solu-Medrol 40 mg every 8 hours, IV Rocephin 1 gram every day, IV azithromycin 500 mg on a daily basis, DuoNeb treatments every 4 hours scheduled, sliding scale insulin, Xanax 0.5 mg every 6 hours as needed for anxiety, BuSpar 5 mg every 12 hours, gabapentin 300 mg every [place], [place] REPORT OF CONSULTATION NAME: DESMOND GRIFFIN UNIT #: [id number] ROOM: 411 DOCTOR: ANTHONY SARAVIA DO BIRTHDATE: [birth year] 12 hours, simvastatin 40 mg at bedtime, Lantus 15 units at bedtime a daily, aspirin 81 mg at bedtime, Xarelto 20 mg daily, amlodipine 5 mg on a daily basis, extended-release Wellbutrin 50 mg daily and lastly Synthroid 125 mcg on a daily basis. REVIEW OF SYSTEMS: GENERAL: The patient reported chills. She denied fevers. HEENT: She denied changes to vision; changes to hearing; pain to her eyes, ears or any difficulty swallowing. CARDIOVASCULAR: The patient denied chest pain, palpitations, or diaphoresis. RESPIRATORY: The patient admitted to shortness of breath, dyspnea on exertion and wheezing. The patient also admits to an occasional cough productive for pink sputum. ABDOMINAL: The patient denies nausea, vomiting, diarrhea, any melena or hematochezia. GENITOURINARY: The patient denies dysuria, hematuria, or any increased urinary frequency or urgency. NEUROLOGICAL: The patient denies lightheadedness or dizziness. PSYCHOLOGICAL: The patient admits to depression. She also admits to increased episodes of crying. She denies substance abuse. ENDOCRINE: She admits to cold intolerance, but denies heat intolerance. SKIN: She denies any new rashes, ulcers, or lesions. PHYSICAL EXAMINATION: VITAL SIGNS: These include temperature at 97.8 degrees Fahrenheit, heart rate at 98, respiratory rate at 24, blood pressure at 140/58 and pulse oximetry was 88% on 5.5 liters via nasal cannula. GENERAL APPEARANCE: The patient was awake, alert, responsive and cooperative. HEENT: The head was normocephalic and atraumatic. There were no lesions or ulcerations noted to the eyes. NECK: The trachea appeared to be midline. CARDIOVASCULAR: Regular rate and rhythm was noted on exam. No murmurs, gallops or rubs were appreciated. Both lower extremities were noted to be without edema. PULMONARY: The lungs were noted to be with diminished breath sounds bilaterally with trace expiratory wheezing. ABDOMEN: The abdomen was soft, it was nontender to palpation. Bowel sounds were auscultated and the abdomen was nondistended. EXTREMITIES: The bilateral lower extremities were without edema and there was no clubbing, cyanosis or erythema noted. NEUROLOGIC: The patient was grossly without any focal neurological deficits and cranial nerves 2-12 were grossly intact. PSYCHOLOGIC: The patient was with a normal affect and she was a fair historian. SKIN: The skin was warm and dry without any ulcerations, indurations or erythema. LABORATORY STUDIES: CBC from today shows a white count at 8.1, the hemoglobin at 11.7, the hematocrit at 37.7 and the platelet count at 256. Coagulation studies obtained today show PT at 11.3, the INR at 1.0 and the activated PTT at 29.5. Arterial blood gases obtained yesterday 01/12 showed the pH at 7.393, the [place], [place] REPORT OF CONSULTATION NAME: DESMOND GRIFFIN UNIT #: [id number] ROOM: [facility] DOCTOR: ANTHONY SARAVIA DO BIRTHDATE: [birth year] pCO2 at 43.9, the pO2 at 61.9, the bicarbonate at 26.1. Chemistries from today show sodium at 136, potassium at 4.4, chloride at 102, bicarbonate at 28, BUN at 32, creatinine at 1.79, glucose at 422. Hemoglobin A1c is 7.0, calcium is 7.6, phosphorus is 3.7, magnesium is 2.2, total bilirubin is 0.2, AST is below 3, ALT is 15, alkaline phosphatase is 55. Albumin was 2.9. IMAGING STUDIES: Chest x-ray obtained on 01/12/2018 shows no acute process or change from a prior study on 10/08/2017 and a right upper lobe opacity seen at that time was redemonstrated on yesterday's imaging study. IMPRESSION: 1. Severe sepsis secondary to pneumonitis. 2. Acute on chronic respiratory failure with hypoxia. 3. Acute exacerbation of chronic obstructive pulmonary disease. 4. Acute renal failure on top of chronic kidney disease, stage 3. 5. Insulin-dependent diabetes. 6. Diastolic heart failure. 7. Essential hypertension. 8. Hypothyroidism. 9. Lung cancer with a history of squamous cell carcinoma and reportedly another non-small cell lung cancer. 10. Pulmonary embolism. 11. Anxiety. 12. Depression. 13. Moderate protein-calorie malnutrition. 14. Obesity. 15. Hyperlipidemia. PLAN OF MANAGEMENT: For this patient's acute exacerbation of COPD, she is currently on IV Solu-Medrol 40 mg q. 8 hours as well as DuoNeb treatments every 4 hours. The patient is on azithromycin and Rocephin and we are pending blood cultures and sputum cultures. The recommendation is to continue with current medical therapy for this patient's pulmonary issues. Her renal function did improve with administration of intravenous fluids. She is on Xarelto for treatment of her history of a pulmonary embolism. Pulmonary medicine will continue to follow along with you. Anthony Saravia DO [place], [place] REPORT OF CONSULTATION NAME: DESMOND GRIFFIN UNIT #: [id number] ROOM: 411 DOCTOR: ANTHONY SARAVIA DO BIRTHDATE: [birth year] ANGEL YOU MD CM:CONSTR:REPORT OF CONSULTATION 1347 01/13/18 1549 interface
--- NOTE | ~2018-01-12 | PR ---
[place], [place] PROGRESS NOTE NAME: DESMOND GRIFFIN UNIT #: [id number] ROOM: 428 DOCTOR: ANGEL PRETTY MD BIRTHDATE: [birth year] DOS: 01/21/2018 PULMONARY ADDENDUM NOTE SUBJECTIVE: The patient was independently seen and examined in [id number] encounter. History was taken. Physical examination was performed and labs reviewed. Assessment and management personally completed. Note done by the senior medical technologist, was approved. The patient had been doing well at this time, comfortably resting, sitting on the chair, noted intermittent nonproductive cough with symptoms of chest pain, receiving intravenous vancomycin at the present time. The bronchodilators and other medical management continued. OBJECTIVE: VITAL SIGNS: Normal temperature, respiratory rate 19, heart rate 64, blood pressure 154/60. The pulse ox saturation on 5 liters nasal cannula 95% saturation. HEENT: Chronic obesity. Head was atraumatic. Eyes nonicterus. NECK: Supple. CARDIOVASCULAR: S1, S2 is audible. LUNGS: The patient was noted without any wheeze or crackles. Moderate decreased breath sounds bilaterally. ABDOMEN: Soft, nontender. EXTREMITIES: Without acute edema. IMPRESSION: 1. Staphylococcus epidermidis bacteremia, most likely MediPort related. The MediPort already removed. The bacteremia seemed to be resolving. Follow up cultures, which are pending. So far no positive culture reported, taken on the 01/19/2018 2. Resolving acute exacerbation of bronchial asthma progressively. 3. Stable chronic hypoxic respiratory failure. 4. History of right lung cancer in the right upper lobe. PLAN OF MANAGEMENT: No changes from the pulmonary standpoint. Continue current dose of corticosteroids upon discharge, tapering dose of prednisone. Continue antibiotic per recommendation of the Infectious Disease specialist. Usual care. [place], [place] PROGRESS NOTE NAME: DESMOND GRIFFIN UNIT #: [id number] ROOM: 428 DOCTOR: ANGEL PRETTY MD BIRTHDATE: [birth year] ANGEL YOU MD CM:PNTRANS [id number] ANGEL ORTIZ MD 02/02/18 0757 interface
--- NOTE | ~2018-01-12 | PR ---
[place], [place] PROGRESS NOTE NAME: DESMOND GRIFFIN UNIT #: [id number] ROOM: 411 DOCTOR: AVELINO ORTIZ MD,ANGEL BIRTHDATE: [birth year] DOS: 01/16/2018 SUBJECTIVE: The patient noted comfortable at this time, resting in the bed without any acute distress. Denies symptoms of chest pain or hemoptysis. No symptoms of nausea, vomiting. Coughing other symptoms have been gradually subsiding. Continue intravenous vancomycin for Staphylococcus epidermidis overwhelming bacteremia. OBJECTIVE: VITAL SIGNS: Normal temperature, respiratory rate 18, heart rate 96, blood pressure 143/66. The pulse oxygen saturation 5 liters 95% saturation. HEAD, EYES, EARS, NOSE, AND THROAT: No acute change. NECK: Supple. CARDIOVASCULAR SYSTEM: S1, S2 audible. LUNGS: Noted with improvement in the wheezing. There were no crackles. ABDOMEN: Soft, nontender. Bowel sounds present. EXTREMITIES: Without any acute edema. LABORATORY DATA: Sputum was noted normal growth of yeast. Blood culture 24 this month repeat was still noted Gram-positive cocci bacteremia. IMPRESSION: 1. Persistent bacteremia, Staph epidermidis, treated with antibiotics and vancomycin based on sensitivity results. 2. Resolving acute exacerbation of chronic obstructive pulmonary disease. 3. History of known metastatic lung cancer. PLAN OF MANAGEMENT: No changes in the plan of care at this time. Continue the patient's current therapy as in progress. Follow the recommendation medical management, bacteremia. Continue gradual reduce the Solu-Medrol. Other plan of therapy care to be continued as previously. Solu-Medrol dose will be decreased today to 40 mg daily dose. ANGEL YOU MD CM:PNTRANS [id number] ANGEL ORTIZ MD 01/16/181805 interface
[~2018-01-12 17:06] MED LIST changes: -LEVOTHYROXIN0.125 MG PO; +SYNTHROID,LEV125 MCG PO
[2018-01-12 17:27] LABS: BASO % 0.2 % (0.0-1.0); EOS # 0.4 10*3/uL (0.0-0.4); EOS % 2.8 % (1.0-4.0); HEMATOCRIT 42.1 % (37.0-47.0); HEMOGLOBIN 13.2 g/dl (12.0-16.0); LYMPH # 1.2 10*3/uL (1.3-4.4); LYMPH % 8.9 % (27.0-41.0); MEAN CELL VOLUME 85.9 fl (81.0-99.0); MEAN CORPUSCULAR HGB 26.9 pg (27.0-31.0); MEAN CORPUSCULAR HGB CONC 31.4 g/dl (33.0-37.0); MEAN PLATELET VOLUME 9.6 fl (9.6-12.3); MONO # 0.8 10*3/uL (0.1-1.0); MONO % 5.7 % (3.0-9.0); NEUT # 10.9 10*3/uL (2.3-7.9); NEUT % 81.9 % (47.0-73.0); PLATELET COUNT AUTOMATED 283 10*3/uL (130-400); WHITE BLOOD COUNT 13.3 10*3/uL (4.8-10.8)
[2018-01-12 17:41] LABS: ALBUMIN 3.3 gm/dl (3.1-4.5); CREATININE 2.07 mg/dL (0.55-1.02); POTASSIUM 4.1 mmol/L (3.5-5.1); TOTAL PROTEIN 7.4 gm/dL (6.4-8.2)
[2018-01-12] MEDS ORDERED: ASPIRIN LITE C325 MG PO (19:25)
[2018-01-12 20:14] LABS: ABG BASE EXCESS 1.5 mmol/L (-2.0-2.0); ABG HCO3 26.1 mmol/l (22-26); ABG O2 SATURATION 91.9 % (95-97); ARTERIAL BLOOD GAS PCO2 43.9 mmHg (35-45); ARTERIAL BLOOD GAS PH 7.393 (7.35-7.45); ARTERIAL BLOOD GAS PO2 61.9 mmHg (80-90)
[2018-01-12] MEDS ORDERED: XARE20MG PO (21:03)
[2018-01-13] VITALS: BP 123/52
[2018-01-13 06:37] LABS: HEMATOCRIT 37.7 % (37.0-47.0); HEMOGLOBIN 11.7 g/dl (12.0-16.0); MEAN CELL VOLUME 87.1 fl (81.0-99.0); PLATELET COUNT AUTOMATED 256 10*3/uL (130-400); RED BLOOD COUNT 4.33 10*6/uL (4.10-5.10); RED CELL DISTRI WIDTH 14.7 % (0-14.5); WHITE BLOOD COUNT 8.1 10*3/uL (4.8-10.8)
[2018-01-13 06:49] LABS: ALBUMIN 2.9 gm/dl (3.1-4.5); BUN 32 mg/dl (7-24); CHLORIDE 102 mmol/L (98-107); POTASSIUM 4.4 mmol/L (3.5-5.1); SODIUM 136 mmol/L (136-145)
[2018-01-13 06:52] LABS: ALKALINE PHOSPHATASE 55 U/L (45-117); CREATININE 1.79 mg/dL (0.55-1.02); PHOSPHOROUS 3.7 mg/dL (2.5-4.9); SGPT/ALT 15 U/L (12-78); TOTAL PROTEIN 6.5 gm/dL (6.4-8.2)
[2018-01-13 07:03] LABS: ACT PARTIAL THROMBO TIME 29.5 SECONDS (20.8-31.5)
[2018-01-13 07:06] LABS: SGOT/AST < 3 IU/L (3-35)
[2018-01-13 07:45] LABS: TOTAL CELLS COUNTED 100 #CELLS
[2018-01-13 07:46] LABS: PLATELET SUFFICIENCY NORMAL (NORMAL)
[2018-01-13 08:00] VITALS: BP 120/55; BP 140/58
[2018-01-13 12:00] VITALS: BP 137/62; BP 138/50
[2018-01-13 16:00] VITALS: BP 122/67; BP 137/56
[2018-01-13 20:00] VITALS: BP 131/60; BP 150/98
[2018-01-14] VITALS: BP 126/53
[2018-01-14 06:04] LABS: BASO % 0.1 % (0.0-1.0); HEMATOCRIT 37.8 % (37.0-47.0); HEMOGLOBIN 11.8 g/dl (12.0-16.0); LYMPH # 0.9 10*3/uL (1.3-4.4); LYMPH % 6.3 % (27.0-41.0); MEAN CELL VOLUME 87.9 fl (81.0-99.0); MEAN CORPUSCULAR HGB 27.4 pg (27.0-31.0); MEAN CORPUSCULAR HGB CONC 31.2 g/dl (33.0-37.0); MEAN PLATELET VOLUME 9.7 fl (9.6-12.3); MONO # 0.4 10*3/uL (0.1-1.0); MONO % 2.8 % (3.0-9.0); NEUT # 12.7 10*3/uL (2.3-7.9); NEUT % 89.7 % (47.0-73.0); PLATELET COUNT AUTOMATED 247 10*3/uL (130-400); RED CELL DISTRI WIDTH 14.9 % (0-14.5); WHITE BLOOD COUNT 14.2 10*3/uL (4.8-10.8)
[2018-01-14 06:28] LABS: CREATININE 1.26 mg/dL (0.55-1.02); POTASSIUM 4.6 mmol/L (3.5-5.1)
[2018-01-14 08:00] VITALS: BP 120/55
[2018-01-14 12:00] VITALS: BP 137/62
[2018-01-14 16:00] VITALS: BP 122/67
[2018-01-14 20:00] VITALS: BP 148/65
[2018-01-15] MEDS ORDERED: OPDIVO (00:05)
[2018-01-15] MEDS ORDERED: OPDIVO40 MG/4 ML IV (00:06)
[2018-01-15 00:41] VITALS: BP 130/89
[2018-01-15 06:04] LABS: BASO % 0.2 % (0.0-1.0); EOS % 0.1 % (1.0-4.0); HEMATOCRIT 35.7 % (37.0-47.0); HEMOGLOBIN 10.8 g/dl (12.0-16.0); LYMPH # 1.5 10*3/uL (1.3-4.4); LYMPH % 10.2 % (27.0-41.0); MEAN CELL VOLUME 88.4 fl (81.0-99.0); MEAN CORPUSCULAR HGB 26.7 pg (27.0-31.0); MEAN CORPUSCULAR HGB CONC 30.3 g/dl (33.0-37.0); MONO # 0.7 10*3/uL (0.1-1.0); MONO % 4.9 % (3.0-9.0); NEUT # 11.8 10*3/uL (2.3-7.9); NEUT % 83.1 % (47.0-73.0); PLATELET COUNT AUTOMATED 297 10*3/uL (130-400); RED BLOOD COUNT 4.04 10*6/uL (4.10-5.10); RED CELL DISTRI WIDTH 15.1 % (0-14.5); WHITE BLOOD COUNT 14.3 10*3/uL (4.8-10.8)
[2018-01-15 06:20] LABS: CREATININE 1.18 mg/dL (0.55-1.02); POTASSIUM 4.7 mmol/L (3.5-5.1)
[2018-01-15 08:00] VITALS: BP 136/65
[2018-01-15 12:00] VITALS: BP 137/58
[2018-01-15 16:00] VITALS: BP 130/50
[2018-01-15 20:00] VITALS: BP 152/59
[2018-01-16] VITALS: BP 138/50
[2018-01-16 05:26] LABS: HEMATOCRIT 37.6 % (37.0-47.0); HEMOGLOBIN 11.6 g/dl (12.0-16.0); MEAN CELL VOLUME 88.3 fl (81.0-99.0); MEAN CORPUSCULAR HGB 27.2 pg (27.0-31.0); MEAN CORPUSCULAR HGB CONC 30.9 g/dl (33.0-37.0); MEAN PLATELET VOLUME 9.5 fl (9.6-12.3); NUCLEATED RED BLOOD CELL 0.1 % (0.0-0.0); PLATELET COUNT AUTOMATED 300 10*3/uL (130-400); RED BLOOD COUNT 4.26 10*6/uL (4.10-5.10); RED CELL DISTRI WIDTH 15.4 % (0-14.5); WHITE BLOOD COUNT 15.7 10*3/uL (4.8-10.8)
[2018-01-16 05:56] LABS: ALBUMIN 2.9 gm/dl (3.1-4.5); ALKALINE PHOSPHATASE 52 U/L (45-117); BUN 33 mg/dl (7-24); CHLORIDE 107 mmol/L (98-107); CREATININE 1.09 mg/dL (0.55-1.02); PHOSPHOROUS 3.3 mg/dL (2.5-4.9); SGOT/AST 8 IU/L (3-35); SGPT/ALT 22 U/L (12-78); SODIUM 141 mmol/L (136-145)
[2018-01-16 06:00] LABS: TOTAL PROTEIN 6.5 gm/dL (6.4-8.2)
[2018-01-16 06:44] LABS: PLATELET SUFFICIENCY NORMAL (NORMAL); TOTAL CELLS COUNTED 100 #CELLS
[2018-01-16 08:00] VITALS: BP 136/62
[2018-01-16 12:00] VITALS: BP 143/66
[2018-01-16 16:00] VITALS: BP 152/68
[2018-01-16 20:00] VITALS: BP 158/66; BP 96/50
[2018-01-17] VITALS: BP 123/73
[2018-01-17 06:28] LABS: HEMATOCRIT 40.5 % (37.0-47.0); HEMOGLOBIN 12.4 g/dl (12.0-16.0); MEAN CELL VOLUME 88.2 fl (81.0-99.0); MEAN CORPUSCULAR HGB CONC 30.6 g/dl (33.0-37.0); MEAN PLATELET VOLUME 9.6 fl (9.6-12.3); NUCLEATED RED BLOOD CELL 0.1 10*3/uL (0.0-0.0); NUCLEATED RED BLOOD CELL 0.3 % (0.0-0.0); PLATELET COUNT AUTOMATED 344 10*3/uL (130-400); RED BLOOD COUNT 4.59 10*6/uL (4.10-5.10); RED CELL DISTRI WIDTH 15.4 % (0-14.5); WHITE BLOOD COUNT 17.6 10*3/uL (4.8-10.8)
[2018-01-17 06:40] LABS: CREATININE 1.2 mg/dL (0.55-1.02); POTASSIUM 4.6 mmol/L (3.5-5.1)
[2018-01-17 06:57] LABS: TOTAL CELLS COUNTED 100 #CELLS
[2018-01-17 06:58] LABS: PLATELET SUFFICIENCY NORMAL (NORMAL)
[2018-01-17 08:00] VITALS: BP 152/61
[2018-01-17 12:00] VITALS: BP 129/45
[2018-01-17 16:00] VITALS: BP 148/60
[2018-01-17 20:00] VITALS: BP 118/78
[2018-01-18] VITALS (8 sets, daily range): BP systolic 110–156; BP diastolic 50–101
[2018-01-18 06:03] LABS: HEMOGLOBIN 11.7 g/dl (12.0-16.0); MEAN CELL VOLUME 87.2 fl (81.0-99.0); MEAN CORPUSCULAR HGB 26.8 pg (27.0-31.0); MEAN CORPUSCULAR HGB CONC 30.8 g/dl (33.0-37.0); MEAN PLATELET VOLUME 9.1 fl (9.6-12.3); NUCLEATED RED BLOOD CELL 0.1 10*3/uL (0.0-0.0); NUCLEATED RED BLOOD CELL 0.3 % (0.0-0.0); PLATELET COUNT AUTOMATED 280 10*3/uL (130-400); RED BLOOD COUNT 4.36 10*6/uL (4.10-5.10); RED CELL DISTRI WIDTH 15.3 % (0-14.5); WHITE BLOOD COUNT 16.8 10*3/uL (4.8-10.8)
[2018-01-18 06:27] LABS: CREATININE 1.27 mg/dL (0.55-1.02); POTASSIUM 4.4 mmol/L (3.5-5.1)
[2018-01-18 06:58] LABS: ATYPICAL LYMPHS 1 % (0-0); TOTAL CELLS COUNTED 100 #CELLS
[2018-01-18 06:59] LABS: PLATELET SUFFICIENCY NORMAL (NORMAL)
[2018-01-19] VITALS: BP 110/78
[2018-01-19 06:17] LABS: HEMATOCRIT 37.6 % (37.0-47.0); HEMOGLOBIN 11.4 g/dl (12.0-16.0); MEAN CELL VOLUME 87.9 fl (81.0-99.0); MEAN CORPUSCULAR HGB 26.6 pg (27.0-31.0); MEAN CORPUSCULAR HGB CONC 30.3 g/dl (33.0-37.0); MEAN PLATELET VOLUME 9.6 fl (9.6-12.3); PLATELET COUNT AUTOMATED 248 10*3/uL (130-400); RED BLOOD COUNT 4.28 10*6/uL (4.10-5.10); RED CELL DISTRI WIDTH 15.5 % (0-14.5); WHITE BLOOD COUNT 16.9 10*3/uL (4.8-10.8)
[2018-01-19 06:39] LABS: ALBUMIN 2.5 gm/dl (3.1-4.5); CREATININE 1.38 mg/dL (0.55-1.02); POTASSIUM 4.5 mmol/L (3.5-5.1); TOTAL PROTEIN 5.7 gm/dL (6.4-8.2)
[2018-01-19 07:30] LABS: PLATELET SUFFICIENCY NORMAL (NORMAL); TOTAL CELLS COUNTED 100 #CELLS; TOXIC GRANULATION SLIGHT
[2018-01-19 08:00] VITALS: BP 130/64
[2018-01-19 12:00] VITALS: BP 128/62
[2018-01-19 16:00] VITALS: BP 136/58
[2018-01-19 20:00] VITALS: BP 122/50
[2018-01-20] VITALS: BP 120/60
[2018-01-20 08:00] VITALS: BP 132/64
[2018-01-20 12:00] VITALS: BP 132/56
[2018-01-20 16:00] VITALS: BP 135/60
[2018-01-20 20:00] VITALS: BP 156/51
[2018-01-21] VITALS: BP 146/58
[2018-01-21 08:00] VITALS: BP 112/70
[2018-01-21 12:00] VITALS: BP 154/60
[2018-01-21 16:00] VITALS: BP 155/54
[2018-01-21 20:00] VITALS: BP 163/55
[2018-01-21 22:12] VITALS: BP 146/54
[2018-01-22 01:15] VITALS: BP 115/45
[2018-01-22 06:31] LABS: CREATININE 1.25 mg/dL (0.55-1.02)
[2018-01-22 06:33] LABS: HEMATOCRIT 36.1 % (37.0-47.0); HEMOGLOBIN 11.2 g/dl (12.0-16.0); MEAN CELL VOLUME 87.8 fl (81.0-99.0); MEAN CORPUSCULAR HGB 27.3 pg (27.0-31.0); MEAN PLATELET VOLUME 9.9 fl (9.6-12.3); PLATELET COUNT AUTOMATED 239 10*3/uL (130-400); RED BLOOD COUNT 4.11 10*6/uL (4.10-5.10); RED CELL DISTRI WIDTH 15.6 % (0-14.5); WHITE BLOOD COUNT 14.9 10*3/uL (4.8-10.8)
[2018-01-22 07:22] LABS: PLATELET SUFFICIENCY NORMAL (NORMAL); TOTAL CELLS COUNTED 100 #CELLS; TOXIC GRANULATION SLIGHT
[2018-01-22 08:00] VITALS: BP 130/60
[2018-01-22] MEDS ORDERED: TEFLARO400 MG IV (11:58)
[2018-01-22] MEDS ORDERED: MUCINEX ER600 MG PO (14:48)
[2018-01-22] MEDS ORDERED: PREDNISONE10 MG PO (14:49)
[2018-01-22 16:00] VITALS: BP 140/52
[2018-03-21] MEDS ORDERED: OXYGEN NAS (14:42)
== END 2018-01-22 19:38 | disposition home health service (06) | DRG 314 ==
LOC: ED 17:06 → EDHOLD 18:55 → 4E 18:55
PROVIDERS: Emergency Medicine; Family Medicine; Internal Medicine; Registered Nurse; Student in an Organized Health Care Education/Training Program
PROC: 0JPT0WZ Removal of Totally Implantable Vascular Access Device from Trunk Subcutaneous Tissue and Fascia, Open Approach (ICD-10-PCS; principal; 2018-01-18)
PROC: 05PY33Z Removal of Infusion Device from Upper Vein, Percutaneous Approach (ICD-10-PCS; principal; 2018-01-18)
PROC: 02HV33Z Insertion of Infusion Device into Superior Vena Cava, Percutaneous Approach (ICD-10-PCS; 2018-01-22)
DX: T80.211A Bloodstream infection due to central venous catheter, initial encounter (principal); A41.9 Sepsis, unspecified organism; N17.0 Acute kidney failure with tubular necrosis; J96.21 Acute and chronic respiratory failure with hypoxia; J18.1 Lobar pneumonia, unspecified organism; R65.20 Severe sepsis without septic shock; J44.1 Chronic obstructive pulmonary disease with (acute) exacerbation; I50.32 Chronic diastolic (congestive) heart failure; E44.0 Moderate protein-calorie malnutrition; I13.0 Hypertensive heart and chronic kidney disease with heart failure and stage 1 through stage 4 chronic kidney disease, or unspecified chronic kidney disease; C34.91 Malignant neoplasm of unspecified part of right bronchus or lung; J44.0 Chronic obstructive pulmonary disease with (acute) lower respiratory infection; I27.82 Chronic pulmonary embolism; Y83.8 Other surgical procedures as the cause of abnormal reaction of the patient, or of later complication, without mention of misadventure at the time of the procedure; B95.62 Methicillin resistant Staphylococcus aureus infection as the cause of diseases classified elsewhere; E11.65 Type 2 diabetes mellitus with hyperglycemia; D64.9 Anemia, unspecified; F32.9 Major depressive disorder, single episode, unspecified; F41.9 Anxiety disorder, unspecified; E78.5 Hyperlipidemia, unspecified; E66.9 Obesity, unspecified; N18.3 Chronic kidney disease, stage 3 (moderate); E11.22 Type 2 diabetes mellitus with diabetic chronic kidney disease; E03.9 Hypothyroidism, unspecified; Z99.81 Dependence on supplemental oxygen; Z92.21 Personal history of antineoplastic chemotherapy; Z90.49 Acquired absence of other specified parts of digestive tract; Z98.51 Tubal ligation status; Z90.721 Acquired absence of ovaries, unilateral; Z88.1 Allergy status to other antibiotic agents; Z91.041 Radiographic dye allergy status; Z87.891 Personal history of nicotine dependence; Z79.82 Long term (current) use of aspirin; Z83.6 Family history of other diseases of the respiratory system; Z80.52 Family history of malignant neoplasm of bladder; Y92.89 Other specified places as the place of occurrence of the external cause

== ENCOUNTER 2018-02-16 17:31 | Inpatient (IN) | payer MEDICARE, OTHER ==
[2018-02-16] VITALS (7 sets, daily range): BP systolic 122–152; BP diastolic 49–82
[~2018-02-16] VITALS: Ht 152.4 cm; Wt 76.3 kg
--- NOTE | ~2018-02-16 | PR ---
[place], [place] PROGRESS NOTE NAME: DESMOND GRIFFIN UNIT #: [id number] ROOM: 518 DOCTOR: AVELINO ORTIZ MD,ANGEL BIRTHDATE: [birth year] DOS: 02/21/2018 SUBJECTIVE: The patient has been noted comfortable at this time. Continue Lovenox for this patient, subcutaneous injection b.i.d. Shortness of breath has been noted without any changes from yesterday. She was noted minimal sputum expectoration. There were no symptoms of hemoptysis, fever or chills. He denies any wheezing. OBJECTIVE: VITAL SIGNS: Normal temperature, respiratory rate 20, heart rate 87, blood pressure 156/73. Pulse oxygen saturation recorded as 94% saturation on 6 liters nasal canula. HEENT: Examination shows head was atraumatic. Eyes nonicterus. NECK: Supple. CARDIOVASCULAR: S1, S2 audible. LUNGS: The patient Decreased breaths are previously noted right side. There were no crackles. Moderate expiratory wheezing noted. ABDOMEN: Soft, nontender. Bowel sounds present. EXTREMITIES: Without any acute edema. IMPRESSION: 1. The patient who has been currently noted with acute exacerbation of chronic obstructive pulmonary disease, kgtdy-iu-ycrzpze hypoxic respiratory failure. 2. History of known lung cancer patient's chemo cell cancer, which has been advancing with current chemotherapy known. 3. Resolution of hemoptysis. PLAN OF MANAGEMENT: Continuation of the current plan of management, bronchodilators, oxygen supplementation and other therapies without changes. Usual care, other supportive plan of treatment. ANGEL YOU MD CM:PNTRANS [phone] ANGEL ORTIZ MD 02/21/181939 interface
--- NOTE | ~2018-02-16 | PR ---
[place], [place] PROGRESS NOTE NAME: DESMOND [facility]RIFFIN [id number] UNIT #: [id number] ROOM: [facility] DOCTOR: AVELINO ORTIZ MD,ANGEL BIRTHDATE: [birth year] DOS: 02/18/2018 PULMONARY PROGRESS NOTE SUBJECTIVE: The patient has not been noted with any witnessed hemoptysis. The patient has small productive sputum. Pinkish sputum was expectorated by the patient. She has been noted awake and alert this morning, sitting on the chair, and getting Optiflow Venturi mask oxygen, has 60% oxygen this morning. She has been noted without any symptoms of chest pain. Denies symptoms of nausea, vomiting or general weakness. Denies symptoms of fever or chills. Denies symptoms of pain of the lower extremities or other acute symptoms. Remaining systems were reviewed, they were noted all negative. OBJECTIVE: VITAL SIGNS: Normal temperature, respiratory rate 22, heart rate of 82, blood pressure 120/53-120/55. Pulse oxygen saturation on 60% Optiflow is 94-95% saturation; previously noted on 70% as 95% saturation. HEENT: Examination shows head was atraumatic. Eyes nonicterus. NECK: Supple. CARDIOVASCULAR: S1, S2 audible. LUNGS: Decreased breath sounds on the right lung as previously. ABDOMEN: Soft, nontender. Bowel sounds present. EXTREMITIES: Without any acute edema. MUSCULOSKELETAL: Without acute deformities. CENTRAL NERVOUS SYSTEM: There was no gross focal neurologic deficit. LABORATORY DATA: CBC on 02/18/2018 was noted with normal WBC count, hemoglobin 10.9, platelet count 254,000. BMP: BUN 31, creatinine 1.44, glucose 229, potassium 5.3, calcium 7.1. IMPRESSION: 1. 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 2. The patient with hteif-ct-fzktjyo hypoxic respiratory failure as well. 3. The patient with possible hypercapnia. She refused to have arterial blood gases done yesterday. 4. Acute exacerbation of chronic obstructive pulmonary disease as well. 5. Hyperglycemia, type 2 diabetes mellitus. PLAN OF MANAGEMENT: Continue close monitoring of the patient. If the hemoptysis is resolved, she will be started Lovenox 1 mg/kg of body weight with adjusted dose to her kidney functions. Continuation of the bronchodilators. Continue oxygen supplementation, titrate to maintain pulse ox 92% or greater. Usual care, other supportive therapy, plan of management, treatment plan of care and others. Supportive therapy, plan of care and management, plan of treatment. Additional treatment changes will be done based on progression of the illness. Overall prognosis of the patient still remains guarded. [place], [place] PROGRESS NOTE NAME: DESMOND GRIFFIN UNIT #: [id number] ROOM: [facility] DOCTOR: ANGEL PRETTY MD BIRTHDATE: [birth year] ANGEL YOU MD CM:PNTRANS [id number] ANGEL ORTIZ MD 02/18/18 1229 interface
--- NOTE | ~2018-02-16 | PR ---
[place], [place] PROGRESS NOTE NAME: DESMOND GRIFFIN UNIT #: [id number] ROOM: 518 DOCTOR: AVELINO ORTIZ MD,ANGEL BIRTHDATE: [birth year] DOS: 02/23/2018 PULMONARY PROGRESS NOTE SUBJECTIVE: The patient has been noted comfortable at this time. There are no symptoms of hemoptysis. Continued on Lovenox administration. She has not been noted with symptoms of fever or chills. Steroids also continued. The oxygen requirement remains stable. OBJECTIVE: VITAL SIGNS: Which have recorded show the temperature noted normal, respiratory rate 20, heart rate 70, blood pressure 130/70. The pulse oxygen saturation recorded as 95% saturation on 6 liters nasal cannula. HEENT: Examination shows head was atraumatic. Eyes nonicterus. NECK: Supple. CARDIOVASCULAR: S1 and S2 audible. LUNGS: Noted without any wheezing or crackles. Decreased breath sounds noted in the right lung previously. Wheezing was resolved completely. ABDOMEN: Soft, nontender. EXTREMITIES: Without acute edema. IMPRESSION: The patient with resolving sjvmr-rr-ojltvfo hypoxic respiratory failure, exacerbation of chronic obstructive pulmonary disease, resolution of wheezing. PLAN OF TREATMENT: The patient could be considered for home discharge today on oxygen supplementation; adjusted to the baseline level, up to 6 liters. Continuation of bronchodilator, tapering dose of prednisone, and continue other previous therapy plan of management and care. Use of Lovenox for long-term management of the patient's hypercoagulability and other reason in view of active malignancy. ANGEL YOU MD CM:PNTRANS 1151 [id number] ANGEL ORTIZ MD 02/23/18 1528 interface
--- NOTE | ~2018-02-16 | CON ---
[place], [place] REPORT OF CONSULTATION NAME: DESMOND GRIFFIN UNIT #: [id number] ROOM: 518 DOCTOR: AVELINO ORTIZ MD,ANGEL BIRTHDATE: [birth year] DOS: 02/17/2018 PULMONARY CONSULTATION, EVALUATION AND MANAGEMENT REASON FOR CONSULTATION: Assess for respiratory failure with progressive hypoxia as well as DICTATION ENDS HERE ANGEL YOU MD CM:CONSTR:REPORT OF CONSULTATION 1122 03/02/18 0813 JOE [email or web address]
--- NOTE | ~2018-02-16 | EKG ---
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
--- NOTE | ~2018-02-16 | PR ---
[place], [place] PROGRESS NOTE NAME[id number] UNIT #: [id number] ROOM: 518 DOCTOR: AVELINO ORTIZ MD,ANGEL BIRTHDATE: [birth year] DOS: 02/22/2018 SUBJECTIVE: The patient noted comfortable at this time. Denies symptoms of chest pain. Coughing has been subsiding. There was no hemoptysis. There were no symptoms of chest pain. Shortness breath was gradually resolving. Using oxygen supplementation with a 6 liter nasal cannula. The pulse ox saturation maintained 91-92%. OBJECTIVE: VITAL SIGNS: For the patient as a normal temperature, respiratory rate 20, heart rate 69, blood pressure 155/76. HEENT: Chronic obesity. NECK: Supple. CARDIOVASCULAR: S1, S2 audible. LUNGS: Decreased breath sounds noted in the right lung. The wheezing was noted at this time, decreased from previous examinations. ABDOMEN: Soft, nontender. EXTREMITIES: Chronic obesity. LABORATORY DATA: CBC, WBC count 10.7, hemoglobin 11.7, platelet count was normal. BMP of the patient done this morning, BUN 33, creatinine 1.14. Glucose 207. IMPRESSION: The patient with resolving acute exacerbation of chronic obstructive pulmonary disease, improving acute on chronic hypoxic respiratory failure. There was no evidence of hemoptysis at the present time. PLAN OF MANAGEMENT: Continuation of the Lovenox, bronchodilators, oxygen supplementation therapy, plan of management as in progress. Usual care, other supportive plan of treatment and care plan. ANGEL YOU MD CM:PNTRANS [id number] ANGEL ORTIZ MD 02/22/18 1453 interface
--- NOTE | ~2018-02-16 | CON ---
[place], [place] REPORT OF CONSULTATION NAME: [id number] UN[facility] #: [id number] ROOM: 518 DOCTOR: ANGEL PRETTY MD BIRTHDATE: [birth year] DOS: 02/17/2018 PULMONARY CONSULTATION, EVALUATION AND MANAGEMENT REASON FOR CONSULTATION: Hemoptysis and shortness of breath with respiratory failure. HISTORY OF PRESENT ILLNESS: A 67-year-old white female who has been known with history of squamous cell cancer in the past for a few years. She has been noted currently with enlarging large mass lesion in the right upper lobe at the junction of the right upper and the right lower lobe in the minor fissure. She has been treated in this hospital, remains in this hospital for a prolonged period of time, managed for the acute exacerbation of chronic obstructive pulmonary disease, acute pneumonia, and also noted bacteremia gram-positive organisms catheter related, the MediPort was removed. She had the PICC line inserted, treated with antibiotics. She presented to the hospital in the Emergency Room on 02/16/2018 with the complaints of having increased shortness of breath and progressive hypoxia. The patient has been noted cough with pink sputum expectoration per nursing staff, last night. The patient has been noted hemoptysis about 5-10 mL as a fresh blood. She has been noted with progressive oxygen desaturation. Starting the BiPAP the patient tried to do that. The BiPAP use was canceled because of the current hemoptysis, not noted appropriate treatment. I was asked for consultation. She had not been noted any further episodes of hemoptysis at this time. She has been using high-flow nasal cannula and this morning was started on Optiflow oxygen Venturi system for the medical management of current acute respiratory failure, which appeared to be most likely hypoxia. She has been ordered arterial blood gas, but the patient refused to do so. Code status has been changed to DNRCC arrest, no intubation. This morning, the patient was not speaking at this time, appeared to be sleepy. She has not been able to give me any history. All the history otherwise contained the documentation reviewed from my past records and the consultation, which was done in this patient on previous admissions. PAST MEDICAL HISTORY: 1. History of severe COPD, which was end-stage. 2. Chronic severe hypoxic respiratory failure. 3. Squamous cell cancer, which was noted metastatic in the lung diagnosed with a biopsy. Left upper lung nodule treated with a past chemotherapy and currently was receiving Opdivo as a mean of treatment for the advanced cancer. 4. Type 2 diabetes mellitus. 5. Recurrent anemia with blood transfusion requirement in the past. 6. Essential hypertension. 7. Hypothyroidism. 8. Anxiety disorder. 9. Gram-positive cocci bacteremia overwhelming, MediPort related, which was removed from the last admission in December 2017. PAST SURGICAL HISTORY: 1. Tubal ligation. 2. Cystocele repair. [place], [place] REPORT OF CONSULTATION NAME: DESMOND GRIFFIN UNIT #: [id number] ROOM: 518 DOCTOR: SHANELL PRETTY MDM BIRTHDATE: [birth year] 3. Therapeutic bronchoscopy. 4. CT-guided needle aspiration biopsy of the pulmonary nodule, diagnosed of squamous cell cancer established a few years ago. SOCIAL HISTORY: The patient was living at home. , has 2 children. Denies any history of alcohol use. Tobacco use, since teenager, 1.5 pack of cigarettes per day that has been discontinued previously. FAMILY HISTORY: The patient's father with complication of COPD. Mother of complication of myocardial infarction. One brother from complication related to advanced emphysema. The other sister has been noted history of bronchial asthma and rheumatoid arthritis. CURRENT MEDICATIONS: Administered this hospitalization were noted as use of Norvasc, levothyroxine, Wellbutrin, Mucinex, simvastatin, gabapentin, Solu-Medrol 40 mg b.i.d., DuoNeb q.4h., IV Rocephin, Zithromax, and other p.r.n. medications. DRUG ALLERGIES: Reported as allergy: 1. IVP DYE. 2. BACTRIM. PHYSICAL EXAMINATION: GENERAL: This is a 67-year-old female, who has been noted currently resting on the bed without any acute distress on Venturi mask oxygen flow system was 70%. Pulse oxygen saturation recorded 70%, previously on 50%, the pulse ox saturation recorded at 87%. Vehu-fq-qpmeeaxs obesity. VITAL SIGNS: The vital signs otherwise noted, the temperature 100.1 degrees Fahrenheit on admission, currently noted afebrile. Respiratory 20-26, heart rate 88-103, blood pressure 104/56-123/49. Pulse oxygen saturation recorded on 100% nonrebreather mask, previously as 100%. HEENT: Head was atraumatic. NECK: Supple. CARDIOVASCULAR: S1, S2 audible. LUNGS: Decreased breath sounds in the lung more on the right than the left side. There were no crackles. ABDOMEN: Soft. Muzh-uh-dnnuhugq obesity, bowel sounds present. EXTREMITIES: Without acute edema. MUSCULOSKELETAL: Without any gross deformity. SKIN: Visible skin, no lesions or rashes. CENTRAL NERVOUS SYSTEM: Noted awake previously, currently appeared to be sleepy and drowsy. LABORATORY DATA: The CBC that was done on 02/16/2018, WBC count normal, hemoglobin 11.8, and hematocrit normal. CMP of the patient 02/13/2018 BUN 24, creatinine 1.52, and sodium 135. BMP this morning, BUN 28, creatinine 1.60, glucose 313, sodium 133, and potassium 5.4. CBC of 02/17/2018, WBC count 4.4, hemoglobin 11.4, platelet count was normal. Chest x-ray was done, enlarging large mass noted in the right mid lung area, appeared to be increasing in the size, currently measured as 9 cm in size. [place], [place] REPORT OF CONSULTATION NAME: [facility]OND [facility]RI[facility]IN [id number] UNIT #: [id number] ROOM: 518 [facility] [birth year] IMPRESSION: 1. The patient will be currently admitted to the hospital with progressive severe acute hypoxic respiratory failure, possible hypercapnia could be considered with changes in mental status at this time. 2. Acute hemoptysis arising from the endobronchial lesion. Current enlarging pulmonary mass or bronchial bleeding cannot be completely excluded. 3. The patient with acute kidney injury with increase of creatinine most likely prerenal in origin. 4. Possibility of acute postobstructive pneumonia would be considered as well. 5. Hyperkalemia secondary to acute kidney injury. 6. Progressive lung malignancy, failure to respond to the current immune therapy and past management with the traditional chemotherapy as well. 7. Acute exacerbation of chronic obstructive pulmonary disease. 8. Hyperglycemia, history of type 2 diabetes mellitus, worsened with use of the corticosteroid treatment. PLAN OF MANAGEMENT: Code status has been already addressed with the patient, which is appropriate. The patient will be continued on current antibiotic with monitoring of the respiratory status. BiPAP is contraindicated because of the hemoptysis, will not be applied. IV fluids could be administered to improve the prerenal azotemia as well, avoiding aggressive fluid supplementation. At this time, the patient would not be considered a candidate for the fiberoptic bronchoscopy because of the current advanced respiratory failure as the patient does not wish to be intubated for that, would be the only way to perform the bronchoscopy for assessment of endobronchial tree. The patient was also receiving Xarelto, which was discontinued at the present time because of the current hemoptysis. Monitoring and management of the hyperkalemia, if it worsens. Overall prognosis is noted considerably poor. Possible consideration for the palliative care and assessment of the patient by hospice services agreeable by the patient and the family members could be considered. Arterial blood gases were ordered, which are refused by the patient. Aspiration precaution for this patient would be done. Other usual plan of therapy and care as in progress. Supportive care, other treatment as well as ongoing. Thank you for allowing me to participate in the care of this patient. ANGEL YOU MD CM:CONSTR:REPORT OF CONSULTATION 1154 03/02/18 0813 interface
--- NOTE | ~2018-02-16 | PR ---
[place], [place] PROGRESS NOTE NAME: DESMOND GRIFFIN UNIT #: [id number] ROOM: 518 DOCTOR: AVELINO ORTIZ MD,ANGEL BIRTHDATE: [birth year] DOS: 02/20/2018 SUBJECTIVE: She was noted comfortable at this time, resting on the bed, still noted blood-tinged sputum. Denies symptoms of fever or chills. Denies symptoms of nausea, vomiting, diarrhea, or abdominal pain. OBJECTIVE: VITAL SIGNS: The patient has normal temperature, respiratory rate 22, pulse 82, blood pressure 115/77, pulse oxygen saturation on 6 liters 93% saturation. HEENT: No acute change. NECK: Supple. CARDIOVASCULAR: S1, S2 audible. LUNGS: Without any wheeze or crackles. ABDOMEN: Soft, nontender. Bowel sounds present. EXTREMITIES: No edema. LABORATORY DATA: CBC was noted essentially grossly normal. BMP today was noted BUN 32, creatinine normal, glucose 185. IMPRESSION: 1. The patient who has been currently noted with advancing lung cancer has a squamous cell. Large mass lesion in the right lung, which has been increasing in spite of current immune therapy treatment. 2. The patient's hemoptysis seem to be resolved, only blood-tinged sputum was noted. 3. Chronic hypercoagulability. PLAN OF TREATMENT: Continue to titrate oxygen supplementation, maintain pulse ox saturation 92% or greater, bronchodilators. BiPAP as tolerated. Continue the Lovenox adjusted due to kidney functions as twice a day dosing. ANGEL YOU MD CM:PNTRANS [id number] ANGEL ORTIZ MD 02/20/18 2256 interface
--- NOTE | ~2018-02-16 | PR ---
[place], [place] PROGRESS NOTE NAME: DESMOND GRIFFIN UNIT #: [id number] ROOM: 518 DOCTOR: AVELINO ORTIZ MD,ANGEL BIRTHDATE: [birth year] DOS: 02/19/2018 SUBJECTIVE: The patient noted comfortable this morning. Still requiring oxygen supplementation 50% with Optiflow oxygen supplementation, sitting on the chair this morning, transferred from the intensive care unit to the medical floor. There has not been any witnessed hemoptysis. There were no symptoms of chest pain, fever or chills. OBJECTIVE: VITAL SIGNS: For the patient which has been recorded showed normal temperature, respiratory rate 20, heart rate 72, blood pressure 143/67. Pulse ox saturation 50% Optiflow was 90-94% saturation noted. HEENT: Examination shows chronic obesity. NECK: Supple. CARDIOVASCULAR: S1, S2 audible. LUNGS: Decreased breath sounds on the right chest auscultation. ABDOMEN: Soft, nontender. Bowel sounds present. EXTREMITIES: Without any acute edema. IMPRESSION: 1. Acute exacerbation of chronic obstructive pulmonary disease. 2. Qvaaq-lu-cyihsue severe hypoxemic respiratory failure. 3. Hemoptysis. 4. Acute kidney injury. PLAN OF MANAGEMENT: Starting the patient on Lovenox. The patient adjusted to the kidney function of the patient as a therapeutic dose today. Monitor for any recurrent hemoptysis. Continue other therapy, plan of management. The patient was also noted mild hyperkalemia with elevation of potassium 5.9, which has been treated by the primary care attending. ANGEL YOU MD CM:PNTRANS [id number] 1131 ANGEL ORTIZ MD 02/19/18 1132 interface
--- NOTE | ~2018-02-16 | EKG ---
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
[~2018-02-16 17:31] MED LIST changes: +ASPIRIN LITE C325 MG PO; +OPDIVO; +OPDIVO40 MG/4 ML IV; +TEFLARO400 MG IV; +XARE20MG PO
[2018-02-16 18:08] LABS: BASO % 0.3 % (0.0-1.0); EOS # 0.1 10*3/uL (0.0-0.4); EOS % 2.2 % (1.0-4.0); HEMATOCRIT 38.4 % (37.0-47.0); HEMOGLOBIN 11.8 g/dl (12.0-16.0); LYMPH % 33.3 % (27.0-41.0); MEAN CELL VOLUME 88.9 fl (81.0-99.0); MEAN CORPUSCULAR HGB 27.3 pg (27.0-31.0); MEAN CORPUSCULAR HGB CONC 30.7 g/dl (33.0-37.0); MONO # 0.7 10*3/uL (0.1-1.0); MONO % 11.9 % (3.0-9.0); NEUT # 3.1 10*3/uL (2.3-7.9); PLATELET COUNT AUTOMATED 224 10*3/uL (130-400); RED BLOOD COUNT 4.32 10*6/uL (4.10-5.10); RED CELL DISTRI WIDTH 16.1 % (0-14.5)
[2018-02-16 18:22] LABS: ALBUMIN 3.1 gm/dl (3.1-4.5); CREATININE 1.52 mg/dL (0.55-1.02); POTASSIUM 4.3 mmol/L (3.5-5.1); TOTAL PROTEIN 6.7 gm/dL (6.4-8.2)
[2018-02-16] MEDS ORDERED: Ipratropium Brom3 ML INH (22:34)
[2018-02-16] MEDS ORDERED: INCRUSE ELLI62.5 MCG INH (22:45)
[2018-02-16] MEDS ORDERED: BREO ELLIPTA 11 EACH INH (22:45)
[2018-02-17] VITALS: BP 107/49
[2018-02-17 04:00] VITALS: BP 119/58
[2018-02-17 07:03] LABS: CREATININE 1.6 mg/dL (0.55-1.02)
[2018-02-17 07:04] LABS: BASO % 0.2 % (0.0-1.0); EOS % 0.2 % (1.0-4.0); HEMOGLOBIN 11.4 g/dl (12.0-16.0); LYMPH # 0.5 10*3/uL (1.3-4.4); LYMPH % 12.4 % (27.0-41.0); MEAN CELL VOLUME 90.3 fl (81.0-99.0); MEAN CORPUSCULAR HGB 27.1 pg (27.0-31.0); MONO # 0.1 10*3/uL (0.1-1.0); MONO % 1.8 % (3.0-9.0); NEUT # 3.7 10*3/uL (2.3-7.9); NEUT % 84.7 % (47.0-73.0); PHOSPHOROUS 3.9 mg/dL (2.5-4.9); PLATELET COUNT AUTOMATED 232 10*3/uL (130-400); RED BLOOD COUNT 4.21 10*6/uL (4.10-5.10); RED CELL DISTRI WIDTH 15.8 % (0-14.5); WHITE BLOOD COUNT 4.4 10*3/uL (4.8-10.8)
[2018-02-17 07:08] LABS: POTASSIUM 5.4 mmol/L (3.5-5.1)
[2018-02-17 08:00] VITALS: BP 113/62; BP 120/60
[2018-02-17 12:00] VITALS: BP 113/62
[2018-02-17 16:00] VITALS: BP 108/56
[2018-02-17 20:00] VITALS: BP 121/55
[2018-02-18] VITALS: BP 128/65
[2018-02-18 04:00] VITALS: BP 126/63
[2018-02-18 05:34] LABS: CREATININE 1.44 mg/dL (0.55-1.02); PHOSPHOROUS 2.7 mg/dL (2.5-4.9); POTASSIUM 5.3 mmol/L (3.5-5.1)
[2018-02-18 06:18] LABS: BASO % 0.2 % (0.0-1.0); HEMATOCRIT 36.9 % (37.0-47.0); HEMOGLOBIN 10.9 g/dl (12.0-16.0); LYMPH # 0.8 10*3/uL (1.3-4.4); LYMPH % 9.6 % (27.0-41.0); MEAN CORPUSCULAR HGB 26.6 pg (27.0-31.0); MEAN CORPUSCULAR HGB CONC 29.5 g/dl (33.0-37.0); MONO # 0.3 10*3/uL (0.1-1.0); MONO % 3.3 % (3.0-9.0); NEUT # 7.5 10*3/uL (2.3-7.9); NEUT % 86.1 % (47.0-73.0); PLATELET COUNT AUTOMATED 254 10*3/uL (130-400); RED CELL DISTRI WIDTH 15.7 % (0-14.5); WHITE BLOOD COUNT 8.8 10*3/uL (4.8-10.8)
[2018-02-18 08:00] VITALS: BP 121/53
[2018-02-18 12:00] VITALS: BP 120/63
[2018-02-18 16:00] VITALS: BP 121/61
[2018-02-18 20:00] VITALS: BP 132/74
[2018-02-19] VITALS: BP 122/61; BP 143/67
[2018-02-19 06:30] LABS: BASO % 0.3 % (0.0-1.0); EOS % 0.1 % (1.0-4.0); HEMATOCRIT 37.7 % (37.0-47.0); HEMOGLOBIN 11.1 g/dl (12.0-16.0); LYMPH # 0.9 10*3/uL (1.3-4.4); LYMPH % 8.1 % (27.0-41.0); MEAN CELL VOLUME 90.4 fl (81.0-99.0); MEAN CORPUSCULAR HGB 26.6 pg (27.0-31.0); MEAN CORPUSCULAR HGB CONC 29.4 g/dl (33.0-37.0); MEAN PLATELET VOLUME 9.6 fl (9.6-12.3); MONO # 0.2 10*3/uL (0.1-1.0); MONO % 2.2 % (3.0-9.0); NEUT # 9.3 10*3/uL (2.3-7.9); NEUT % 87.1 % (47.0-73.0); NUCLEATED RED BLOOD CELL 0.2 % (0.0-0.0); PLATELET COUNT AUTOMATED 295 10*3/uL (130-400); RED BLOOD COUNT 4.17 10*6/uL (4.10-5.10); WHITE BLOOD COUNT 10.6 10*3/uL (4.8-10.8)
[2018-02-19 06:45] LABS: CREATININE 1.35 mg/dL (0.55-1.02); POTASSIUM 5.9 mmol/L (3.5-5.1)
[2018-02-19 08:00] VITALS: BP 138/68
[2018-02-19 12:00] VITALS: BP 139/66
[2018-02-19 16:00] VITALS: BP 152/62
[2018-02-19 20:00] VITALS: BP 144/65
[2018-02-20] VITALS: BP 149/76
[2018-02-20 08:00] VITALS: BP 118/64; BP 159/77
[2018-02-20 10:11] LABS: HEMATOCRIT 38.6 % (37.0-47.0); HEMOGLOBIN 11.7 g/dl (12.0-16.0); MEAN CELL VOLUME 89.8 fl (81.0-99.0); MEAN CORPUSCULAR HGB 27.2 pg (27.0-31.0); MEAN CORPUSCULAR HGB CONC 30.3 g/dl (33.0-37.0); MEAN PLATELET VOLUME 9.2 fl (9.6-12.3); PLATELET COUNT AUTOMATED 311 10*3/uL (130-400); RED CELL DISTRI WIDTH 16.3 % (0-14.5); WHITE BLOOD COUNT 10.2 10*3/uL (4.8-10.8)
[2018-02-20 10:24] LABS: BUN 32 mg/dl (7-24); CHLORIDE 108 mmol/L (98-107); CREATININE 1.01 mg/dL (0.55-1.02)
[2018-02-20 10:31] LABS: SODIUM 142 mmol/L (136-145)
[2018-02-20 10:36] LABS: POTASSIUM 4.6 mmol/L (3.5-5.1)
[2018-02-20 10:43] LABS: PLATELET SUFFICIENCY NORMAL (NORMAL); TOTAL CELLS COUNTED 100 #CELLS
[2018-02-20 10:44] LABS: TOXIC GRANULATION SLIGHT; VACUOLATION OF NEUTROPHILS SLIGHT
[2018-02-20 12:00] VITALS: BP 131/59
[2018-02-20 16:00] VITALS: BP 151/66
[2018-02-20 20:00] VITALS: BP 143/60
[2018-02-21] VITALS: BP 152/112
[2018-02-21 04:00] VITALS: BP 128/72
[2018-02-21 06:21] LABS: HEMOGLOBIN 11.3 g/dl (12.0-16.0); MEAN CELL VOLUME 89.6 fl (81.0-99.0); MEAN CORPUSCULAR HGB 27.4 pg (27.0-31.0); MEAN CORPUSCULAR HGB CONC 30.5 g/dl (33.0-37.0); MEAN PLATELET VOLUME 9.4 fl (9.6-12.3); PLATELET COUNT AUTOMATED 328 10*3/uL (130-400); RED BLOOD COUNT 4.13 10*6/uL (4.10-5.10); RED CELL DISTRI WIDTH 16.5 % (0-14.5); WHITE BLOOD COUNT 10.6 10*3/uL (4.8-10.8)
[2018-02-21 06:33] LABS: BUN 32 mg/dl (7-24); CHLORIDE 106 mmol/L (98-107); CREATININE 0.97 mg/dL (0.55-1.02); POTASSIUM 4.8 mmol/L (3.5-5.1); SODIUM 140 mmol/L (136-145)
[2018-02-21 07:08] LABS: TOTAL CELLS COUNTED 100 #CELLS
[2018-02-21 07:09] LABS: PLATELET SUFFICIENCY NORMAL (NORMAL); TOXIC GRANULATION SLIGHT
[2018-02-21 08:00] VITALS: BP 157/71
[2018-02-21 12:00] VITALS: BP 156/73
[2018-02-21 16:00] VITALS: BP 146/60
[2018-02-21 20:00] VITALS: BP 158/64
[2018-02-22] VITALS: BP 158/68
[2018-02-22 07:05] LABS: HEMATOCRIT 37.9 % (37.0-47.0); HEMOGLOBIN 11.7 g/dl (12.0-16.0); MEAN CELL VOLUME 88.8 fl (81.0-99.0); MEAN CORPUSCULAR HGB 27.4 pg (27.0-31.0); MEAN CORPUSCULAR HGB CONC 30.9 g/dl (33.0-37.0); MEAN PLATELET VOLUME 9.3 fl (9.6-12.3); NUCLEATED RED BLOOD CELL 0.3 % (0.0-0.0); PLATELET COUNT AUTOMATED 345 10*3/uL (130-400); RED BLOOD COUNT 4.27 10*6/uL (4.10-5.10); RED CELL DISTRI WIDTH 16.6 % (0-14.5); WHITE BLOOD COUNT 10.5 10*3/uL (4.8-10.8)
[2018-02-22 07:08] LABS: ACT PARTIAL THROMBO TIME 23.1 SECONDS (20.8-31.5)
[2018-02-22 07:24] LABS: CREATININE 1.14 mg/dL (0.55-1.02); POTASSIUM 4.4 mmol/L (3.5-5.1)
[2018-02-22 07:40] LABS: PLATELET SUFFICIENCY NORMAL (NORMAL); TOTAL CELLS COUNTED 100 #CELLS
[2018-02-22 08:00] VITALS: BP 155/76
[2018-02-22 12:00] VITALS: BP 130/78
[2018-02-22 16:00] VITALS: BP 154/72
[2018-02-22 20:00] VITALS: BP 155/66
[2018-02-23] VITALS: BP 141/71
[2018-02-23 07:04] LABS: BUN 33 mg/dl (7-24); CHLORIDE 107 mmol/L (98-107); CREATININE 1.03 mg/dL (0.55-1.02); POTASSIUM 4.3 mmol/L (3.5-5.1); SODIUM 143 mmol/L (136-145)
[2018-02-23 08:00] VITALS: BP 130/70
[2018-02-23 12:00] VITALS: BP 144/66
[2018-02-23] MEDS ORDERED: Oscal,Oyster S500 MG PO (12:03)
[2018-02-23] MEDS ORDERED: ZITHROMAX500 MG PO (12:03)
[2018-02-23] MEDS ORDERED: PREDNISONE10 MG PO (12:04)
[2018-03-21] MEDS ORDERED: OXYGEN NAS (14:42)
== END 2018-02-23 16:46 | disposition home health service (06) | DRG 871 ==
LOC: ED 17:31 → EDHOLD 19:02 → ICCU 19:02 → 4E 19:13 → ICCU 20:06 → 5E 02-18 19:39
PROVIDERS: Emergency Medicine; Family Medicine; Internal Medicine; Student in an Organized Health Care Education/Training Program
PROC: 5A09357 Assistance with Respiratory Ventilation, Less than 24 Consecutive Hours, Continuous Positive Airway Pressure (ICD-10-PCS; principal; 2018-02-16)
DX: A41.9 Sepsis, unspecified organism (principal); J18.9 Pneumonia, unspecified organism; J96.21 Acute and chronic respiratory failure with hypoxia; J96.22 Acute and chronic respiratory failure with hypercapnia; E87.1 Hypo-osmolality and hyponatremia; J44.1 Chronic obstructive pulmonary disease with (acute) exacerbation; I50.32 Chronic diastolic (congestive) heart failure; I27.82 Chronic pulmonary embolism; E44.0 Moderate protein-calorie malnutrition; I13.0 Hypertensive heart and chronic kidney disease with heart failure and stage 1 through stage 4 chronic kidney disease, or unspecified chronic kidney disease; C34.91 Malignant neoplasm of unspecified part of right bronchus or lung; D68.59 Other primary thrombophilia; Z66 Do not resuscitate; R65.20 Severe sepsis without septic shock; D63.8 Anemia in other chronic diseases classified elsewhere; E87.5 Hyperkalemia; E03.9 Hypothyroidism, unspecified; G54.0 Brachial plexus disorders; Z51.5 Encounter for palliative care; E11.65 Type 2 diabetes mellitus with hyperglycemia; N18.3 Chronic kidney disease, stage 3 (moderate); E11.22 Type 2 diabetes mellitus with diabetic chronic kidney disease; E66.9 Obesity, unspecified; Z99.81 Dependence on supplemental oxygen; Z90.49 Acquired absence of other specified parts of digestive tract; Z91.041 Radiographic dye allergy status; Z88.9 Allergy status to unspecified drugs, medicaments and biological substances; Z90.710 Acquired absence of both cervix and uterus; Z98.51 Tubal ligation status; Z80.52 Family history of malignant neoplasm of bladder; Z83.6 Family history of other diseases of the respiratory system; Z82.49 Family history of ischemic heart disease and other diseases of the circulatory system; Z79.4 Long term (current) use of insulin; Z68.24 Body mass index [BMI] 24.0-24.9, adult

== ENCOUNTER 2018-03-28 19:19 | Inpatient (IN) | payer OTHER, MEDICARE ==
[~2018-03-28] VITALS: Ht 180.3 cm; Wt 86.2 kg
[~2018-03-28 19:19] MED LIST changes: +BREO ELLIPTA 11 EACH INH; +INCRUSE ELLI62.5 MCG INH; +Ipratropium Brom3 ML INH; +Oscal,Oyster S500 MG PO
[2018-03-28 20:00] VITALS: BP 139/59
[2018-03-28] MEDS ORDERED: NEURONTIN300 MG PO (22:09)
[2018-03-28] MEDS ORDERED: SOLU-MEDRO40 MG/1 ML IV (22:10)
[2018-03-28] MEDS ORDERED: PROTONIX IV40 MG IV (22:10)
[2018-03-28] MEDS ORDERED: SYNTHROID,LEV125 MCG PO (22:11)
[2018-03-28] MEDS ORDERED: ATIVAN2 MG/1 ML IV (22:12)
[2018-03-28] MEDS ORDERED: ATROPINE SULFATE2 M2 SL (22:13)
[2018-03-28] MEDS ORDERED: DILAUDID0.5 MG/0.5 IU (22:14)
[2018-03-28] MEDS ORDERED: TYLENOL650 MG R (22:15)
[2018-03-28] MEDS ORDERED: TYLENOL325 M2 PO (22:16)
[2018-03-28] MEDS ORDERED: ONDANSETRON4 MG IV (22:16)
[2018-03-29] VITALS: BP 161/72
[2018-03-29 08:00] VITALS: BP 129/59; BP 160/90
[2018-03-29 12:00] VITALS: BP 133/52
[2018-03-29 16:00] VITALS: BP 119/64
[2018-03-29 20:00] VITALS: BP 131/78
[2018-03-30] VITALS: BP 146/68
[2018-03-30 08:00] VITALS: BP 132/64
[2018-03-30 12:00] VITALS: BP 134/57
[2018-03-30 16:00] VITALS: BP 162/74
[2018-03-30 20:00] VITALS: BP 141/59
[2018-03-31] VITALS: BP 151/58
[2018-03-31 08:00] VITALS: BP 154/71
[2018-03-31 12:00] VITALS: BP 143/60
[2018-03-31 16:00] VITALS: BP 108/67
[2018-03-31 20:00] VITALS: BP 141/62
[2018-04-01] VITALS: BP 148/58
[2018-04-01 08:00] VITALS: BP 140/70
[2018-04-01 12:00] VITALS: BP 141/55
[2018-04-01 16:00] VITALS: BP 143/83
[2018-04-01 20:00] VITALS: BP 133/64
[2018-04-02] VITALS: BP 147/69
[2018-04-02 08:00] VITALS: BP 138/88
[2018-04-02 12:00] VITALS: BP 128/41
[2018-04-02 16:00] VITALS: BP 146/70
[2018-04-02 20:00] VITALS: BP 164/70
[2018-04-03] VITALS: BP 121/67
[2018-04-03 08:00] VITALS: BP 134/74
[2018-04-03 08:32] LABS: BUN 23 mg/dl (7-24); CHLORIDE 101 mmol/L (98-107); CREATININE 0.79 mg/dL (0.55-1.02); SODIUM 140 mmol/L (136-145)
[2018-04-03 16:00] VITALS: BP 110/49
[2018-04-03 20:00] VITALS: BP 123/93
[2018-04-04] VITALS: BP 129/96
[2018-04-04 06:08] LABS: BASO % 0.2 % (0.0-1.0); EOS # 0.2 10*3/uL (0.0-0.4); EOS % 1.2 % (1.0-4.0); HEMATOCRIT 34.1 % (37.0-47.0); HEMOGLOBIN 10.2 g/dl (12.0-16.0); LYMPH # 1.4 10*3/uL (1.3-4.4); LYMPH % 8.3 % (27.0-41.0); MEAN CELL VOLUME 90.5 fl (81.0-99.0); MEAN CORPUSCULAR HGB 27.1 pg (27.0-31.0); MEAN CORPUSCULAR HGB CONC 29.9 g/dl (33.0-37.0); MEAN PLATELET VOLUME 10.6 fl (9.6-12.3); MONO # 0.8 10*3/uL (0.1-1.0); MONO % 4.5 % (3.0-9.0); NEUT # 14.2 10*3/uL (2.3-7.9); NEUT % 84.3 % (47.0-73.0); PLATELET COUNT AUTOMATED 278 10*3/uL (130-400); RED BLOOD COUNT 3.77 10*6/uL (4.10-5.10); RED CELL DISTRI WIDTH 17.9 % (0-14.5); WHITE BLOOD COUNT 16.9 10*3/uL (4.8-10.8)
[2018-04-04 08:00] VITALS: BP 118/90
[2018-04-04 12:00] VITALS: BP 150/63
== END 2018-04-04 17:13 | DRG 871 ==
LOC: 4E 19:19
PROVIDERS: Internal Medicine
DX: A41.9 Sepsis, unspecified organism (principal); J18.9 Pneumonia, unspecified organism; E43 Unspecified severe protein-calorie malnutrition; J96.01 Acute respiratory failure with hypoxia; J44.1 Chronic obstructive pulmonary disease with (acute) exacerbation; E87.1 Hypo-osmolality and hyponatremia; E87.2 Acidosis; I13.0 Hypertensive heart and chronic kidney disease with heart failure and stage 1 through stage 4 chronic kidney disease, or unspecified chronic kidney disease; R04.2 Hemoptysis; J44.0 Chronic obstructive pulmonary disease with (acute) lower respiratory infection; I50.32 Chronic diastolic (congestive) heart failure; C34.91 Malignant neoplasm of unspecified part of right bronchus or lung; R65.20 Severe sepsis without septic shock; D63.8 Anemia in other chronic diseases classified elsewhere; E66.9 Obesity, unspecified; Z66 Do not resuscitate; Z51.5 Encounter for palliative care; R79.89 Other specified abnormal findings of blood chemistry; R79.82 Elevated C-reactive protein (CRP); D47.3 Essential (hemorrhagic) thrombocythemia; E11.65 Type 2 diabetes mellitus with hyperglycemia; E03.9 Hypothyroidism, unspecified; E11.22 Type 2 diabetes mellitus with diabetic chronic kidney disease; N18.3 Chronic kidney disease, stage 3 (moderate); Z99.81 Dependence on supplemental oxygen; Z79.4 Long term (current) use of insulin; Z90.722 Acquired absence of ovaries, bilateral; Z90.49 Acquired absence of other specified parts of digestive tract; Z98.51 Tubal ligation status; Z87.891 Personal history of nicotine dependence; Z82.49 Family history of ischemic heart disease and other diseases of the circulatory system; Z80.52 Family history of malignant neoplasm of bladder; Z82.5 Family history of asthma and other chronic lower respiratory diseases; Z91.041 Radiographic dye allergy status; Z88.2 Allergy status to sulfonamides; Z91.048 Other nonmedicinal substance allergy status; Z79.82 Long term (current) use of aspirin; Z79.899 Other long term (current) drug therapy; Z68.37 Body mass index [BMI] 37.0-37.9, adult